=== PATIENT | female | born 1985 | race Caucasian/White ===

== ENCOUNTER 2020-05-15 12:24 | Emergency (ER) | payer OTHER ==
[2020-05-15 12:31] VITALS: TEMP 98.2
[2020-05-15] MEDS ORDERED: SODIUM CHLORIDE 0.9% 1,000 ML IV STA (12:50)
[2020-05-15 13:18] LABS: Basophils % (A) 0 %; Eosinophils # (A) 0.1 k/uL (0-0.7); Eosinophils % (A) 1 %; HCT 37.3 % (34.0-46.0); HGB 12.9 gm/dL (11.4-16.0); Lymphocytes # (A) 2.2 k/uL (1.0-4.8); Lymphocytes % (A) 25 %; MCH 31.1 pg (25.0-35.0); MCHC 34.7 g/dL (31.0-37.0); MCV 89.7 fL (80.0-100.0); Mean Platelet Volume 7.6; Monocytes # (A) 0.5 k/uL (0-1.0); Monocytes % (A) 6 %; Neutrophils # (A) 5.7 k/uL (1.3-7.7); Neutrophils % (A) 66 %; Platelet Count 285 k/uL (150-450); RBC 4.16 m/uL (3.80-5.40); RDW 12.9 % (11.5-15.5); WBC 8.8 k/uL (3.8-10.6)
[2020-05-15 13:23] LABS: Appearance,Urine Clear (Clear); Bilirubin,Urine Negative (Negative); Blood,Urine Negative (Negative); Color,Urine Yellow; Glucose,Urine (UA) Negative (Negative); Ketones,Urine Negative (Negative); Leukocyte Esterase,Urine Negative (Negative); Nitrite,Urine Negative (Negative); PH, Urine 6.5 (5.0-8.0); Protein,Urine Negative (Negative); Specific Gravity,Urine 1.017 (1.001-1.035); Urobilinogen,Urine <2.0 mg/dL (<2.0)
[2020-05-15] MEDS ORDERED: ALBUTEROL NEBULIZED 2.5 MG/3 ML INHALATION STA (13:23)
[2020-05-15 13:25] LABS: ALT 13 U/L (4-34); AST 18 U/L (14-36); African American GFR (CKD) >90 (>60 ml/min/1.73 sqM); Albumin 4.3 g/dL (3.5-5.0); Alkaline Phosphatase 43 U/L (38-126); Anion Gap 10 mmol/L; Blood Urea Nitrogen 12 mg/dL (7-17); Calcium 9.8 mg/dL (8.4-10.2); Carbon Dioxide 24 mmol/L (22-30); Chloride 103 mmol/L (98-107); Glucose 92 mg/dL (74-99); Non-African American GFR(CKD) >90 (>60 ml/min/1.73 sqM); Potassium 4.1 mmol/L (3.5-5.1); Sodium 137 mmol/L (137-145); Total Bilirubin 0.3 mg/dL (0.2-1.3); Total Protein 7.3 g/dL (6.3-8.2)
--- NOTE | 2020-05-15 13:32 | ED ---
SOB HPI - General Chief Complaint: Shortness of Breath Stated Complaint: COVID syptoms Time Seen by Provider: 05/15/20 12:35 Source: patient Mode of arrival: ambulatory Limitations: no limitations - History of Present Illness Initial Comments: Patient is a 34-year-old female currently 9 weeks , presenting to emergency Department with complaints of a cough, diarrhea, shortness of breath for the last 3 days. Patient states she had a mild cough for the first few days and then over the past 2 days, her symptoms seem to be increasing. She does have history of mild asthma. She states she does have some burning in the chest when she coughs. She has had some nausea, one episode of vomiting. She has had no appetite over the past few days. She denies any fevers but did wake up in the middle night drenched in sweat and has been having chills. She denies any abdominal pain, no dysuria, no vaginal bleeding. She has no further complaints at this time. She is afebrile upon arrival to the ER, 100% on room air.. - Related Data Home Medications Medication Instructions Recorded Confirmed Cetirizine HCl 10 mg PO DAILY 05/15/20 05/15/20 FLUoxetine HCL 20 mg PO DAILY 05/15/20 05/15/20 Fluticasone Nasal [place] [Flonase 2 spr EA NOSTRIL DAILY PRN 05/15/20 05/15/20 Nasal [place]] Omeprazole 40 mg PO DAILY 05/15/20 05/15/20 Ugb-Xowm-Nvzss Acid 1 cap PO DAILY 05/15/20 05/15/20 [-U Capsule (formulary)] carBAMazepine 200 mg PO DAILY 05/15/20 05/15/20 Previous Rx's Medication Instructions Recorded Albuterol Inhaler [Ventolin Hfa 1 puff INHALATION RT-QID PRN #1 05/15/20 Inhaler] puff Allergies Allergy/AdvReac Type Severity Reaction Status Date / Time morphine Allergy Swelling Verified 05/15/20 14:02 phenytoin [From Dilantin] AdvReac Rash/Hives Verified 05/15/20 14:02 Sulfa (Sulfonamide AdvReac Rash/Hives Verified 05/15/20 14:02 Antibiotics) Review of Systems ROS Statement: Those systems with pertinent positive or pertinent negative responses have been documented in the HPI. ROS Other: All systems not noted in ROS Statement are negative. Past Medical History Past Medical History: Cancer, GERD/Reflux, Seizure Disorder Additional Past Medical History / Comment(s): cervical cancer. History of Any Multi-Drug Resistant Organisms: None Reported Past Surgical History: Orthopedic Surgery, Uterine Ablation Additional Past Surgical History / Comment(s): colonoscopy, EGD. cyst removal on uterus and neck surgery. Past Psychological History: Anxiety, Depression Smoking Status: Never smoker Past Alcohol Use History: None Reported Past Drug Use History: None Reported General Exam - General Exam Comments Initial Comments: GENERAL: Patient is well-developed and well-nourished. Patient is nontoxic and in no acute distress. HEAD: Atraumatic, normocephalic. EYES: Pupils equal round and reactive to light, extraocular movements intact, sclera anicteric, conjunctiva are normal. Eyelids were unremarkable. ENT: TMs normal, nares patent, oropharynx clear without exudates. Moist mucous membranes. NECK: Normal range of motion, supple without lymphadenopathy or JVD. LUNGS: Unlabored respirations. Breath sounds clear to auscultation bilaterally and equal. No wheezes rales or rhonchi. HEART: Regular rate and rhythm without murmurs, rubs or gallops. ABDOMEN: Soft, nontender, normoactive bowel sounds. No guarding, no rebound. No masses appreciated. : Deferred MUSCULOSKELETAL: Normal extremities with adequate strength and normal range of motion, no pitting or edema. No clubbing or cyanosis. NEUROLOGICAL: Patient is alert and oriented x 3. Motor and sensory are also intact. Cranial nerves II through XII grossly intact. Symmetrical smile. Normal speech, normal gait. PSYCH: Normal mood, normal affect. SKIN: Warm, Dry, normal turgor, no rashes or lesions noted. Limitations: no limitations Course Vital Signs 05/15/20 05/15/20 05/15/20 12:27 13:46 13:53 Temperature 98.2 F Pulse Rate 85 84 70 Respiratory 20 16 18 Rate Blood Pressure 153/108 122/77 O2 Sat by Pulse 100 100 Oximetry Medical Decision Making - Medical Decision Making Patient is a 34-year-old female presenting to the emergency Department with concerns of a cough, cold-like symptoms for the past 3 days. She did have bodyaches, chills as well, burning when she coughs. She is currently 9 weeks as well. Her EKG showed no acute process, chest x-ray is normal. Labs are unremarkable, normal urine. Rapid influenza and Covid are both negative. I did give patient some fluids and an albuterol breathing treatment, she reports improvement in her symptoms. I discussed with patient that her symptoms most likely viral nature, I will send her home with an albuterol inhaler. Recommended continuing to increase her fluid intake, Tylenol as needed. She can follow up with her [employer]. Patient is stable for discharge. Patient is in agreement with this plan of care. Return parameters were discussed with the patient and they verbalized understanding. Case discussed with Dr. Gonzalez. - Lab Data Result diagrams: 05/15/20 12:52 05/15/20 12:52 Lab Results 05/15/20 05/15/20 05/15/20 Range/Units 12:52 12:52 12:52 WBC 8.8 (3.8-10.6) k/uL RBC 4.16 (3.80-5.40) m/uL Hgb 12.9 (11.4-16.0) gm/dL Hct 37.3 (34.0-46.0) % MCV 89.7 (80.0-100.0) fL MCH 31.1 (25.0-35.0) pg MCHC 34.7 (31.0-37.0) g/dL RDW 12.9 (11.5-15.5) % Plt Count 285 (150-450) k/uL MPV 7.6 Neutrophils % 66 % Lymphocytes % 25 % Monocytes % 6 % Eosinophils % 1 % Basophils % 0 % Neutrophils # 5.7 (1.3-7.7) k/uL Lymphocytes # 2.2 (1.0-4.8) k/uL Monocytes # 0.5 (0-1.0) k/uL Eosinophils # 0.1 (0-0.7) k/uL Basophils # 0.0 (0-0.2) k/uL Sodium 137 (137-145) mmol/L Potassium 4.1 (3.5-5.1) mmol/L Chloride 103 (98-107) mmol/L Carbon Dioxide 24 (22-30) mmol/L Anion Gap 10 mmol/L BUN 12 (7-17) mg/dL Creatinine 0.57 (0.52-1.04) mg/dL Est GFR (CKD-EPI)AfAm >90 (>60 ml/min/1.73 sqM) Est GFR (CKD-EPI)NonAf >90 (>60 ml/min/1.73 sqM) Glucose 92 (74-99) mg/dL Calcium 9.8 (8.4-10.2) mg/dL Total Bilirubin 0.3 (0.2-1.3) mg/dL AST 18 (14-36) U/L ALT 13 (4-34) U/L Alkaline Phosphatase 43 (38-126) U/L Total Protein 7.3 (6.3-8.2) g/dL Albumin 4.3 (3.5-5.0) g/dL Urine Color Urine Appearance (Clear) Urine pH (5.0-8.0) Ur Specific [place] (1.001-1.035) Urine Protein (Negative) Urine Glucose (UA) (Negative) Urine Ketones (Negative) Urine Blood (Negative) Urine Nitrite (Negative) Urine Bilirubin (Negative) Urine Urobilinogen (<2.0) mg/dL Ur Leukocyte Esterase (Negative) Coronavirus (PCR) Not Detected (Not Detectd) Influenza Type A RNA Not Detected (Not Detectd) Influenza Type B (PCR) Not Detected (Not Detectd) 05/15/20 Range/Units 13:09 WBC (3.8-10.6) k/uL RBC (3.80-5.40) m/uL Hgb (11.4-16.0) gm/dL Hct (34.0-46.0) % MCV (80.0-100.0) fL MCH (25.0-35.0) pg MCHC (31.0-37.0) g/dL RDW (11.5-15.5) % Plt Count (150-450) k/uL MPV Neutrophils % % Lymphocytes % % Monocytes % % Eosinophils % % Basophils % % Neutrophils # (1.3-7.7) k/uL Lymphocytes # (1.0-4.8) k/uL Monocytes # (0-1.0) k/uL Eosinophils # (0-0.7) k/uL Basophils # (0-0.2) k/uL Sodium (137-145) mmol/L Potassium (3.5-5.1) mmol/L Chloride (98-107) mmol/L Carbon Dioxide (22-30) mmol/L Anion Gap mmol/L BUN (7-17) mg/dL Creatinine (0.52-1.04) mg/dL Est GFR (CKD-EPI)AfAm (>60 ml/min/1.73 sqM) Est GFR (CKD-EPI)NonAf (>60 ml/min/1.73 sqM) Glucose (74-99) mg/dL Calcium (8.4-10.2) mg/dL Total Bilirubin (0.2-1.3) mg/dL AST (14-36) U/L ALT (4-34) U/L Alkaline Phosphatase (38-126) U/L Total Protein (6.3-8.2) g/dL Albumin (3.5-5.0) g/dL Urine Color Yellow Urine Appearance Clear (Clear) Urine pH 6.5 (5.0-8.0) Ur Specific [place] 1.017 (1.001-1.035) Urine Protein Negative (Negative) Urine Glucose (UA) Negative (Negative) Urine Ketones Negative (Negative) Urine Blood Negative (Negative) Urine Nitrite Negative (Negative) Urine Bilirubin Negative (Negative) Urine Urobilinogen <2.0 (<2.0) mg/dL Ur Leukocyte Esterase Negative (Negative) Coronavirus (PCR) (Not Detectd) Influenza Type A RNA (Not Detectd) Influenza Type B (PCR) (Not Detectd) - EKG Data EKG Comments: Sinus rhythm with short ME, otherwise normal ECG, no signs of acute process. Ventricular rate 73, ME interval 102, QT 370. Disposition Clinical Impression: Viral upper respiratory illness Disposition: HOME SELF-CARE Condition: Stable Instructions (If sedation given, give patient instructions): Upper Respiratory Infection (ED) Additional Instructions: Please return to the Emergency Department if symptoms worsen or any other concerns. Flu and Covid were negative today. Chest x-ray was normal. Use inhaler for shortness of breath, cough. May take Tylenol. Follow-up with your [employer]. Prescriptions: Albuterol Inhaler [Ventolin Hfa Inhaler] 1 puff INHALATION RT-QID PRN #1 puff PRN Reason: Shortness Of Breath Is patient prescribed a controlled substance at d/c from ED?: No Referrals: Fritz Thomas [Primary Care Provider] - 1-2 days
--- NOTE | 2020-05-15 13:39 | XR ---
EXAMINATION TYPE: XR chest 2V DATE OF EXAM: 05/15/2020 COMPARISON: None HISTORY: 34-year-old female, cough, dyspnea, 9 weeks . TECHNIQUE: PA and lateral views FINDINGS: The cardiomediastinal silhouette, aorta, and pulmonary vasculature are within normal limits. Lungs an d pleural spaces are clear. IMPRESSION: No acute cardiopulmonary process.
[2020-05-15 13:53] VITALS: BP 122/77; PULSE 70; RESP 18
[2020-05-15 14:31] LABS: SARS-CoV-2 RNA Rapid Abbott Not Detected (Not Detectd)
== END 2020-05-15 15:04 | disposition home or self-care (01) ==
LOC: EC 12:24
DX: O98.511 Other viral diseases complicating pregnancy, first trimester (principal); B34.9 Viral infection, unspecified; O99.341 Other mental disorders complicating pregnancy, first trimester; F41.9 Anxiety disorder, unspecified; F32.9 Major depressive disorder, single episode, unspecified; O99.611 Diseases of the digestive system complicating pregnancy, first trimester; K21.9 Gastro-esophageal reflux disease without esophagitis; O99.351 Diseases of the nervous system complicating pregnancy, first trimester; G40.909 Epilepsy, unspecified, not intractable, without status epilepticus; Z79.899 Other long term (current) drug therapy; Z88.5 Allergy status to narcotic agent; Z88.2 Allergy status to sulfonamides; Z88.8 Allergy status to other drugs, medicaments and biological substances; Z3A.09 9 weeks gestation of pregnancy; Z85.41 Personal history of malignant neoplasm of cervix uteri; Z20.822 Contact with and (suspected) exposure to COVID-19
CPT/HCPCS: 36415; 71046; 80053; 81003; 85025; 87502; 87635; 93005; 94640; 96360; 99285

== ENCOUNTER → 2020-05-30 | Outpatient (CLI) | payer OTHER | END | disposition home or self-care (01) | LOC: LABWHC1 12:46 | PROVIDERS: ATTEND Nurse Practitioner Adult Health | DX: U07.1 COVID-19 (principal) | CPT/HCPCS: U0003; C9803; U0005 ==

== ENCOUNTER 2020-09-23 21:06 | Outpatient (CLI) | payer OTHER ==
[2020-09-23] MEDS ORDERED: ONDANSETRON 4 MG/2 ML VIAL IVP STA (21:42)
[2020-09-23] MEDS ORDERED: LACTATED RINGERS 1,000 ML IV SCH (21:45)
[2020-09-24 01:57] VITALS: BP 136/74; PULSE 98; RESP 16; TEMP 97.7
--- NOTE | 2020-10-27 08:21 | P.MSEPDOC ---
Presenting Problems - Arrival Data Date of Arrival on Unit: 09/23/20 Time of Arrival on Unit: 21:06 Mode of Transport: Ambulatory - Complaint OB-Reason for Admission/Chief Complaint: Acute Nausea/Vomiting Medical History - Information : 4 Para: 2 Term: 0 : 2 Abortions: Spontaneous or Elective: 1 Number of Living Children: 2 - Gestational Age Gestational Age by JERILYN (wks/days): 24 Weeks and 4 Days - History Complications: Prior Comment: Pt reports history of 3 deliveries. One at 8 months, one at 7.5 months and one at 6 months Review of Systems - Review of Systems Constitutional: No problems Breast: No problems ENT: No problems Cardiovascular: No problems Respiratory: No problems Gastrointestinal: No problems Genitourinary: No problems Musculoskeletal: No problems Neurological: No problems Skin: No problems Vital Signs - Temperature Temperature: 97.7 F Temperature Source: Temporal Artery Scan - Pulse Pulse Oximetery Pulse Rate: 98 Pulse Assessment Method: Automatic Cuff - Respirations Respiratory Rate: 16 Oxygen Delivery Method: Room Air O2 Sat by Pulse Oximetry: 97 - Blood Pressure Right Arm Blood Pressure: 136/74 Blood Pressure Mean: 94 Blood Pressure Source: Automatic Cuff Medical Screen Scoring - Assessment - Baby A Baseline FHR: 140 Heart Rate - NICHD Category: Category I (Normal) NST: Reactive Physician Notification - Physician Notified Physician Notified Date: 09/23/20 Physician Notified Time: 21:30 Physician: Sherita Villasenor New Order Received: Yes - Notification Comment Comment: Dr. Villasenor in dept and updated re: pt c/o nausea/vomiting and diarrhea that. started today around 1200, pt report of not being able to keep down any food or fluids, mom and brother sick with nausea/vomiting and diarrhea as well, gestational age, hx of 3 deliveries, steroid shots weekly with Dr. Schaffer, seeing specialist in [place] r/t history of deliveries and vital signs WNL. Strip reviewed by Dr. Villasenor. Orders received to start IV, give one bag of LR and [address] Villasenor states FHTs look great and. pt can be taken off the monitor after 20 min of monitoring. Orders received to keep toco in place. Additionally orders received at 2248 to d/c pt home once LR is infused if pt is feeling better and tolerating oral fluids Maternal Triage Index - Maternal Triage Index Presenting for scheduled procedure w/no complaint: No - Stat/Priority 1 Stat Priority 1: No - Urgent/Priority 2 Urgent Priority 2: No - Prompt/Priority 3 Prompt Priority 3: No - Non-Urgent/Priority 4 Non-Urgent Priority 4: Yes Criteria Met for Priority 4: Nausea/vomiting/diarrhea Disposition - Disposition OB Disposition: Discharge to home Discharge Date: 09/24/20 Discharge Time: 23:50 I agree with the RN Medical Screening Exam: Yes Case reviewed; plan agreed upon as documented in EMR&OBIX.: Yes Diagnosis: VOMITING OF , UNSPECIFIED
== END 2020-09-23 23:50 | disposition home or self-care (01) ==
LOC: FBPOP 21:06
PROVIDERS: ATTEND Obstetrics & Gynecology
DX: O21.2 Late vomiting of pregnancy (principal); Z3A.25 25 weeks gestation of pregnancy
CPT/HCPCS: 96360; 96361; 99214

== ENCOUNTER 2020-11-13 20:37 | Outpatient (CLI) | payer OTHER ==
[2020-11-13] MEDS ORDERED: BETAMET ACET-BETAMETH SOD PHOS 6 MG/ML MDV IM SCH (22:30)
[2020-11-14 01:59] VITALS: BP 127/79; PULSE 70; RESP 16; TEMP 97
--- NOTE | 2020-11-18 07:46 | P.MSEPDOC ---
Presenting Problems - Arrival Data Date of Arrival on Unit: 11/13/20 Time of Arrival on Unit: 20:37 Mode of Transport: Wheelchair - Complaint OB-Reason for Admission/Chief Complaint: Possible Onset of Labor, Vaginal Bleeding Comment: presents with vaginal spotting that started around 5pm. also has pressure. pt states she has had all babies. 30 weeks, 32 weeks and 28 week ( 28. week baby shortly after delivery). states her cervix just doesnt keep babies in Medical History - Information : 4 Para: 3 Term: 0 : 3 Abortions: Spontaneous or Elective: 0 Number of Living Children: 2 - Gestational Age Gestational Age by JERILYN (wks/days): 31 Weeks and 6 Days - History Complications: Prior Review of Systems - Review of Systems Constitutional: No problems Breast: No problems ENT: No problems Cardiovascular: No problems Respiratory: No problems Gastrointestinal: No problems Genitourinary: No problems Musculoskeletal: No problems Neurological: No problems Skin: No problems Vital Signs - Temperature Temperature: 97.0 F Temperature Source: Temporal Artery Scan - Pulse Right Pulse Rate: 70 Pulse Assessment Method: Automatic Cuff - Respirations Respiratory Rate: 16 Oxygen Delivery Method: Room Air O2 Sat by Pulse Oximetry: 97 - Blood Pressure Right Arm Blood Pressure: 127/79 Blood Pressure Mean: 95 Blood Pressure Source: Automatic Cuff Medical Screen Scoring - Cervical Exam Dilation (cm): 0 Effacement (%): 50 Membranes: Intact - Assessment - Baby A Baseline FHR: 120 Heart Rate - NICHD Category: Category I (Normal) Physician Notification - Physician Notified Physician Notified Date: 11/14/20 Physician Notified Time: 20:50 Physician: Iggy Haynes New Order Received: Yes - Notification Comment Comment: obtain FFn spec then Dr will come in to do cervical exam. 2224 Dr Haynes notified positive FFn. Orders received for betamethasone and pt to follow up at her own Dr's office tomorrow for second dose and eval by [facility] Maternal Triage Index - Maternal Triage Index Presenting for scheduled procedure w/no complaint: No - Stat/Priority 1 Stat Priority 1: No - Urgent/Priority 2 Urgent Priority 2: Yes Provider Notified: Dr Haynes Provider Notified Time: 21:00 Criteria Met for Priority 2: 31 week pressure and spotting with history [address] Hsieh in department and aware of her complaints 5 mins after admit. Disposition - Disposition OB Disposition: Discharge to home Discharge Date: 11/14/20 Discharge Time: 22:55 I agree with the RN Medical Screening Exam: Yes Case reviewed; plan agreed upon as documented in EMR&OBIX.: Yes Diagnosis: FALSE LABOR BEFORE 37 COMPLETED WEEKS OF GEST, THIRD TRI
== END 2020-11-13 22:55 | disposition home or self-care (01) ==
LOC: FBPOP 20:37
PROVIDERS: ATTEND Obstetrics & Gynecology
DX: O47.03 False labor before 37 completed weeks of gestation, third trimester (principal); Z3A.31 31 weeks gestation of pregnancy; Z88.5 Allergy status to narcotic agent; Z88.2 Allergy status to sulfonamides; Z88.9 Allergy status to unspecified drugs, medicaments and biological substances; Z88.8 Allergy status to other drugs, medicaments and biological substances
CPT/HCPCS: 82731; G0463; J0702; 99214

== ENCOUNTER 2020-11-14 17:21 | Outpatient (CLI) | payer OTHER ==
[2020-11-14] MEDS ORDERED: BETAMET ACET-BETAMETH SOD PHOS 6 MG/ML MDV IM SCH (17:45)
[2020-11-14 17:58] VITALS: BP 136/86; PULSE 86; RESP 16
--- NOTE | 2020-11-15 07:03 | P.MSEPDOC ---
Presenting Problems - Arrival Data Date of Arrival on Unit: 11/14/20 Time of Arrival on Unit: 17:21 Mode of Transport: Ambulatory - Complaint OB-Reason for Admission/Chief Complaint: Celestone Injection Medical History - Information : 4 Para: 3 Term: 0 : 3 Abortions: Spontaneous or Elective: 0 Number of Living Children: 2 - Gestational Age Gestational Age by JERILYN (wks/days): 31 Weeks and 6 Days - History Complications: Prior Review of Systems - Review of Systems Constitutional: No problems Breast: No problems ENT: No problems Cardiovascular: No problems Respiratory: No problems Gastrointestinal: No problems Genitourinary: No problems Musculoskeletal: No problems Neurological: No problems Skin: No problems Vital Signs - Pulse Pulse Oximetery Pulse Rate: 86 Pulse Assessment Method: Pulse Oximetry - Respirations Respiratory Rate: 16 Oxygen Delivery Method: Room Air O2 Sat by Pulse Oximetry: 100 - Blood Pressure Right Arm Blood Pressure: 136/86 Blood Pressure Mean: 102 Blood Pressure Source: Automatic Cuff Medical Screen Scoring - Assessment - Baby A Baseline FHR: 130 Heart Rate - NICHD Category: Category I (Normal) NST: Reactive Physician Notification - Physician Notified Physician Notified Date: 11/14/20 Physician Notified Time: 17:34 Physician: Gorge Fagan New Order Received: Yes - Notification Comment Comment: Dr. Fagan on unit, report given, Pt here for a 2nd celestone shot. Fetus very. active and hard to keep on the monitor. Pt has no other complaints. Per Dr. Fagan, NSt. is not needed, just a few minute FHR tracing. Pt can also have her 2nd dose of celestone. and be discharged following with instructions to follow up with her own doctor or at [facility] [place] Maternal Triage Index - Maternal Triage Index Presenting for scheduled procedure w/no complaint: No - Stat/Priority 1 Stat Priority 1: No - Urgent/Priority 2 Urgent Priority 2: No - Prompt/Priority 3 Prompt Priority 3: No - Non-Urgent/Priority 4 Non-Urgent Priority 4: No - Scheduled/Requesting Priority 5 Scheduled/Requesting Priority 5: Yes Criteria Met for Priority 5: 2nd celestone injection Disposition - Disposition OB Disposition: Discharge to home Discharge Date: 11/14/20 Discharge Time: 17:50 I agree with the RN Medical Screening Exam: Yes Case reviewed; plan agreed upon as documented in EMR&OBIX.: Yes Diagnosis: RELATED CONDITIONS, UNSPECIFIED, THIRD TRIMESTER (Please see previous triage visit yesterday per Dr. Haynes. Patient was evaluated by Dr. Jeffries and instructed to return today for Celestone due to history of delivery and positive fibronectin. Patient had reassuring monitoring is given Celestone instructed follow-up as directed by Dr. Jeffries.)
== END 2020-11-14 17:50 | disposition home or self-care (01) ==
LOC: FBPOP 17:21
PROVIDERS: ATTEND Obstetrics & Gynecology
DX: O36.5930 Maternal care for other known or suspected poor fetal growth, third trimester, not applicable or unspecified (principal); Z3A.31 31 weeks gestation of pregnancy
CPT/HCPCS: 96372; G0463; J0702; 99213

== ENCOUNTER → 2021-10-09 | Outpatient (CLI) | payer OTHER ==
--- NOTE | 2021-10-09 14:52 | CT ---
EXAMINATION TYPE: CT abdomen pelvis wo con DATE OF EXAM: 10/09/2021 COMPARISON: None HISTORY: 26 year-old female M54.50, low back pain, R10.9, Abdominal pain CT DLP: 244.5 mGycm. Automated exposure control for dose reduction was used. TECHNIQUE: Contiguous axial scanning of the abdomen and pelvis without IV contrast. Coronal and sagit romeo reconstructions performed. FINDINGS: Heart normal size without pericardial effusion. Lung bases clear without pleural effusion. Noncontrast appearance of the liver, gallbladder, adrenal glands, kidneys, spleen with hilar splenule , and pancreas show no gross abnormality. Scattered nonenlarged and borderline sized mesenteric lymph nodes measuring up to 9 mm, likely reacti ve/post inflammatory. No dilated small bowel, free fluid, free air. Normal appendix. Mild overall stool burden. No pericolonic inflammatory change. Mild circumferential bladder wall thickening. Uterus anteverted. Left-sided pelvic phleboliths. Both ovaries are visualized. No abnormal fluid collection in the pelvis or pelvic lymphadenopathy. Bones: There is a broad-based posterior disc protrusion at L4-L5 mildly narrowing the spinal canal. M ild facet arthropathy lower lumbar spine. IMPRESSION: 1. No acute inflammatory process identified in the abdomen or pelvis to explain the patient's symptom s. 2. Broad-based disc herniation at L4-L5 contributing to mild spinal canal narrowing.
== END | disposition home or self-care (01) ==
LOC: RADCTMAIN 14:13
PROVIDERS: ATTEND Family Medicine
DX: M51.26 Other intervertebral disc displacement, lumbar region (principal); M47.816 Spondylosis without myelopathy or radiculopathy, lumbar region
CPT/HCPCS: 74176

== ENCOUNTER → 2022-01-07 | Outpatient (CLI) | payer OTHER ==
--- NOTE | 2022-01-07 11:41 | MR ---
EXAMINATION TYPE: MR cervical spine wo con DATE OF EXAM: 01/07/2022 COMPARISON: None HISTORY: Pain and Numbness in LT and RT arms and fingers x1 year TECHNIQUE: Multiplanar, multisequence images of the cervical spine were acquired without contrast. C2-C3: No evidence for degenerative disc disease. No disc bulge/herniation or protrusion. No Canal stenosis. Foramina are patent bilaterally. C3-C4: Posterior central disc protrusion causes mild anterior mass effect on the thecal sac, there is some uncovertebral joint hypertrophy encroaching minimally on the foramina. No significant spinal st enosis. C4-C5: Posterior broad-based disc bulge, extension endplate disc complex causes anterior mass effect on the thecal sac, possible contact with the anterior cord, only mild spinal stenosis, there is uncov ertebral joint hypertrophy causing foraminal encroachment right greater than left. C5-C6: There is a left posterior paracentral disc protrusion, extension of endplate disc complex caus ing some anterolateral mass effect on the thecal sac, contributing to cause some left sided foraminal encroachment. No significant spinal stenosis. Correlate for left C6 radiculopathy. C6-C7: Posterior broad-based disc bulge causes mild anterior mass effect on the thecal sac. Only mild spinal stenosis. Bilateral uncovertebral joint hypertrophy results in foraminal encroachment. C7-T1: No evidence for degenerative disc disease. No disc bulge/herniation or protrusion. No Canal stenosis. Foramina are patent bilaterally. Cervical segments are intact. There is retrolisthesis grade 1 C4-5, C5-6, there is spondylosis at C4 -5, C5-6 and C6-7 with associated loss of disc height signal, endplate discogenic marrow signal harvey e consistent with disc desiccation and degenerative disc disease.. Cervical spinal cord is of normal signal. Craniovertebral junction relationships are within normal limits. IMPRESSION: Multilevel degenerative disc disease and foraminal encroachment.
== END | disposition home or self-care (01) ==
LOC: RADMRIMAIN 09:15
PROVIDERS: ATTEND Family Medicine
DX: M54.12 Radiculopathy, cervical region (principal)
CPT/HCPCS: 72141

== ENCOUNTER 2022-12-14 13:51 | Observation (INO) | payer OTHER ==
[2022-12-14 14:44] LABS: INR 0.9 (<1.2); Partial Thromboplastin Time 23.1 sec (22.0-30.0); Prothrombin Time 9.9 sec (9.0-12.0)
[2022-12-14 14:48] LABS: Basophils % (A) 0 %; Eosinophils # (A) 0.2 k/uL (0-0.7); Eosinophils % (A) 3 %; HCT 38.4 % (34.0-46.0); Lymphocytes # (A) 2.2 k/uL (1.0-4.8); Lymphocytes % (A) 31 %; MCH 32.2 pg (25.0-35.0); MCHC 33.8 g/dL (31.0-37.0); MCV 95.4 fL (80.0-100.0); Mean Platelet Volume 8.4; Monocytes # (A) 0.3 k/uL (0-1.0); Monocytes % (A) 4 %; Neutrophils # (A) 4.2 k/uL (1.3-7.7); Neutrophils % (A) 59 %; Platelet Count 290 k/uL (150-450); RBC 4.02 m/uL (3.80-5.40); RDW 13.3 % (11.5-15.5); WBC 7.1 k/uL (3.8-10.6)
[2022-12-14 14:51] LABS: ALT 30 U/L (4-34); AST 32 U/L (14-36); African American GFR (CKD) >90 (>60 ml/min/1.73 sqM); Albumin 3.8 g/dL (3.5-5.0); Alkaline Phosphatase 49 U/L (38-126); Anion Gap 11 mmol/L; Blood Urea Nitrogen 8 mg/dL (7-17); Calcium 8.9 mg/dL (8.4-10.2); Carbon Dioxide 21 mmol/L (22-30); Chloride 105 mmol/L (98-107); Creatine Kinase 82 U/L (30-135); Glucose 103 mg/dL (74-99); Non-African American GFR(CKD) >90 (>60 ml/min/1.73 sqM); Potassium 4.6 mmol/L (3.5-5.1); Sodium 137 mmol/L (137-145); Total Bilirubin 0.4 mg/dL (0.2-1.3); Total Protein 6.6 g/dL (6.3-8.2)
--- NOTE | 2022-12-14 15:41 | CT ---
EXAMINATION TYPE: CT brain wo con DATE OF EXAM: 12/14/2022 COMPARISON: None HISTORY: left sided numbness CT DLP: 978.2 mGycm. Automated Exposure Control for Dose Reduction was Utilized. TECHNIQUE: CT scan of the head is performed without contrast. FINDINGS: There is no acute intracranial hemorrhage, mass effect, or midline shift identified. The ventricles and sulci are within normal limits in size. The globes are intact and the visualized sin uses are clear. Calcification of the basal ganglia IMPRESSION: No acute intracranial hemorrhage, mass effect, or midline shift is seen. If high clinica l concern for acute ischemia consider MRI.
--- NOTE | 2022-12-14 15:42 | XR ---
EXAMINATION TYPE: XR chest 2V DATE OF EXAM: 12/14/2022 COMPARISON: NONE HISTORY: Chest pain TECHNIQUE: Frontal and lateral views of the chest are obtained. FINDINGS: There is no focal air space opacity. No evidence for pneumothorax. No pleural effusion. The cardiac silhouette size is within normal limits. The osseous structures are grossly intact. IMPRESSION: 1. No acute cardiopulmonary process.
--- NOTE | 2022-12-14 16:01 | CT ---
EXAMINATION TYPE: CT angio head neck DATE OF EXAM: 12/14/2022 COMPARISON: None HISTORY: left sided numbness CT DLP: 215.1 mGycm CONTRAST: Performed with IV Contrast, patient injected with 65cc mL of Isovue 370. Combination Contrast CTA cervical carotids and [place] CTA cervical carotids with 3-D recons truction Contrast CTA of the cervical carotids was performed 3-D reconstruction imaging obtained at a separate workstation. Right carotid system: Mild plaque is seen of the right common carotid artery. There is mild plaque a lso noted at the carotid bulb and proximal ICA. No significant diameter reduction. ECA is patent. Right vertebral artery appears unremarkable. Left carotid system: Mild plaque is seen of the left common carotid artery. There is mild plaque als o noted at the carotid bulb and proximal ICA. No significant diameter reduction. ECA is patent. Lef t vertebral artery appears unremarkable. IMPRESSION: 1. No significant diameter reduction to account for the patient's symptoms. CTA [place] with 3-D reconstruction Contrast CTA of the [place] was performed 3-D reconstruction imaging obtained at a separate workstation. Vertebrobasilar system as well as intracranial portions of the internal carotid arteries and their ma lopez tributaries are patent. I do not see evidence for sizable aneurysm or vascular malformation. Pl ease note MRI provides greater sensitivity and specificity. Visualized brain appears grossly unremar kable. IMPRESSION: 1. No significant abnormality. NASCET criteria was used in interpretation of this exam?
--- NOTE | 2022-12-14 16:43 | ED ---
General Adult HPI - General Chief complaint: Neuro Symptoms/Deficit Stated complaint: poss mini stroke Time Seen by Provider: 12/14/22 14:00 Source: patient Mode of arrival: ambulatory Limitations: no limitations - History of Present Illness Initial comments: 37-year-old female with past medical history of GERD, dysrhythmia who presents to the emergency Department reporting right-sided facial tingling and left hand weakness. States that she went to bed last night around midnight. She awoke this morning at 6 AM and has had persistent symptoms of left arm weakness and right facial tingling. She is right hand dominant. Denies any facial droop. N o slurred speech. Does admit to a headache without visual changes. No nausea or vomiting. No recent head injuries. No history of stroke or MS. No concern for . No other alleviating, precipitating or modifying factors - Related Data Home Medications Medication Instructions Recorded Confirmed Cholecalciferol [Vitamin D3 (25 50 mcg PO DAILY 12/14/22 12/14/22 Mcg = 1000 Iu)] Desvenlafaxine Succinate [Pristiq 50 mg PO DAILY 12/14/22 12/14/22 ER] EPINEPHrine (Auto Inject) [Epipen] 0.3 mg IM ONCE PRN 12/14/22 12/14/22 Famotidine [Pepcid] 20 mg PO HS 12/14/22 12/14/22 clonazePAM [KlonoPIN] 0.25 mg PO DAILY PRN 12/14/22 12/14/22 lamoTRIgine [LaMICtal] 25 mg PO HS 12/14/22 12/14/22 Allergies Allergy/AdvReac Type Severity Reaction Status Date / Time phenytoin [From Dilantin] Allergy Rash/Hives Verified 12/14/22 17:49 Sulfa (Sulfonamide Allergy Rash/Hives Verified 12/14/22 17:49 Antibiotics) iron AdvReac Nausea & Verified 12/14/22 17:49 Vomiting & Diarrhea morphine AdvReac Swelling Verified 12/14/22 17:49 Review of Systems ROS Statement: Those systems with pertinent positive or pertinent negative responses have been documented in the HPI. ROS Other: All systems not noted in ROS Statement are negative. Past Medical History Past Medical History: Cancer, GERD/Reflux, Seizure Disorder Additional Past Medical History / Comment(s): cervical cancer. History of Any Multi-Drug Resistant Organisms: None Reported Past Surgical History: Orthopedic Surgery, Uterine Ablation Additional Past Surgical History / Comment(s): colonoscopy, EGD. cyst removal on uterus and neck surgery. Past Psychological History: Anxiety, Depression Smoking Status: Vaper Past Alcohol Use History: Occasional Past Drug Use History: Marijuana General Exam Limitations: no limitations General appearance: alert, in no apparent distress Head exam: Present: atraumatic, normocephalic, normal inspection Eye exam: Present: normal appearance, PERRL, EOMI. Absent: scleral icterus, conjunctival injection, periorbital swelling ENT exam: Present: normal exam, mucous membranes moist Neck exam: Present: normal inspection. Absent: tenderness, meningismus, lymphadenopathy Respiratory exam: Present: normal lung sounds bilaterally. Absent: respiratory distress, wheezes, rales, rhonchi, stridor Cardiovascular Exam: Present: regular rate, normal rhythm, normal heart sounds. Absent: systolic murmur, diastolic murmur, rubs, gallop, clicks GI/Abdominal exam: Present: soft, normal bowel sounds. 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 Absent: tenderness, pedal edema, joint swelling, calf tenderness Back exam: Present: normal inspection Neurological exam: Present: alert, oriented X3, CN II-XII intact Psychiatric exam: Present: normal affect, normal mood Skin exam: Present: warm, dry, intact, normal color. Absent: rash Course Vital Signs 12/14/22 12/14/22 12/14/22 13:53 14:30 15:00 Temperature 98.1 F Pulse Rate 63 94 65 Respiratory 18 Rate Blood Pressure 160/81 130/96 127/88 O2 Sat by Pulse 100 98 99 Oximetry 12/14/22 12/14/22 15:30 16:30 Temperature Pulse Rate 57 L Respiratory 18 18 Rate Blood Pressure 131/85 130/89 O2 Sat by Pulse 99 99 Oximetry Medical Decision Making - Medical Decision Making Was pt. sent in by a medical professional or institution (, PA, COMIC BOOK ARTIST, urgent care, hospital, or shelter...) When possible be specific @ -No Did you speak to anyone other than the patient for history (EMS, parent, family, police, friend...)? What history was obtained from this source @ -No Did you review nursing and triage notes (agree or disagree)? Why? @ -I reviewed and agree with nursing and triage notes Were old charts reviewed (outside hosp., previous admission, EMS record, old EKG, old radiological studies, urgent care reports/EKG's, shelter records)? Report findings @ -No old charts were reviewed Differential Diagnosis (chest pain, altered mental status, abdominal pain women, abdominal pain men, vaginal bleeding, weakness, fever, dyspnea, syncope, headache, dizziness, GI bleed, back pain, seizure, CVA, palpatations, mental health, musculoskeletal)? @ -Differential CVA Ischemic stroke, hemorrhagic stroke, brain tumor, atypical migraine, Wernicke's encephalopathy, seizure, multiple sclerosis, meningitis, encephalitis, hypoglycemia, Guillain-Blanchard, electrolytes disturbance, myasthenia gravis.... This is not meant to be an all-inclusive list EKG interpreted by me (3pts min.). @ -Yes and demonstrates sinus rhythm with a rate of 68. IN interval 107. QRS 86. QTC of 403. Frequent PVCs. X-rays interpreted by me (1pt min.). @ -Yes and demonstrates no acute intracardiac process CT interpreted by me (1pt min.). @ -S and demonstrates no acute intracranial process U/S interpreted by me (1pt. min.). @ -None done What testing was considered but not performed or refused? (CT, X-rays, U/S, labs)? Why? @ -None What meds were considered but not given or refused? Why? @ -None Did you discuss the management of the patient with other professionals (professionals i.e. , PA, COMIC BOOK ARTIST, lab, RT, psych nurse, outreach and education social worker, retail client solutions consultant, teacher, casino surveillance officer, medical case worker)? Give summary @ -Spoke with [place] who agreed to admit the patient Was smoking cessation discussed for >3mins.? @ -No Was critical care preformed (if so, how long)? @ -No Were there social determinants of health that impacted care today? How? (H omelessness, low income, unemployed, alcoholism, drug addiction, transportation, low edu. Level, literacy, decrease access to med. care, correction, rehab)? @ -No Was there de-escalation of care discussed even if they declined (Discuss DNR or withdrawal of care, Hospice)? DNR status @ -No What co-morbidities impacted this encounter? (DM, HTN, Smoking, COPD, CAD, Cancer, CVA, ARF, Chemo, Hep., AIDS, mental health diagnosis, sleep apnea, morbid obesity)? @ -None Was patient admitted / discharged? Hospital course, mention meds given and route, prescriptions, significant lab abnormalities, going to OR and other pertinent info. @ -Upon arrival patient was placed in room 17. Thorough history and physical exam was performed. 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 IV is established. Laboratory studies are conducted. CT negative for any acute process. As she reports to continued symptoms I did recommend admission for neurology consultation which she was agreeable to. Spoke with [place] who agreed to admit the patient. She was given an aspirin and a statin and taken to the floor in stable condition Undiagnosed new problem with uncertain prognosis? @ -Yes Drug Therapy requiring intensive monitoring for toxicity (Heparin, Nitro, Insulin, Cardizem)? @ -No Were any procedures done? @ -No Diagnosis/symptom? @ -default Acute, or Chronic, or Acute on Chronic? @ -Acute left upper extremity weakness, acute right facial tingling, possible TIA Uncomplicated (without systemic symptoms) or Complicated (systemic symptoms)? @ -Complicated Side effects of treatment? @ -No Exacerbation, Progression, or Severe Exacerbation? @ -No Poses a threat to life or bodily function? How? (Chest pain, USA, PR, pneumonia, PE, COPD, DKA, ARF, appy, cholecystitis, CVA, Diverticulitis, Homicidal, Suicidal, threat to staff... and all critical care pts) @ -Yes patient presents with strokelike symptoms - Lab Data Result diagrams: 12/14/22 14:25 12/14/22 14:25 Lab Results 12/14/22 12/14/22 12/14/22 Range/Units 08:20 14:25 14:25 WBC 7.1 (3.8-10.6) k/uL RBC 4.02 (3.80-5.40) m/uL Hgb 13.0 (11.4-16.0) gm/dL Hct 38.4 (34.0-46.0) % MCV 95.4 (80.0-100.0) fL MCH 32.2 (25.0-35.0) pg MCHC 33.8 (31.0-37.0) g/dL RDW 13.3 (11.5-15.5) % Plt Count 290 (150-450) k/uL MPV 8.4 Neutrophils % 59 % Lymphocytes % 31 % Monocytes % 4 % Eosinophils % 3 % Basophils % 0 % Neutrophils # 4.2 (1.3-7.7) k/uL Lymphocytes # 2.2 (1.0-4.8) k/uL Monocytes # 0.3 (0-1.0) k/uL Eosinophils # 0.2 (0-0.7) k/uL Basophils # 0.0 (0-0.2) k/uL PT 9.9 (9.0-12.0) sec INR 0.9 (<1.2) APTT 23.1 (22.0-30.0) sec D-Dimer (<0.60) mg/L FEU Sodium (137-145) mmol/L Potassium (3.5-5.1) mmol/L Chloride (98-107) mmol/L Carbon Dioxide (22-30) mmol/L Anion Gap mmol/L BUN (7-17) mg/dL Creatinine (0.52-1.04) mg/dL Est GFR (CKD-EPI)AfAm (>60 ml/min/1.73 sqM) Est GFR (CKD-EPI)NonAf (>60 ml/min/1.73 sqM) Glucose (74-99) mg/dL Calcium (8.4-10.2) mg/dL Magnesium (1.6-2.3) mg/dL Total Bilirubin (0.2-1.3) mg/dL AST (14-36) U/L ALT (4-34) U/L Alkaline Phosphatase (38-126) U/L Creatine Kinase (30-135) U/L Troponin I (0.000-0.034) ng/mL Total Protein (6.3-8.2) g/dL Albumin (3.5-5.0) g/dL TSH 0.447 L (0.465-4.680) mIU/L Free T4 0.72 L (0.78-2.19) ng/dL 12/14/22 12/14/22 12/14/22 Range/Units 14:25 14:25 14:25 WBC (3.8-10.6) k/uL RBC (3.80-5.40) m/uL Hgb (11.4-16.0) gm/dL Hct (34.0-46.0) % MCV (80.0-100.0) fL MCH (25.0-35.0) pg MCHC (31.0-37.0) g/dL RDW (11.5-15.5) % Plt Count (150-450) k/uL MPV Neutrophils % % Lymphocytes % % Monocytes % % Eosinophils % % Basophils % % Neutrophils # (1.3-7.7) k/uL Lymphocytes # (1.0-4.8) k/uL Monocytes # (0-1.0) k/uL Eosinophils # (0-0.7) k/uL Basophils # (0-0.2) k/uL PT (9.0-12.0) sec INR (<1.2) APTT (22.0-30.0) sec D-Dimer (<0.60) mg/L FEU Sodium 137 (137-145) mmol/L Potassium 4.6 (3.5-5.1) mmol/L Chloride 105 (98-107) mmol/L Carbon Dioxide 21 L (22-30) mmol/L Anion Gap 11 mmol/L BUN 8 (7-17) mg/dL Creatinine 0.64 (0.52-1.04) mg/dL Est GFR (CKD-EPI)AfAm >90 (>60 ml/min/1.73 sqM) Est GFR (CKD-EPI)NonAf >90 (>60 ml/min/1.73 sqM) Glucose 103 H (74-99) mg/dL Calcium 8.9 (8.4-10.2) mg/dL Magnesium 1.7 (1.6-2.3) mg/dL Total Bilirubin 0.4 (0.2-1.3) mg/dL AST 32 (14-36) U/L ALT 30 (4-34) U/L Alkaline Phosphatase 49 (38-126) U/L Creatine Kinase 82 (30-135) U/L Troponin I <0.012 (0.000-0.034) ng/mL Total Protein 6.6 (6.3-8.2) g/dL Albumin 3.8 (3.5-5.0) g/dL TSH (0.465-4.680) mIU/L Free T4 (0.78-2.19) ng/dL 12/14/22 Range/Units 14:25 WBC (3.8-10.6) k/uL RBC (3.80-5.40) m/uL Hgb (11.4-16.0) gm/dL Hct (34.0-46.0) % MCV (80.0-100.0) fL MCH (25.0-35.0) pg MCHC (31.0-37.0) g/dL RDW (11.5-15.5) % Plt Count (150-450) k/uL MPV Neutrophils % % Lymphocytes % % Monocytes % % Eosinophils % % Basophils % % Neutrophils # (1.3-7.7) k/uL Lymphocytes # (1.0-4.8) k/uL Monocytes # (0-1.0) k/uL Eosinophils # (0-0.7) k/uL Basophils # (0-0.2) k/uL PT (9.0-12.0) sec INR (<1.2) APTT (22.0-30.0) sec D-Dimer 0.33 (<0.60) mg/L FEU Sodium (137-145) mmol/L Potassium (3.5-5.1) mmol/L Chloride (98-107) mmol/L Carbon Dioxide (22-30) mmol/L Anion Gap mmol/L BUN (7-17) mg/dL Creatinine (0.52-1.04) mg/dL Est GFR (CKD-EPI)AfAm (>60 ml/min/1.73 sqM) Est GFR (CKD-EPI)NonAf (>60 ml/min/1.73 sqM) Glucose (74-99) mg/dL Calcium (8.4-10.2) mg/dL Magnesium (1.6-2.3) mg/dL Total Bilirubin (0.2-1.3) mg/dL AST (14-36) U/L ALT (4-34) U/L Alkaline Phosphatase (38-126) U/L Creatine Kinase (30-135) U/L Troponin I (0.000-0.034) ng/mL Total Protein (6.3-8.2) g/dL Albumin (3.5-5.0) g/dL TSH (0.465-4.680) mIU/L Free T4 (0.78-2.19) ng/dL Disposition Clinical Impression: Left hand weakness, Numbness and tingling of right face Disposition: ADMITTED IP TO THIS [facility] Condition: Stable Is patient prescribed a controlled substance at d/c from ED?: No Time of Disposition: 16:43 Decision to Admit Reason: Admit from EC Decision Date: 12/14/22 Decision Time: 16:43
--- NOTE | 2022-12-14 17:07 | P.HPIM ---
History of Present Illness Patient is a pleasant 37-year-old the female with family history of for premature coronary artery disease and strokes, personal history of his arrhythmia, not atrial fibrillation came to emergency department complaints of right-sided tingling numbness in the V2 V3 territory along with weakness in the left arm and difficulty ambulating. Patient had a CT angiography of the head didn't along with pain CT which is within normal limits. Patient is scheduled for an outpatient stress test tomorrow. Patient is also pending a pleuritic chest pain on the right side chest x-ray did not show any pneumonia facet of troponin is negative EKG is not available at this time but will be obtained. 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 Patient denied headache or any visual problems, retro-orbital pain REVIEW OF SYSTEMS: CONSTITUTIONAL: No fever, no malaise, no fatigue. HEENT: No recent visual problems or hearing problems. Denied any sore throat. CARDIOVASCULAR: No chest pain, orthopnea, PND, no palpitations, no syncope. PULMONARY: No shortness of breath, no cough, no hemoptysis. GASTROINTESTINAL: No diarrhea, no nausea, no vomiting, no abdominal pain. NEUROLOGICAL: No headaches. HEMATOLOGICAL: Denies any bleeding or petechiae. GENITOURINARY: Denies any burning micturition, frequency, or urgency. MUSCULOSKELETAL/RHEUMATOLOGICAL: Denies any joint pain, swelling, or any muscle pain. ENDOCRINE: Denies any polyuria or polydipsia. The rest of the 14-point review of systems is negative. PHYSICAL EXAMINATION: GENERAL: The patient is alert and oriented x3, not in any acute distress. Well developed, well nourished. HEENT: Pupils are round and equally reacting to light. EOMI. No scleral icterus. No conjunctival pallor. Normocephalic, atraumatic. No pharyngeal erythema. No thyromegaly. CARDIOVASCULAR: S1 and S2 present. No murmurs, rubs, or gallops. PULMONARY: Chest is clear to auscultation, no wheezing or crackles. ABDOMEN: Soft, nontender, nondistended, normoactive bowel sounds. No palpable organomegaly. MUSCULOSKELETAL: No joint swelling or deformity. EXTREMITIES: No cyanosis, clubbing, or pedal edema. NEUROLOGICAL: 2/5 strength in the left upper extremity along with tingling numbness and 4+/5 strength in the left lower extremity. SKIN: No rashes. Assessment and plan -Left arm weakness along with right-sided facial numbness, left hand numbness and mild weakness in the left leg: Patient need to be worked up for stroke probably will need an MRI, neurology will be consulted lipase panel echocardiogram will be obtained patient was started on aspirin and statin. The other differential being multiple sclerosis. -Pleuritic chest pain we'll obtain a d-dimer if that's positive patient will need CT angios the chest rule out any pulmonary embolism patient denied any leg pain. -Chronic back pain -Nicotine use but doesn't smoke cigarettes DVT prophylaxis: Early ambulation Past Medical History Past Medical History: Cancer, GERD/Reflux, Seizure Disorder Additional Past Medical History / Comment(s): cervical cancer. History of Any Multi-Drug Resistant Organisms: None Reported Past Surgical History: Orthopedic Surgery, Uterine Ablation Additional Past Surgical History / Comment(s): colonoscopy, EGD. cyst removal on uterus and neck surgery. Past Psychological History: Anxiety, Depression Smoking Status: Vaper Past Alcohol Use History: Occasional Past Drug Use History: Marijuana Medications and Allergies Home Medications Medication Instructions Recorded Confirmed Type Cetirizine HCl [Zyrtec] 10 mg PO DAILY 09/23/20 11/14/20 History Famotidine [Pepcid] 10 mg PO DAILY 11/14/20 11/14/20 History Folic Acid 1 mg PO DAILY 11/14/20 11/14/20 History Allergies Allergy/AdvReac Type Severity Reaction Status Date / Time iron Allergy Nausea & Verified 12/14/22 13:58 Vomiting & Diarrhea morphine Allergy Swelling Verified 12/14/22 13:58 phenytoin [From Dilantin] AdvReac Rash/Hives Verified 12/14/22 13:58 Sulfa (Sulfonamide AdvReac Rash/Hives Verified 12/14/22 13:58 Antibiotics) Physical Exam Vitals: Vital Signs Temp Pulse Resp BP Pulse Ox 12/14/22 16:30 57 L 18 130/89 99 12/14/22 15:30 18 131/85 99 12/14/22 15:00 65 127/88 99 12/14/22 14:30 94 130/96 98 12/14/22 13:53 98.1 F 63 18 160/81 100 Intake and Output 12/14/22 12/14/22 12/14/22 06:59 14:59 22:59 Other: Weight 54.431 kg Results CBC & Chem 7: 12/14/22 14:25 12/14/22 14:25 Labs: Abnormal Lab Results - Last 24 Hours (Table) 12/14/22 Range/Units 14:25 Carbon Dioxide 21 L (22-30) mmol/L Glucose 103 H (74-99) mg/dL
[2022-12-14] MEDS ORDERED: DEXAMETHASONE SOD PHOSPHATE 4 MG/ML 1 ML VIAL IVP STA (17:11)
[2022-12-14] MEDS: FAMOTIDINE 20 MG TAB PO SCH (17:35)
[2022-12-14] MEDS: ATORVASTATIN 40 MG TAB PO SCH (19:44)
[2022-12-14] MEDS: NICOTINE 21MG/24HR PATCH TRANSDERM SCH (19:44)
[2022-12-14 20:02] LABS: Glucose,Whole Blood 122 mg/dL (70-110)
[2022-12-14 20:04] LABS: T4, Free (Free Thyroxine) 0.72 ng/dL (0.78-2.19)
[2022-12-14] MEDS: KETOROLAC 15 MG/ML 1 ML VIAL IVP PRN (21:13)
[2022-12-14] MEDS: lamoTRIgine 25 MG TAB PO SCH (21:15)
[2022-12-14] MEDS ORDERED: ASPIRIN 81 MG PO ONE (22:46)
[2022-12-14] MEDS: HYDROcodone/APAP 5-325MG 1 EACH TAB PO PRN (22:54)
[2022-12-15] MEDS: HYDROcodone/APAP 5-325MG 1 EACH TAB PO PRN ×4 (05:30→22:27)
[2022-12-15] MEDS ORDERED: INFLUENZA VACC (6 MOS-64 YRS) 60 MCG/0.5 ML SYRINGE IM ONE (05:39)
[2022-12-15] MEDS: ASPIRIN 325 MG TAB PO SCH (07:39)
[2022-12-15] MEDS: FAMOTIDINE 20 MG TAB PO SCH ×2 (07:39→20:22)
[2022-12-15] MEDS: NICOTINE 21MG/24HR PATCH TRANSDERM SCH (07:39)
[2022-12-15] MEDS ORDERED: LORazepam 0.5 MG TAB PO STA (07:42)
[2022-12-15] MEDS: CHOLECALCIFEROL 25 MCG (1000 IU) TABLET PO SCH (07:45)
[2022-12-15] MEDS: DESVENLAFAXINE SUCCINATE 50 MG TAB.ER.24H PO SCH (08:22)
[2022-12-15] MEDS ORDERED: ATORVASTATIN 40 MG TAB PO SCH (09:00)
[2022-12-15 11:28] LABS: Glucose,Whole Blood 116 mg/dL (70-110)
--- NOTE | 2022-12-15 11:31 | MR ---
EXAMINATION TYPE: MR brain wo/w con DATE OF EXAM: 12/15/2022 10:56 AM CLINICAL INDICATION:Female, 37 years old with history of Left sided weakness; COMPARISON: 12/14/2022 TECHNIQUE: Multi planar, multi sequence imaging was performed through the brain including: T1, T2, In version recovery, susceptibility weighted imaging and gradient echo imaging and Diffusion weighted im aging. The patient was then given intravenous contrast and multi planar, T1 fat-saturation images wer e obtained. IV Contrast: 5.5 cc Gadavist FINDINGS: The crespo-white junctions, ventricular system, basal cisterns appear unremarkable. Diffusion-weighted imaging shows no evidence of restricted diffusion to suggest acute/subacute infarct. Intracranial art erial flow voids are maintained. Midline structures show no abnormality. The susceptibility weighted images do not reveal any evidence for micro-hemorrhage. After administration of gadolinium, no abnorm al enhancement is seen. The bone marrow signal is within normal limits. Paranasal sinuses and mastoid air cells: No significant paranasal sinus disease. Visualized orbits: Orbital contents are intact. IMPRESSION: No evidence of intracranial mass, acute/subacute infarct, or abnormal enhancement.
--- NOTE | 2022-12-15 12:08 | CA ---
Transthoracic Echo Report Name: Carol Tony Age: 37 Gender: F : 1985 Exam Date: 12/15/2022 07:35 Exam Location: [place] [facility] Ht (in): 64 Wt (lb): 120 Ordering Physician: Johann Reyes MD Attending/Referring Phys: Facilities Custodian Silver Harris Procedure CPT: Indications: stroke Cardiac Hx: Technical Quality: Fair Contrast 1: Agitated Saline Total Dose (mL): 10 Contrast 2: Total Dose (mL): MEASUREMENTS (Male / Female) Normal Values 2D ECHO LV Diastolic Diameter PLAX 3.3 cm 4.2 - 5.9 / 3.9 - 5.3 cm LV Systolic Diameter PLAX 2.4 cm IVS Diastolic Thickness 1.0 cm 0.6 - 1.0 / 0.6 - 0.9 cm LVPW Diastolic Thickness 0.9 cm 0.6 - 1.0 / 0.6 - 0.9 cm LV Relative Wall Thickness 0.6 RV Internal Dim ED PLAX 2.5 cm LVOT Diameter 1.8 cm Aortic Root Diameter 2.5 cm LA Systolic Diameter LX 2.5 cm 3.0 - 4.0 / 2.7 - 3.8 cm LV Diastolic Volume MOD BP 46.8 cm??? 67 - 155 / 56 - 104 cm??? LV Systolic Volume MOD BP 15.8 cm??? 22 - 58 / 19 - 49 cm??? LV Ejection Fraction MOD BP 66.3 % >= 55 % LV Cardiac Index MOD BP 1287.7 cm???/min???m??? LV Diastolic Volume MOD 4C 46.0 cm??? LV Systolic Volume MOD 4C 13.9 cm??? LV Ejection Fraction MOD 4C 69.9 % LV Cardiac Index MOD 4C 1334.0 cm???/min???m??? LV Diastolic Length 4C 7.3 cm LV Systolic Length 4C 5.8 cm LV Diastolic Volume MOD 2C 45.3 cm??? LV Systolic Volume MOD 2C 17.1 cm??? LV Ejection Fraction MOD 2C 62.3 % LV Cardiac Index MOD 2C 1170.9 cm???/min???m??? LV Diastolic Length 2C 6.9 cm LV Systolic Length 2C 5.5 cm LA Volume 29.2 cm??? 18 - 58 / 22 - 52 cm??? LA Volume Index 18.6 cm???/m??? 16 - 28 cm???/m??? Ascending Aorta Diameter 2.4 cm DOPPLER AV Peak Velocity 110.5 cm/s AV Peak Gradient 4.9 mmHg MV Peak Velocity 97.8 cm/s MV Peak Gradient 3.8 mmHg MV Mean Velocity 47.4 cm/s MV Mean Gradient 1.2 mmHg MV Velocity Time Integral 30.7 cm Mitral E Point Velocity 67.5 cm/s Mitral A Point Velocity 43.8 cm/s Mitral E to A Ratio 1.5 MV Deceleration Time 203.8 ms MV E' Velocity 11.5 cm/s Mitral E to MV E' Ratio 5.9 FINDINGS Left Ventricle Normal LV size and wall thickness. Right Ventricle Normal right ventricular size. Right Atrium Normal right atrial size. Left Atrium Normal left atrial size. Mitral Valve Structurally normal mitral valve. No mitral stenosis, regurgitation or prolapse. Aortic Valve Trileaflet aortic valve. No aortic valve stenosis or regurgitation. Tricuspid Valve Structurally normal tricuspid valve. Trace TR. Pulmonic Valve Pulmonic valve not well visualized.no pulmonic regurgitation. Pericardium Normal pericardium. Aorta Normal size aortic root and proximal ascending aorta. CONCLUSIONS Negative agitated saline study. Normal LV function Consider transesophageal echo to definitively rule out cardiac source for thromboembolic CVA Previewed by: Dr. Aj Almazan MD (Electronically Signed) Final Date: 15 December 2022 12:07
--- NOTE | 2022-12-15 12:41 | P.PN ---
Subjective Progress Note Date: 12/15/22 Patient is a pleasant 37-year-old the female with family history of for premature coronary artery disease and strokes, personal history of arrhythmia, not atrial fibrillation came to emergency department complaints of right-sided tingling numbness in the V2 V3 territory along with weakness in the left arm and difficulty ambulating. Patient had a CT angiography of the head didn't along with pain CT which is within normal limits. Patient is scheduled for an outpatient stress test tomorrow. Patient is also pending a pleuritic chest pain on the right side chest x-ray did not show any pneumonia facet of troponin is negative EKG is not available at this time but will be obtained. 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 Patient denied headache or any visual problems, retro-orbital pain 12/15/2022 Patient is evaluated today and today in the room she continues with gait dysfunction. Patient's left upper extremity is flaccid she does have a slight numbing feeling in her left hand which did not feel yesterday. She continues with bilateral lower extremity weakness worse in the left leg also. Did note some slurred speech yesterday also. Has a strong family history of stroke. Patient reports being evaluated by cardiology outpatient had an episode a few weeks ago where she feel to her knees with crushing chest pain but did not come in for evaluation. TSH 0.447 and T4 0.72 will recommend to repeat these outpatient. Troponin normal. A1C normal 5.9. Blood pressure is slightly elevated today 143/96. Neurology following closely. Brain MRI and Echocardiogram are pending. Review of Systems Constitutional: Denied any fatigue denied any fever. Cardio vascular: denied any chest pain, palpitations Gastrointestinal: denied any nausea, vomiting, diarrhea Pulmonary: Denied any shortness of breath cough Neurologic: Reports left upper extrem. weakness and bilateral LE weakness worse on the left and left hand numb/tingling. All inpatient medications were reviewed and appropriate changes in these medications as dictated in the interval history and assessment and plan. PHYSICAL EXAMINATION: GENERAL: The patient is alert and oriented x3, not in any acute distress. Well developed, well nourished. HEENT: Pupils are round and equally reacting to light. EOMI. No scleral icterus. No conjunctival pallor. Normocephalic, atraumatic. No pharyngeal erythema. No thyromegaly. CARDIOVASCULAR: S1 and S2 present. No murmurs, rubs, or gallops. PULMONARY: Chest is clear to auscultation, no wheezing or crackles. ABDOMEN: Soft, nontender, nondistended, normoactive bowel sounds. No palpable organomegaly. MUSCULOSKELETAL: No joint swelling or deformity. EXTREMITIES: No cyanosis, clubbing, or pedal edema. NEUROLOGICAL: 0/5 strength in the left upper extremity along with tingling numbness and 3+/5 strength in the left lower extremity. 4+/5 in the right lower ext. 5+/5 right upper extremity. SKIN: No rashes. Assessment and plan -Left arm flaccid, left hand numbness and bilateral lower extremity weakness. Right facial numbness. Rule out acute stroke. The other differential being multiple sclerosis. Pending brain MRI today, echocardiogram pending. Neurology consulted. -Other differential for left arm weakness is cervical radiculopathy. Patient had an MRI of the cervical spine late last year which showed cervical vertebral degenerative disc disease with foraminal encroachment. Patient sees anesthesia services outpatient -Pleuritic chest pain has resolved and D-Dimer is found to be negative. -Chronic back pain -Nicotine use but doesn't smoke cigarettes DVT prophylaxis: Early ambulation GI prophylaxis Pepcid Full Code Plan Pending MRI and echocardiogram Neurology is following this patient closely Continue with aspirin and statin therapy Repeat TSH/T4 outpatient once discharge. PT/OT and speech therapy consultations in place. The impression and plan of care has been dictated by Liz Sauceda Nurse Practitioner as directed. Dr. Eric MD I have performed a history and physical examination and medical decision making of this patient, discussed the same with the dictator, and agree with the dictators assessment and plan as written, documented as a scribe. Based on total visit time, I have performed more than 50% of this visit. Objective - Vital Signs Vital signs: Vital Signs Temp 97.7 F 12/15/22 03:16 Pulse 60 12/15/22 03:16 Resp 18 12/15/22 03:16 BP 136/83 12/15/22 03:16 Pulse Ox 99 12/15/22 03:16 FiO2 Intake & Output 12/14/22 12/15/22 12/15/22 18:59 06:59 18:59 Weight 54.431 kg 54.431 kg Other: Voiding Method Toilet # Voids 2 - Labs CBC & Chem 7: 12/14/22 14:25 12/14/22 14:25 Labs: Abnormal Lab Results - Last 24 Hours (Table) 12/14/22 12/14/22 12/14/22 Range/Units 08:20 14:25 19:57 Carbon Dioxide 21 L (22-30) mmol/L Glucose 103 H (74-99) mg/dL POC Glucose (mg/dL) 122 H (70-110) mg/dL TSH 0.447 L (0.465-4.680) mIU/L Free T4 0.72 L (0.78-2.19) ng/dL Assessment and Plan Time with Patient: Less than 30
--- NOTE | 2022-12-15 13:11 | P.CNNES ---
History of Present Illness Consult date: 12/15/22 Requesting physician: Johann Reyes Reason for Consult: Possible stroke History of Present Illness: Patient is a 37-year-old right-handed female, otherwise healthy came to the hospital yesterday at 1:51 PM for strokelike symptoms. Patient states that she went to sleep the night prior perfectly fine. Yesterday morning she woke up at 6 AM, not feeling well, with a headache, chest was hurting and the right side of the face was tingling. She went to sleep again, and when she woke up at 9 AM, her left arm was weak, left leg was weaker, trouble walking. Her face was droopy, blurred vision, so speech difficulty, not talking right, and the face was limp. She waited for a while, but then decided to come to the hospital. Vital signs arrival blood pressure 160/81, pulse rate 63 temperature 98.1. Blood test shows normal CBC PT/PTT, normal CMP, troponin, CK. EKG shows sinus rhythm with short [place] interval. Chest x-ray showed no acute cardiopulmonary disease. Patient had an MRI of cervical spine 01/07/2022 performed for pain and numbness in the left and right arms and fingers for one year, which revealed multilevel degenerative disc disease and foraminal encroachment. I personally reviewed MRI, I agree with the findings. No evidence of MANAGEMENT CONSULTING demyelination noted. Patient had a previously normal CT of abdomen and pelvis. There is broad-based disc herniation at L4-L5 contributing to mild spinal canal narrowing. Patient was not a candidate for TPA, as she has been having symptoms for greater than 4.5 hours prior to arrival. There was no large vessel occlusion noted on the CTA. Patient says that her speech cleared up by 11 PM. She continues to have left hemiparesis, mainly involving the arm and leg. Patient states both legs are affected, but the left much more. She still getting some chest pain. She cannot hold her left arm up, and she using her right arm to lift it up. 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 She can lift her leg, but both legs are weak, and she walks very wobbly. Patient says that she is getting some headache on the right side and gets blurred vision. Patient states that about a month ago, she started having some chest pain, and she fell to the knees and couldn't breathe also had blurred vision. She stayed on the floor for 15 minutes. She started crying. Her told her to go to the ER, but she declined to go to the hospital. Patient states that she is under a lot of stress because of her 2 daughters were 18 years of age. Patient states that she was incarcerated in [place] from 2006 and she was released on 10/21/2019. Her daughters were taken off custody while she was incarcerated. Now that the doctors are 18 years old, patient has been able to see her daughters although still a lot of stress. She also has a 2-year-old son. She admits to being under a lot of stress. She admits to having previous history of bipolar disorder, anxiety and depression. Patient denies hypertension or diabetes. She vapes off and on for last 2 years. One vape lasts about 2-3 weeks. Patient states that she smoked half pack per day for 10 years, before she went to retirement. Drinks alcohol very occasionally. She does smoke marijuana. Patient states she has history of seizures and migraines when she was a child. She has not had any seizure in the last 14 y ears, and is currently on no medication for seizures. She still gets migraines, that comes and goes. Her mother has bad migraines. Home medications include Desvenlafaxine 50 mg daily, Lamictal 25 mg at bedtime, vitamin D3 50 g or 1000 international units, clonazepam 0.25 mg daily, Pepcid 20 mg at bedtime. Review of Systems Constitutional: Reports sweats, Reports weight loss, Denies chills, Denies fever Eyes: bilateral blurred vision (Transient today, spots), denies diplopia, denies pain Ears: deny: decreased hearing, ear discharge Ears, nose, mouth and throat: Reports headache, Denies epistaxis, Denies sore throat Cardiovascular: Reports chest pain, Reports shortness of breath Respiratory: Reports cough, Denies excessive sputum Gastrointestinal: Denies abdominal pain, Denies diarrhea, Denies nausea, Denies vomiting Genitourinary: Denies dysuria, Denies hematuria, Denies urge incontinence Musculoskeletal: Reports low back pain, Denies myalgias, Denies neck pain Integumentary: Denies pruritus, Denies rash Neurological: Reports as per HPI Psychiatric: Reports anxiety, Reports depression Endocrine: Reports fatigue, Reports weight change Hematologic/Lymphatic: Reports easy bleeding, Reports easy bruising Past Medical History Past Medical History: Cancer, GERD/Reflux, Seizure Disorder Additional Past Medical History / Comment(s): cervical cancer. History of Any Multi-Drug Resistant Organisms: None Reported Past Surgical History: Orthopedic Surgery, Uterine Ablation Additional Past Surgical History / Comment(s): colonoscopy, EGD. cyst removal on uterus and neck surgery, LEEP Past Psychological History: Anxiety, Depression Smoking Status: Vaper Past Alcohol Use History: Occasional Past Drug Use History: Marijuana Medications and Allergies Home Medications Medication Instructions Recorded Confirmed Type Cholecalciferol [Vitamin D3 (25 50 mcg PO DAILY 12/14/22 12/14/22 History Mcg = 1000 Iu)] Desvenlafaxine Succinate [Pristiq 50 mg PO DAILY 12/14/22 12/14/22 History ER] EPINEPHrine (Auto Inject) [Epipen] 0.3 mg IM ONCE PRN 12/14/22 12/14/22 History Famotidine [Pepcid] 20 mg PO HS 12/14/22 12/14/22 History clonazePAM [KlonoPIN] 0.25 mg PO DAILY PRN 12/14/22 12/14/22 History lamoTRIgine [LaMICtal] 25 mg PO HS 12/14/22 12/14/22 History Allergies Allergy/AdvReac Type Severity Reaction Status Date / Time phenytoin [From Dilantin] Allergy Rash/Hives Verified 12/14/22 17:49 Sulfa (Sulfonamide Allergy Rash/Hives Verified 12/14/22 17:49 Antibiotics) iron AdvReac Nausea & Verified 12/14/22 17:49 Vomiting & Diarrhea morphine AdvReac Swelling Verified 12/14/22 17:49 Physical Examination - Vital Signs Vital Signs: Vital Signs Temp Pulse Pulse Resp BP BP Pulse Ox 12/15/22 08:00 98.1 F 64 16 136/91 99 12/15/22 03:16 97.7 F 60 18 136/83 99 12/14/22 23:18 97.7 F 59 L 16 134/83 98 12/14/22 19:33 98.6 F 67 16 147/85 99 12/14/22 16:30 57 L 18 130/89 99 12/14/22 15:30 18 131/85 99 12/14/22 15:00 65 127/88 99 12/14/22 14:30 94 130/96 98 12/14/22 13:53 98.1 F 63 18 160/81 100 Intake and Output 12/14/22 12/15/22 12/15/22 22:59 06:59 14:59 Intake Total 590 Balance 590 Intake: Oral 590 Other: Voiding Method Toilet Toilet Toilet # Voids 1 2 1 Weight 54.431 kg Patient is a young female, very pleasant, in no acute distress. Patient is alert awake oriented to time place and person. Speech and language functions are normal. Patient can name and repeat very well. No aphasia or dysarthria. Attention, concentration and fund of knowledge is adequate. Patient appears to be very pleasant, appears to have "[place] indifference" to her left-sided weakness. She states that she feels paralyzed in her left arm. She wants to make sure that she stays in the hospital for 2 days. On cranial nerve examination, pupils are equal, round and reacting to light, visual monzon are full on confrontation, with no neglect on double simultaneous stimulation. Extraocular muscles are intact with no nystagmus. Face is symmetric, tongue protrudes to the midline. Palatal elevation and sensation normal, hearing and shoulder shrug normal, facial sensation produces tingling sensation in the left jaw region. On muscle strength testing, patient is completely paralyzed in the left arm distally and proximally. The right upper limb is normal. Patient is holding her left arm in a "paralyzed position". Her left hand is in the laser beam trim operator. Cannot squeeze the hand, or extend the fingers. In the lower limbs, patient had about 4+5-strength in the right lower extremity, whereas 2-3 in the left lower extremity. She would obviously give way while being tested. Deep tendon reflexes are symmetric 1 at the biceps, trace brachioradialis, 2 at the knees, 1 ankles and plantars are flat bilaterally. Sensory to touch revealed tingling sensation in the left lower facial region as compared to the right. In the upper extremities left arm is numb and tingling. In the lower limbs, the left leg feels "different". Cerebellar function showed no ataxia for [id number] testing on the right, cannot perform on the left. No dysdiadochokinesia on the right. No ataxia for clch-dd-onik testing on the right side, cannot perform with the left. Tone appears patient holding the left arm stiff and bulk of muscles normal. Gait deferred.. On general examination, there is no carotid bruit or murmur, S1-S2 audible. Chest is clear on consultation. Abdomen is soft nontender. No organomegaly, bowel sounds present. Peripheral pulses are present. No edema. Results - Laboratory Findings CBC and BMP: 12/14/22 14:25 12/14/22 14:25 Abnormal Lab Findings: Abnormal Labs 12/14/22 12/14/22 12/14/22 08:20 14:25 19:57 Carbon Dioxide 21 L Glucose 103 H POC Glucose (mg/dL) 122 H TSH 0.447 L Free T4 0.72 L Assessment and Plan Assessment: * Acute onset of left hemiparesis, left-sided numbness, speech difficulty and blurred vision. The speech difficulty and blurred vision has resolved. She continues to have left hemiparesis involving the left arm and left leg. MRI of the brain negative for any acute stroke, or demyelinating disease. I suspect conversion disorder. Patient does have secondary gains. * Multiple stresses. * History of bipolar disorder, anxiety depression Plan: * MRI of the brain with and without contrast was done, which was normal. No abnormal enhancement, no demyelination, no acute or subacute or chronic stroke. * CTA of head and neck is normal, with no significant stenosis or aneurysm. * Hemoglobin A1c 5.7 * Lipid panel with cholesterol 179, LDL 102, HDL 62 and triglycerides 70 on 05/14/2021. * B12 283, we will start B12 replacement * TSH is low 0.447, and free also low T4 0.72. IM to address abnormal thyroid functions. * 2-D echo revealed normal left ventricular wall and thickness. Left atrial size is normal. Negative bubble study. No embolic source. * Continue aspirin 81 mg daily. * Urine drug screen. * PT OT * Telemetry monitoring so far showing sinus rhythm, PVCs with some bigeminy and trigeminy. No other arrhythmia. * Suggest psychiatric consultation for possible multiple stressors, possible conversion disorder. * Neurologically patient will be clear. Thank you for the consult.
--- NOTE | 2022-12-15 13:21 | XR ---
EXAMINATION TYPE: XR cervical spine comp DATE OF EXAM: 12/15/2022 1:07 PM INDICATION: Patient age:Female; 37 years old; Reason for study: left upper ext. weakness; PHH. COMPARISON: MR cervical spine 01/07/2022 TECHNIQUE: The cervical spine was imaged in 4 projections. Frontal, lateral, odontoid and bilateral o blique. FINDINGS: The osseous structures show normal alignment without evidence of an acute fracture. There are osteoph ytes noted throughout the cervical spine on the anterior and lateral aspects of the vertebral bodies. Multilevel disc space narrowing with endplate sclerosis at C4-C7. Pedicles are intact. Soft tissues are within normal limits. The odontoid appears intact. IMPRESSION: 1. No fracture or dislocation. 2. Mild to moderate degenerative disc disease changes of the cervical spine from C4 to C7.
[2022-12-15 13:49] LABS: Chol/HDL Ratio 2.53 Ratio; VLDL Calculation 14.18 mg/dL (5.00-40.00)
[2022-12-15 14:07] LABS: Cocaine Screen,Urine Detected (NotDetected); Phencyclidine Screen,Urine Not Detected (NotDetected); Urn Cannabinoid Scrn Detected (NotDetected)
[2022-12-15 14:08] LABS: Amphetamine Screen,Urine Not Detected (NotDetected); Barbiturate Screen,Urine Not Detected (NotDetected); Benzodiazepines Screen,Urine Detected (NotDetected); Methadone Screen, Urine Not Detected (NotDetected); Opiate Screen,Urine Detected (NotDetected); Oxycodone Screen, Urine Not Detected (NotDetected); Tricyclic Antidepressant,Urine Not Detected (NotDetected)
[2022-12-15 16:16] LABS: Glucose,Whole Blood 86 mg/dL (70-110)
[2022-12-15 16:38] LABS: Glucose,Whole Blood 122 mg/dL (70-110)
[2022-12-15] MEDS: KETOROLAC 15 MG/ML 1 ML VIAL IVP PRN (18:36)
[2022-12-15 19:51] LABS: Glucose,Whole Blood 86 mg/dL (70-110)
[2022-12-15] MEDS: lamoTRIgine 25 MG TAB PO SCH (20:22)
[2022-12-15] MEDS: ATORVASTATIN 40 MG TAB PO SCH (20:22)
[2022-12-15] MEDS: clonazePAM 0.5 MG TAB PO PRN (20:23)
[2022-12-15] MEDS ORDERED: lamoTRIgine 25 MG TAB PO SCH (21:00)
[2022-12-16] MEDS: KETOROLAC 15 MG/ML 1 ML VIAL IVP PRN ×3 (00:52→22:09)
[2022-12-16] MEDS: HYDROcodone/APAP 5-325MG 1 EACH TAB PO PRN ×3 (05:01→20:37)
[2022-12-16] MEDS: ASPIRIN 325 MG TAB PO SCH (09:39)
[2022-12-16] MEDS: DESVENLAFAXINE SUCCINATE 50 MG TAB.ER.24H PO SCH (09:39)
[2022-12-16] MEDS: NICOTINE 21MG/24HR PATCH TRANSDERM SCH (09:39)
[2022-12-16] MEDS: FAMOTIDINE 20 MG TAB PO SCH ×2 (09:41→20:36)
[2022-12-16] MEDS: CHOLECALCIFEROL 25 MCG (1000 IU) TABLET PO SCH (09:45)
[2022-12-16] MEDS ORDERED: LORazepam 2 MG/ML INJ IV ONE (10:51)
--- NOTE | 2022-12-16 14:51 | P.PN ---
Subjective Progress Note Date: 12/16/22 Patient is a pleasant 37-year-old the female with family history of for premature coronary artery disease and strokes, personal history of arrhythmia, not atrial fibrillation came to emergency department complaints of right-sided tingling numbness in the V2 V3 territory along with weakness in the left arm and difficulty ambulating. Patient had a CT angiography of the head didn't along with pain CT which is within normal limits. Patient is scheduled for an outpatient stress test tomorrow. Patient is also pending a pleuritic chest pain on the right side chest x-ray did not show any pneumonia facet of troponin is negative EKG is not available at this time but will be obtained. 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 Patient denied headache or any visual problems, retro-orbital pain 12/15/2022 Patient is evaluated today and today in the room she continues with gait dysfunction. Patient's left upper extremity is flaccid she does have a slight numbing feeling in her left hand which did not feel yesterday. She continues with bilateral lower extremity weakness worse in the left leg also. Did note some slurred speech yesterday also. Has a strong family history of stroke. Patient reports being evaluated by cardiology outpatient had an episode a few weeks ago where she feel to her knees with crushing chest pain but did not come in for evaluation. TSH 0.447 and T4 0.72 will recommend to repeat these outpatient. Troponin normal. A1C normal 5.9. Blood pressure is slightly elevated today 143/96. Neurology following closely. Brain MRI and Echocardiogram are pending. 12/16/2022 Patient is evaluated today sitting up in bed. Continues with left upper extremity weakness and also bilateral lower extremity weakness. Patient underwent MRI which reveals no evidence of intracranial mass or acute/subacute infarct or abnormal enhancement. Echocardiogram reveals negative bubble study, normal LV function, and to consider JAYLEN to definitively rule out cardiac source for thromboembolic CVA. Cervical spine xray shows no fracture or dislocation, mi ld to moderate degenerative disc disease changes of the cervical spine from C4 to C7. EKG showing sinus rhythm with short [place] interval. 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 Patient was given IV ativan. Would recommend to see psychiatry while inpatient. She does see [facility] outpatient. Urine drug toxicology showing opiates, benzodiazepines, cocaine and marijuana. Patient denies cocaine use. Review of Systems Constitutional: Denied any fatigue denied any fever. Cardio vascular: denied any chest pain, palpitations Gastrointestinal: denied any nausea, vomiting, diarrhea Pulmonary: Denied any shortness of breath cough Neurologic: Reports left upper extrem. weakness and bilateral LE weakness worse on the left and left hand numb/tingling. All inpatient medications were reviewed and appropriate changes in these medications as dictated in the interval history and assessment and plan. PHYSICAL EXAMINATION: GENERAL: The patient is alert and oriented x3, not in any acute distress. Well developed, well nourished. HEENT: Pupils are round and equally reacting to light. EOMI. No scleral icterus. No conjunctival pallor. Normocephalic, atraumatic. No pharyngeal erythema. No thyromegaly. CARDIOVASCULAR: S1 and S2 present. No murmurs, rubs, or gallops. PULMONARY: Chest is clear to auscultation, no wheezing or crackles. ABDOMEN: Soft, nontender, nondistended, normoactive bowel sounds. No palpable organomegaly. MUSCULOSKELETAL: No joint swelling or deformity. EXTREMITIES: No cyanosis, clubbing, or pedal edema. NEUROLOGICAL: 0/5 strength in the left upper extremity along with tingling numbness and 3+/5 strength in the left lower extremity. 4+/5 in the right lower ext. 5+/5 right upper extremity. SKIN: No rashes. Assessment and plan -Left arm flaccid, left hand numbness and bilateral lower extremity weakness. Right facial numbness. MRI done negative for stroke, No demyelination noted. Symptoms are possibly psychlogical in nature, with increased life stressors. -Other differential for left arm weakness is cervical radiculopathy. Patient had an MRI of the cervical spine late last year which showed cervical vertebral degenerative disc disease with foraminal encroachment. Patient sees anesthesia services outpatient. Xray shows mild to moderate degenerative changes. -Pleuritic chest pain has resolved and D-Dimer is found to be negative. -Chronic back pain -Nicotine use but doesn't smoke cigarettes -Polysubstance use drug tox positive for marijuana and cocaine, pt denies cocaine use. DVT prophylaxis: Early ambulation GI prophylaxis Pepcid Full Code Plan Neurology is following this patient closely Continue with aspirin and statin therapy Psychiatry has been consulted Repeat TSH/T4 outpatient once discharge. PT/OT and speech therapy consultations in place Continue to monitor patient overnight. The impression and plan of care has been dictated by Liz aSuceda Nurse Practitioner as directed. Dr. Eric MD I have performed a history and physical examination and medical decision making of this patient, discussed the same with the dictator, and agree with the dictators assessment and plan as written, documented as a scribe. Based on total visit time, I have performed more than 50% of this visit. Objective - Vital Signs Vital signs: Vital Signs Temp 98.1 F 12/16/22 08:00 Pulse 67 12/16/22 08:00 Resp 16 12/16/22 08:00 BP 109/72 12/16/22 08:00 Pulse Ox 99 12/16/22 08:00 FiO2 Intake & Output 12/15/22 12/16/22 12/16/22 18:59 06:59 18:59 Intake Total 1165 Balance 1165 Intake: Oral 1165 Other: Voiding Method Toilet Toilet Toilet # Voids 1 1 - Labs CBC & Chem 7: 12/14/22 14:25 12/14/22 14:25 Labs: Abnormal Lab Results - Last 24 Hours (Table) 12/15/22 12/15/22 12/15/22 Range/Units 06:01 07:10 13:43 POC Glucose (mg/dL) 122 H (70-110) mg/dL HDL Cholesterol 77.80 H (40.00-60.00) mg/dL Urine Opiates Screen Detected H (NotDetected) U Benzodiazepines Scrn Detected H (NotDetected) Urine Cocaine Screen Detected H (NotDetected) U Marijuana (THC) Screen Detected H (NotDetected) Assessment and Plan Time with Patient: Less than 30
[2022-12-16] MEDS ORDERED: LORazepam 0.5 MG TAB PO STA (20:24)
[2022-12-16] MEDS: ATORVASTATIN 40 MG TAB PO SCH (20:36)
[2022-12-16] MEDS: lamoTRIgine 25 MG TAB PO SCH (20:36)
[2022-12-16] MEDS: clonazePAM 0.5 MG TAB PO PRN (20:38)
[2022-12-17] MEDS: HYDROcodone/APAP 5-325MG 1 EACH TAB PO PRN ×3 (04:30→19:41)
[2022-12-17] MEDS: DESVENLAFAXINE SUCCINATE 50 MG TAB.ER.24H PO SCH (08:52)
[2022-12-17] MEDS: FAMOTIDINE 20 MG TAB PO SCH ×2 (08:52→18:34)
[2022-12-17] MEDS: NICOTINE 21MG/24HR PATCH TRANSDERM SCH (08:52)
[2022-12-17] MEDS: ASPIRIN 325 MG TAB PO SCH (08:52)
[2022-12-17] MEDS: CHOLECALCIFEROL 25 MCG (1000 IU) TABLET PO SCH (08:52)
[2022-12-17] MEDS: KETOROLAC 15 MG/ML 1 ML VIAL IVP PRN ×2 (09:00→18:28)
--- NOTE | 2022-12-17 10:26 | P.PN ---
Subjective Progress Note Date: 12/16/22 Patient was seen for a follow-up. Patient is laying comfortably in the bed. Patient's mother was also present today. Patient states that her legs feels weak, not able to move, she is using her right hand to move or lift her left upper limb. 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 Patient's mother was present. She states that patient is under huge amount of stress. Objective - Vital Signs Vital signs: Vital Signs Temp 97.7 F 12/16/22 12:00 Pulse 80 12/16/22 12:00 Resp 16 12/16/22 12:00 BP 169/116 12/16/22 12:00 Pulse Ox 99 12/16/22 12:00 FiO2 Intake & Output 12/15/22 12/16/22 12/16/22 18:59 06:59 18:59 Intake Total 1165 Balance 1165 Intake: Oral 1165 Other: Voiding Method Toilet Toilet Toilet # Voids 1 1 - Exam On examination patient is alert and awake in no distress. Speech and language functions are normal. Cranial nerves are normal. On muscle strength testing, patient not able to squeeze her left hand. She states that she can elevate her left elbow a little. Later on I saw her, moving her left arm involuntary somewhat normally. In the lower limbs, her hip flexion is 1-4-[id number]. She has giveaway weakness of ankle dorsiflexion to about [id number]. Later during the examination, I noticed that patient patient's left leg was over the covers. She lifted her left leg normally and put her legs under the cover without any difficulty. Patient has significant inconsistent response. Reflexes are symmetric 1 at the biceps, 1 brachioradialis, 2+ at the knees, 1+ at the ankles and plantars downgoing. Sensory touch is equal. No ataxia for [id number] testing. - Labs CBC & Chem 7: 12/14/22 14:25 12/14/22 14:25 Labs: Abnormal Lab Results - Last 24 Hours (Table) 12/15/22 Range/Units 06:01 POC Glucose (mg/dL) 122 H (70-110) mg/dL Assessment and Plan Assessment: * Conversion disorder. Patient has presented with acute left hemiparesis and bilateral lower extremity weakness. Although patient not able to move her left arm, but was noticed to move the left arm normally during routine conversation. Patient does have secondary gains. * Multiple stresses. * History of bipolar disorder, anxiety depression * Substance abuse Plan: * MRI of the brain with and without contrast was done, which was normal. No abnormal enhancement, no demyelination, no acute or subacute or chronic stroke. * CTA of head and neck is normal, with no significant stenosis or aneurysm. * Hemoglobin A1c 5.7 * Lipid panel with cholesterol 179, LDL 102, HDL 62 and triglycerides 70 on 05/14/2021. * B12 283, we will start B12 replacement * TSH is low 0.447, and free also low T4 0.72. IM to address abnormal thyroid functions. * 2-D echo revealed normal left ventricular wall and thickness. Left atrial size is normal. Negative bubble study. No embolic source. * Continue aspirin 81 mg daily. * Urine drug screen positive for opiate, benzodiazepine, cocaine and marijuana. Patient states that she was at her boyfriend's friend's house and there are 5 people passing around joints among them. She tried 5 different joints that day. Probably one of them was laced with cocaine. She states that she did not feel anything different while smoking the different joints. Patient strongly recommended to abstain from polysubstance abuse. * PT OT * Telemetry monitoring so far showing sinus rhythm, PVCs with some bigeminy and trigeminy. No other arrhythmia. * Recommend psychiatric consultation for possible multiple stressors, possible conversion disorder and panic attacks. * Neurologically clear for discharge.
--- NOTE | 2022-12-17 12:46 | P.PN ---
Subjective Progress Note Date: 12/17/22 37-year-old the female with family history of for premature coronary artery disease and strokes, personal history of arrhythmia, not atrial fibrillation came to emergency department complaints of right-sided tingling numbness in the V2 V3 territory along with weakness in the left arm and difficulty ambulating. Patient had a CT angiography of the head didn't along with pain CT which is within normal limits. Patient is scheduled for an outpatient stress test tomorrow. Patient is also pending a pleuritic chest pain on the right side chest x-ray did not show any pneumonia facet of troponin is negative EKG is not available at this time but will be obtained. 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 Patient denied headache or any visual problems, retro-orbital pain 12/15/2022 Patient is evaluated today and today in the room she continues with gait dysfunction. Patient's left upper extremity is flaccid she does have a slight numbing feeling in her left hand which did not feel yesterday. She continues with bilateral lower extremity weakness worse in the left leg also. Did note some slurred speech yesterday also. Has a strong family history of stroke. Patient reports being evaluated by cardiology outpatient had an episode a few weeks ago where she feel to her knees with crushing chest pain but did not come in for evaluation. TSH 0.447 and T4 0.72 will recommend to repeat these outpatient. Troponin normal. A1C normal 5.9. Blood pressure is slightly elevated today 143/96. Neurology following closely. Brain MRI and Echocardiogram are pending. 12/16/2022 Patient is evaluated today sitting up in bed. Continues with left upper extremity weakness and also bilateral lower extremity weakness. Patient underwent MRI which reveals no evidence of intracranial mass or acute/subacute infarct or abnormal enhancement. Echocardiogram reveals negative bubble study, normal LV function, and to consider JAYLEN to definitively rule out cardiac source for thromboembolic CVA. Cervical spine xray shows no fracture or dislocation, mild to moderate degenerative disc disease changes of the cervical spine from C4 to C7. EKG showing sinus rhythm with short MS interval. 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 Patient was given IV ativan. Would recommend to see psychiatry while inpatient. She does see [facility] outpatient. Urine drug toxicology showing opiates, benzodiazepines, cocaine and marijuana. Patient denies cocaine use. 12/17/22: Patient seen and evaluated bedside. Patient remains anxious. Patient was seen to be moving left upper extremity. Hence do not suspect CVA or myelopathy likely malingering. Seen by neurology as well and had cleared for discharge from neurological standpoint. Significant anxiety waiting for psychiatry evaluation Objective - Vital Signs Vital signs: Vital Signs Temp 97.8 F 12/17/22 08:41 Pulse 71 12/17/22 12:04 Resp 18 12/17/22 12:04 BP 130/86 12/17/22 12:04 Pulse Ox 95 12/17/22 12:04 FiO2 Intake & Output 12/16/22 12/17/22 12/17/22 18:59 06:59 18:59 Intake Total 118 100 490 Balance 118 100 490 Intake: IV 10 Invasive Line 1 10 Oral 118 100 480 Other: Voiding Method Toilet Toilet Toilet - Exam PHYSICAL EXAMINATION: GENERAL: The patient is alert and oriented x3 anxious, crying HEENT: Pupils are round and equally reacting to light. EOMI. CARDIOVASCULAR: S1 and S2 present. No murmurs, rubs, or gallops. PULMONARY: Chest is clear to auscultation, no wheezing or crackles. ABDOMEN: Soft, nontender, nondistended, normoactive bowel sounds. No palpable organomegaly. MUSCULOSKELETAL: No joint swelling or deformity. EXTREMITIES: No cyanosis, clubbing, or pedal edema. NEUROLOGICAL: Motor strength is 5 over 5 right upper and lower extremity, upon observation it was noted patient was able to keep left arm against gravity and strength at least 3 x 5, able to move left leg as well at least 10 to see by 5 - Labs CBC & Chem 7: 12/14/22 14:25 12/14/22 14:25 Assessment and Plan Assessment: Assessment and plan -Acute left-sided hemiparesis likely nonpathological >> Left arm flaccid, left hand numbness and bilateral lower extremity weakness. Right facial numbness. MRI done negative for stroke, No demyelination noted. Symptoms are possibly psychlogical in nature, with increased life stressors. -Severe anxiety and depression -Pleuritic chest pain has resolved and D-Dimer is found to be negative. -Chronic back pain -Nicotine use but doesn't smoke cigarettes -Polysubstance use drug tox positive for marijuana and cocaine, pt denies cocaine use. Plan * Consult obtained from neurology who has signed off, imaging review negative for any major etiology that could explain her left arm weakness. Patient was noted to be moving her left arm during bedside encounter * Significant anxiety, and depression. Psychiatry consulted * Continue with aspirin and statin therapy * PT/OT and speech therapy consultations in place
[2022-12-17] MEDS: LORazepam 0.5 MG TAB PO PRN ×2 (13:30→20:56)
[2022-12-17] MEDS ORDERED: DESVENLAFAXINE SUCCINATE 50 MG TAB.ER.24H PO ONE ×2 (14:35→16:00)
--- NOTE | 2022-12-17 14:48 | P.CN ---
Psychiatric Consult - . Consult date: 12/17/22 Consult:: 12/17/22 13:40 IDENTIFYING DATA: This patient is a []37-year-old female, she currently lives with her boyfriend in a trailer, she is unemployed. REASON FOR REFERRAL: Psychiatry was consulted for []"increased stress" HISTORY OF PRESENT ILLNESS: The patient presented to the hospital initially on 12/14 exhibiting right facial tingling and left hand/arm weakness. patient apparently was endorsing increased stress in her life. neurology has been following. apparently MRI and CTA was negative for any reason for the symptoms. Patients uds was positive for cocaine, thc, bzd and opiates. patient was seen today by policy writer and was agrreable to speak to policy writer. patient claims that she has been dealing with more stress lately in her life with her relationship with her boyfriend. 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 she states that at that time she lost custody of her two daughters and one . she states that her kids want "nothing to do with me and sending me very negative texts". she claims thath her anxiety is elevated., endorsing depression. she states that she beleives she may have bipolar disorder as she has mood swings and episodes of irritability. she states that she gets racing thoughts, poor sleep about 3-4 hrs of rest/night. denies any paranoia. appetite is fair. At this time patient denies any suicidal or homical ideations, intent or plan. Patient denies any auditory, visual hallucinations and denies any paranoia or delusions. Patients admits to using thc frequently to help her with sleep. smokes vape products, den eis any other rec drugs. PAST PSYCHIATRIC HISTORY: Patient has a a history of bipolar disorder. patient is currently on lamictal and pristiq. [Patient claims that she was admitted in the past to [facility] in [place] when she was younger.] [Patient denies any psychiatric outpatient follow-up and has been trying to get into [facility] in [facility] claims that she attempted suicide when she was a teenager by cutting and ODing on pills. Past Medical History: Cancer, GERD/Reflux, Seizure Disorder Additional Past Medical History / Comment(s): cervical cancer. History of Any Multi-Drug Resistant Organisms: None Reported Past Surgical History: Orthopedic Surgery, Uterine Ablation Additional Past Surgical History / Comment(s): colonoscopy, EGD. cyst removal on uterus and neck surgery. Past Psychological History: Anxiety, Depression Smoking Status: Vaper Past Alcohol Use History: Occasional Past Drug Use History: Marijuana ALLERGIES: as per EMR. CHEMICAL DEPENDENCY HISTORY: as per HPI. FAMILY PSYCHIATRIC/SUBSTANCE USE HISTORY: states that her grandma and mother have dep and anxiety SOCIAL HISTORY: Patient was born and raised in [place] then to [place] and then to [place]. she recently moved back to [place]. 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 claims she has 3 kids, lives with her son and her BF in a trailer. MENTAL STATUS EXAM: General Appearance: Patient appears to be thin, stated age is alert, pleasant, and cooperative. Patient appears to have [fair] hygiene and grooming wearing hospital gown with [fair] eye contact. Behavior: [Patient is calmly lying in bed without any agitated behavior.] Speech: Patient's speech is fluent and nonpressured. rambling at times, Mood/Affect: Patient reports their mood is "[depressed and anxious]", affect is congruent Suicidality/Homicidality: Patient denies having any suicidal or homicidal ideation intent or plan. Perceptions: Patient denies any visual hallucinations [and denies any auditory hallucinations] Though content/process: There is no evidence of any delusional thought content and thought process is linear and goal-directed. rambling, focused on medicat ions and stressors Memory and concentration: AOX3, grossly intact for the purposes of this session. Can spell "WORLD" backwards Judgment and insight: fair IMPRESSIONS: Bipolar disorder possible conversion disorder anxiety disorder NOS cannabis use disorder cocaine abuse nicotine dependence PLAN: -At this time patient DOES [NOT] meet criteria for inpatient psychiatric admission. -Would recommend the following medication changes/additions: can continue with ativan prn for anxiety, increased pristiq 75 mg daily for mood/anxiety, trazodone 50 mg qhs for insomnia/mood, lithobid 450 mg daily for mood stabilization. [-radio survey worker to provide patient with outpatient mental health/psychiatry resources for appropriate follow up upon discharge]. Patient wants to get connected to [facility], should have an appt in 1-2 weeks post discharge [-Coffin Maker spoke with patient about substance abuse and the harmful effects on medical and mental health, patient verbally understood and agreed.] [-radio survey worker to provide patient substance use treatment resources including AA/NA meetings in the community.] [-radio survey worker to provide patient with access line number to call for inpatient substance rehab] [-Communicated plan to patient's nurse and SW] [-Will continue to follow along] tomorrow and then likely sign off then. -Please contact with any questions. 12/17/22 14:36
[2022-12-17] MEDS: LITHIUM CARBONATE ER 450 MG TABLET.ER PO SCH (16:11)
[2022-12-17] MEDS: ATORVASTATIN 40 MG TAB PO SCH (18:33)
[2022-12-17] MEDS: traZODone HCL 50 MG TAB PO SCH (18:34)
--- NOTE | 2022-12-17 20:09 | P.PN ---
Subjective Progress Note Date: 12/17/22 Patient was seen for a follow-up. Patient is laying comfortably in the bed. Patient continues to have paralysis of the left upper limb and also some weakness of the lower limbs. Objective - Vital Signs Vital signs: Vital Signs Temp 97.8 F 12/17/22 08:41 Pulse 71 12/17/22 14:00 Resp 18 12/17/22 14:00 BP 130/86 12/17/22 12:04 Pulse Ox 95 12/17/22 12:04 FiO2 Intake & Output 12/16/22 12/17/22 12/17/22 18:59 06:59 18:59 Intake Total 118 100 790 Balance 118 100 790 Intake: IV 10 Invasive Line 1 10 Oral 118 100 780 Other: Voiding Method Toilet Toilet Toilet # Voids 1 - Exam On examination patient is alert and awake in no distress. Speech and language functions are normal. Cranial nerves are normal. On muscle strength testing, patient not able to squeeze her left hand. She states that she can elevate her left elbow in the left upper limb a little. Patient also weak in the lower limbs with giveaway weakness. Reflexes are symmetric 1 at the biceps, 1 brachioradialis, 2+ at the knees, 1+ at the ankles and plantars downgoing. Sensory touch is equal. No ataxia for [id number] testing with the right upper limb, patient not able to do with the left upper limb. Patient walked with my assist. She was putting a lot of weight on her right hand for support. She was walking with astasia abasia, with shaking and jerking of the legs, which was completely functional. - Labs CBC & Chem 7: 12/14/22 14:25 12/14/22 14:25 Assessment and Plan Assessment: * Conversion disorder. Patient has presented with acute left hemiparesis and bilateral lower extremity weakness. * Multiple stresses. * History of bipolar disorder, anxiety depression * Substance abuse Plan: * MRI of the brain with and without contrast was done, which was normal. No abnormal enhancement, no demyelination, no acute or subacute or chronic stroke. * CTA of head and neck is normal, with no significant stenosis or aneurysm. * Hemoglobin A1c 5.7 * Lipid panel with cholesterol 179, LDL 102, HDL 62 and triglycerides 70 on 05/14/2021. * B12 283, we will start B12 replacement * TSH is low 0.447, and free also low T4 0.72. IM to address abnormal thyroid functions. * 2-D echo revealed normal left ventricular wall and thickness. Left atrial size is normal. Negative bubble study. No embolic source. * Continue aspirin 81 mg daily. * Urine drug screen positive for opiate, benzodiazepine, cocaine and marijuana. Patient states that she was at her boyfriend's friend's house and there are 5 people passing around joints among them. She tried 5 different joints that day. Probably one of them was laced with cocaine. She states that she did not feel anything different while smoking the different joints. Patient strongly recommended to abstain from polysubstance abuse. * PT OT * Telemetry monitoring so far showing sinus rhythm, PVCs with some bigeminy and trigeminy. No other arrhythmia. * Psychiatry input appreciated. * Neurologically clear for discharge.
--- NOTE | 2022-12-18 00:45 | P.PN ---
Subjective Progress Note Date: 12/18/22 37-year-old the female with family history of for premature coronary artery disease and strokes, personal history of arrhythmia, not atrial fibrillation came to emergency department complaints of right-sided tingling numbness in the V2 V3 territory along with weakness in the left arm and difficulty ambulating. Patient had a CT angiography of the head didn't along with pain CT which is within normal limits. Patient is scheduled for an outpatient stress test tomorrow. Patient is also pending a pleuritic chest pain on the right side chest x-ray did not show any pneumonia facet of troponin is negative EKG is not available at this time but will be obtained. 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 Patient denied headache or any visual problems, retro-orbital pain 12/15/2022 Patient is evaluated today and today in the room she continues with gait dysfunction. Patient's left upper extremity is flaccid she does have a slight numbing feeling in her left hand which did not feel yesterday. She continues with bilateral lower extremity weakness worse in the left leg also. Did note some slurred speech yesterday also. Has a strong family history of stroke. Patient reports being evaluated by cardiology outpatient had an episode a few weeks ago where she feel to her knees with crushing chest pain but did not come in for evaluation. TSH 0.447 and T4 0.72 will recommend to repeat these outpatient. Troponin normal. A1C normal 5.9. Blood pressure is slightly elevated today 143/96. Neurology following closely. Brain MRI and Echocardiogram are pending. 12/16/2022 Patient is evaluated today sitting up in bed. Continues with left upper extremity weakness and also bilateral lower extremity weakness. Patient underwent MRI which reveals no evidence of intracranial mass or acute/subacute infarct or abnormal enhancement. Echocardiogram reveals negative bubble study, normal LV function, and to consider JAYLEN to definitively rule out cardiac source for thromboembolic CVA. Cervical spine xray shows no fracture or dislocation, mild to moderate degenerative disc disease changes of the cervical spine from C4 to C7. EKG showing sinus rhythm with short LA interval. Patient did have a panic attack today talking about life stressors including her , worried about who is going to care for her 3 year old son and also patient states she was in [facility] for 15 years has 2 older children around age 18 and states that they recently have been in her life and the dynamics there are stressful they have been texting her and she broke down started crying. Patient was given IV ativan. Would recommend to see psychiatry while inpatient. She does see [facility] outpatient. Urine drug toxicology showing opiates, benzodiazepines, cocaine and marijuana. Patient denies cocaine use. 12/17/22: Patient seen and evaluated bedside. Patient remains anxious. Patient was seen to be moving left upper extremity. Hence do not suspect CVA or myelopathy likely malingering. Seen by neurology as well and had cleared for discharge from neurological standpoint. Significant anxiety waiting for psychiatry evaluation 12/18/22: Objective - Vital Signs Vital signs: Vital Signs Temp 97.7 F 12/17/22 22:12 Pulse 69 12/17/22 22:12 Resp 16 12/17/22 22:12 BP 105/66 12/17/22 22:12 Pulse Ox 99 12/17/22 22:12 FiO2 Intake & Output 12/17/22 12/17/22 12/18/22 06:59 18:59 06:59 Intake Total 100 790 Output Total 100 Balance 100 690 Intake: IV 10 Invasive Line 1 10 Oral 100 780 Output: Urine 100 Other: Voiding Method Toilet Toilet Toilet # Voids 1 - Exam PHYSICAL EXAMINATION: GENERAL: The patient is alert and oriented x3 anxious, crying HEENT: Pupils are round and equally reacting to light. EOMI. CARDIOVASCULAR: S1 and S2 present. No murmurs, rubs, or gallops. PULMONARY: Chest is clear to auscultation, no wheezing or crackles. ABDOMEN: Soft, nontender, nondistended, normoactive bowel sounds. No palpable organomegaly. MUSCULOSKELETAL: No joint swelling or deformity. EXTREMITIES: No cyanosis, clubbing, or pedal edema. NEUROLOGICAL: Motor strength is 5 over 5 right upper and lower extremity, upon observation it was noted patient was able to keep left arm against gravity and strength at least 3 x 5, able to move left leg as well at least 3/5 - Labs CBC & Chem 7: 12/18/22 06:00 12/18/22 06:00 Assessment and Plan Assessment: Assessment and plan -Acute left-sided hemiparesis likely nonpathological >> Left arm flaccid, left hand numbness and bilateral lower extremity weakness. Right facial numbness. MRI done negative for stroke, No demyelination noted. Symptoms are possibly psychlogical in nature, with increased life stressors. -Severe anxiety and depression -Pleuritic chest pain has resolved and D-Dimer is found to be negative. -Chronic back pain -Nicotine use but doesn't smoke cigarettes -Polysubstance use drug tox positive for marijuana and cocaine, pt denies cocaine use. Plan * Consult obtained from neurology who has signed off, imaging review negative for any major etiology that could explain her left arm weakness. Patient was noted to be moving her left arm during bedside encounter * Significant anxiety, and depression. Psychiatry consulted * Continue with aspirin and statin therapy * PT/OT and speech therapy consultations in place
[2022-12-18] MEDS: HYDROcodone/APAP 5-325MG 1 EACH TAB PO PRN ×3 (05:36→19:57)
[2022-12-18 06:21] LABS: HCT 41.5 % (34.0-46.0); HGB 13.6 gm/dL (11.4-16.0); MCH 31.5 pg (25.0-35.0); MCHC 32.6 g/dL (31.0-37.0); MCV 96.5 fL (80.0-100.0); Mean Platelet Volume 7.9; Platelet Count 281 k/uL (150-450); WBC 9.9 k/uL (3.8-10.6)
[2022-12-18 06:31] LABS: African American GFR (CKD) >90 (>60 ml/min/1.73 sqM); Anion Gap 8 mmol/L; Blood Urea Nitrogen 16 mg/dL (7-17); C Reactive Protein <0.5 mg/dL (<1.0); Calcium 9.2 mg/dL (8.4-10.2); Carbon Dioxide 21 mmol/L (22-30); Chloride 105 mmol/L (98-107); Glucose 92 mg/dL (74-99); Non-African American GFR(CKD) >90 (>60 ml/min/1.73 sqM); Potassium 4.5 mmol/L (3.5-5.1); Sodium 134 mmol/L (137-145)
[2022-12-18] MEDS: CHOLECALCIFEROL 25 MCG (1000 IU) TABLET PO SCH (08:33)
[2022-12-18] MEDS: FAMOTIDINE 20 MG TAB PO SCH ×2 (08:33→19:57)
[2022-12-18] MEDS: LITHIUM CARBONATE ER 450 MG TABLET.ER PO SCH (08:33)
[2022-12-18] MEDS: DESVENLAFAXINE SUCCINATE 50 MG TAB.ER.24H PO SCH (08:33)
[2022-12-18] MEDS: ASPIRIN 325 MG TAB PO SCH (08:33)
[2022-12-18] MEDS: NICOTINE 21MG/24HR PATCH TRANSDERM SCH (08:33)
[2022-12-18] MEDS ORDERED: DESVENLAFAXINE SUCCINATE 50 MG TAB.ER.24H PO SCH (09:00)
[2022-12-18] MEDS: KETOROLAC 15 MG/ML 1 ML VIAL IVP PRN ×3 (09:07→22:54)
[2022-12-18] MEDS: LORazepam 0.5 MG TAB PO PRN ×3 (09:07→22:54)
[2022-12-18] MEDS ORDERED: SENNOSIDES 8.6 MG TAB PO PRN (11:25)
--- NOTE | 2022-12-18 13:20 | P.PN ---
Subjective Progress Note Date: 12/18/22 37-year-old the female with family history of for premature coronary artery disease and strokes, personal history of arrhythmia, not atrial fibrillation came to emergency department complaints of right-sided tingling numbness in the V2 V3 territory along with weakness in the left arm and difficulty ambulating. Patient had a CT angiography of the head didn't along with pain CT which is within normal limits. Patient is scheduled for an outpatient stress test tomorrow. Patient is also pending a pleuritic chest pain on the right side chest x-ray did not show any pneumonia facet of troponin is negative EKG is not available at this time but will be obtained. 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 Patient denied headache or any visual problems, retro-orbital pain 12/15/2022 Patient is evaluated today and today in the room she continues with gait dysfunction. Patient's left upper extremity is flaccid she does have a slight numbing feeling in her left hand which did not feel yesterday. She continues with bilateral lower extremity weakness worse in the left leg also. Did note some slurred speech yesterday also. Has a strong family history of stroke. Patient reports being evaluated by cardiology outpatient had an episode a few weeks ago where she feel to her knees with crushing chest pain but did not come in for evaluation. TSH 0.447 and T4 0.72 will recommend to repeat these outpatient. Troponin normal. A1C normal 5.9. Blood pressure is slightly elevated today 143/96. Neurology following closely. Brain MRI and Echocardiogram are pending. 12/16/2022 Patient is evaluated today sitting up in bed. Continues with left upper extremity weakness and also bilateral lower extremity weakness. Patient underwent MRI which reveals no evidence of intracranial mass or acute/subacute infarct or abnormal enhancement. Echocardiogram reveals negative bubble study, normal LV function, and to consider JAYLEN to definitively rule out cardiac source for thromboembolic CVA. Cervical spine xray shows no fracture or dislocation, mild to moderate degenerative disc disease changes of the cervical spine from C4 to C7. EKG showing sinus rhythm with short [place] interval. 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 Patient was given IV ativan. Would recommend to see psychiatry while inpatient. She does see [facility] outpatient. Urine drug toxicology showing opiates, benzodiazepines, cocaine and marijuana. Patient denies cocaine use. 12/17/22: Patient seen and evaluated bedside. Patient remains anxious. Patient was seen to be moving left upper extremity. Hence do not suspect CVA or myelopathy likely malingering. Seen by neurology as well and had cleared for discharge from neurological standpoint. Significant anxiety waiting for psychiatry evaluation 12/18/22: Patient seen and evaluated bedside, patient has significant improvement in mood, patient is laughing and talking to her on the phone. Patient says she had significant improvement and moved her left upper extremity and left lower extremity. Patient was assisted to hold a glass from the table which she usually did. Patient states she is making significant recovery and hopefully should be able to go home within the next 24 hours will wait for physical therapy evaluation patient would rather to home therapy instead of going [facility] appreciate input from psychiatry Objective - Vital Signs Vital signs: Vital Signs Temp 98.0 F 12/18/22 07:06 Pulse 62 12/18/22 07:06 Resp 17 12/18/22 07:06 BP 111/76 12/18/22 07:06 Pulse Ox 99 12/18/22 07:06 FiO2 Intake & Output 12/17/22 12/18/22 12/18/22 18:59 06:59 18:59 Intake Total 790 Output Total 100 Balance 690 Intake: IV 10 Invasive Line 1 10 Oral 780 Output: Urine 100 Other: Voiding Method Toilet Toilet # Voids 1 - Exam PHYSICAL EXAMINATION: GENERAL: The patient is alert and oriented x3 anxious, crying HEENT: Pupils are round and equally reacting to light. EOMI. CARDIOVASCULAR: S1 and S2 present. No murmurs, rubs, or gallops. PULMONARY: Chest is clear to auscultation, no wheezing or crackles. ABDOMEN: Soft, nontender, nondistended, normoactive bowel sounds. No palpable organomegaly. MUSCULOSKELETAL: No joint swelling or deformity. EXTREMITIES: No cyanosis, clubbing, or pedal edema. NEUROLOGICAL: Motor strength is 5 over 5 right upper and lower extremity, patient voluntarily able to move left upper and lower extremity strength is at least 4 x 5 now - Labs CBC & Chem 7: 12/18/22 06:00 12/18/22 06:00 Labs: Abnormal Lab Results - Last 24 Hours (Table) 12/18/22 Range/Units 06:00 Sodium 134 L (137-145) mmol/L Carbon Dioxide 21 L (22-30) mmol/L Assessment and Plan Assessment: Assessment and plan -Acute left-sided hemiparesis likely nonpathological >> Left arm flaccid, left hand numbness and bilateral lower extremity weakness. Right facial numbness. MRI done negative for stroke, No demyelination noted. Symptoms are possibly psychlogical in nature, with increased life stressors. -Severe anxiety and depression -Pleuritic chest pain has resolved and D-Dimer is found to be negative. -Chronic back pain -Nicotine use but doesn't smoke cigarettes -Polysubstance use drug tox positive for marijuana and cocaine, pt denies cocaine use. Plan * Consult obtained from neurology who has signed off, imaging review negative for any major etiology that could explain her left arm weakness. Etiology likely nonpathological * Significant anxiety, and depression. Psychiatry consulted, appreciate input continue current regimen including lithium, trazodone, Desyrel venlafaxine * Continue with aspirin and statin therapy * PT/OT consulted
[2022-12-18] MEDS: ATORVASTATIN 40 MG TAB PO SCH (19:57)
[2022-12-18] MEDS: traZODone HCL 50 MG TAB PO SCH (19:57)
[2022-12-19] MEDS: ASPIRIN 325 MG TAB PO SCH (07:51)
[2022-12-19] MEDS: LORazepam 0.5 MG TAB PO PRN ×3 (07:51→20:28)
[2022-12-19] MEDS: CHOLECALCIFEROL 25 MCG (1000 IU) TABLET PO SCH (07:51)
[2022-12-19] MEDS: FAMOTIDINE 20 MG TAB PO SCH ×2 (07:51→20:28)
[2022-12-19] MEDS: LITHIUM CARBONATE ER 450 MG TABLET.ER PO SCH (07:52)
[2022-12-19] MEDS: NICOTINE 21MG/24HR PATCH TRANSDERM SCH (07:52)
[2022-12-19] MEDS: DESVENLAFAXINE SUCCINATE 50 MG TAB.ER.24H PO SCH (07:52)
[2022-12-19] MEDS: KETOROLAC 15 MG/ML 1 ML VIAL IVP PRN ×2 (07:52→13:25)
[2022-12-19] MEDS: HYDROcodone/APAP 5-325MG 1 EACH TAB PO PRN ×2 (10:04→18:23)
--- NOTE | 2022-12-19 13:05 | P.PN ---
Subjective Progress Note Date: 12/19/22 37-year-old the female with family history of for premature coronary artery disease and strokes, personal history of arrhythmia, not atrial fibrillation came to emergency department complaints of right-sided tingling numbness in the V2 V3 territory along with weakness in the left arm and difficulty ambulating. Patient had a CT angiography of the head didn't along with pain CT which is within normal limits. Patient is scheduled for an outpatient stress test tomorrow. Patient is also pending a pleuritic chest pain on the right side chest x-ray did not show any pneumonia facet of troponin is negative EKG is not available at this time but will be obtained. 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 Patient denied headache or any visual problems, retro-orbital pain 12/15/2022 Patient is evaluated today and today in the room she continues with gait dysfunction. Patient's left upper extremity is flaccid she does have a slight numbing feeling in her left hand which did not feel yesterday. She continues with bilateral lower extremity weakness worse in the left leg also. Did note some slurred speech yesterday also. Has a strong family history of stroke. Patient reports being evaluated by cardiology outpatient had an episode a few weeks ago where she feel to her knees with crushing chest pain but did not come in for evaluation. TSH 0.447 and T4 0.72 will recommend to repeat these outpatient. Troponin normal. A1C normal 5.9. Blood pressure is slightly elevated today 143/96. Neurology following closely. Brain MRI and Echocardiogram are pend ing. 12/16/2022 Patient is evaluated today sitting up in bed. Continues with left upper extremity weakness and also bilateral lower extremity weakness. Patient underwent MRI which reveals no evidence of intracranial mass or acute/subacute infarct or abnormal enhancement. Echocardiogram reveals negative bubble study, normal LV function, and to consider JAYLEN to definitively rule out cardiac source for thromboembolic CVA. Cervical spine xray shows no fracture or dislocation, mild to moderate degenerative disc disease changes of the cervical spine from C4 to C7. EKG showing sinus rhythm with short [place] interval. 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 Patient was given IV ativan. Would recommend to see psychiatry while inpatient. She does see [facility] outpatient. Urine drug toxicology showing opiates, benzodiazepines, cocaine and marijuana. Patient denies cocaine use. 12/17/22: Patient seen and evaluated bedside. Patient remains anxious. Patient was seen to be moving left upper extremity. Hence do not suspect CVA or myelopathy likely malingering. Seen by neurology as well and had cleared for discharge from neurological standpoint. Significant anxiety waiting for psychiatry evaluation 12/18/22: Patient seen and evaluated bedside, patient has significant improvement in mood, patient is laughing and talking to her on the phone. Patient says she had significant improvement and moved her left upper extremity and left lower extremity. Patient was assisted to hold a glass from the table which she usually did. Patient states she is making significant recovery and hopefully should be able to go home within the next 24 hours will wait for physical therapy evaluation patient would rather to home therapy instead of going to [facility] appreciate input from psychiatry 12/19/22: Patient seen and evaluated bedside, patient alert and oriented 4, patient moving left upper and lower extremity well. Per nursing staff gait is still unstable. Troponin and d-dimer negative expected discharge within the next 24 hours Objective - Vital Signs Vital signs: Vital Signs Temp 98.1 F 12/19/22 07:22 Pulse 74 12/19/22 07:22 Resp 18 12/19/22 07:22 BP 101/68 12/19/22 07:22 Pulse Ox 100 12/19/22 07:22 FiO2 Intake & Output 12/18/22 12/19/22 12/19/22 18:59 06:59 18:59 Other: Voiding Method Toilet # Voids 2 2 - Exam GENERAL: The patient is alert and oriented x3 anxious, crying HEENT: Pupils are round and equally reacting to light. EOMI. CARDIOVASCULAR: S1 and S2 present. No murmurs, rubs, or gallops. PULMONARY: Chest is clear to auscultation, no wheezing or crackles. ABDOMEN: Soft, nontender, nondistended, normoactive bowel sounds. No palpable organomegaly. MUSCULOSKELETAL: No joint swelling or deformity. EXTREMITIES: No cyanosis, clubbing, or pedal edema. NEUROLOGICAL: Motor strength is 5 over 5 right upper and lower extremity, patient voluntarily able to move left upper and lower extremity strength is at least 4 x 5 now - Labs CBC & Chem 7: 12/18/22 06:00 12/18/22 06:00 Assessment and Plan Assessment: Assessment and plan * Acute left-sided hemiparesis likely nonpathological >> Left arm flaccid, left hand numbness and bilateral lower extremity weakness. Right facial numbness. MRI done negative for stroke, No demyelination noted. Symptoms are possibly psychlogical in nature, with increased life stressors. * Severe anxiety and depression * Pleuritic chest pain has resolved, cardiac workup negative * Chronic back pain * Nicotine use but doesn't smoke cigarettes * Polysubstance use drug tox positive for marijuana and cocaine, pt denies cocaine use. Plan * Consult obtained from neurology who has signed off, imaging review negative for any major etiology that could explain her left arm weakness. Etiology likely nonpathological * Significant anxiety, and depression. Psychiatry consulted, appreciate input continue current regimen including lithium, trazodone, Desyrel venlafaxine * Continue with aspirin and statin therapy * PT/OT consulted, will go home with home care * Patient will need a walker for home * Will need outpatient follow-up with Chele Rivas
[2022-12-19] MEDS: HYDROmorphone 0.5 MG/0.5 ML SYRINGE IVP PRN ×4 (14:04→23:25)
[2022-12-19] MEDS: traZODone HCL 50 MG TAB PO SCH (20:28)
[2022-12-19] MEDS: ATORVASTATIN 40 MG TAB PO SCH (20:28)
[2022-12-20] MEDS: HYDROcodone/APAP 5-325MG 1 EACH TAB PO PRN ×2 (04:00→10:21)
[2022-12-20] MEDS: HYDROmorphone 0.5 MG/0.5 ML SYRINGE IVP PRN ×2 (08:21→11:48)
[2022-12-20] MEDS: NICOTINE 21MG/24HR PATCH TRANSDERM SCH (08:22)
[2022-12-20] MEDS: FAMOTIDINE 20 MG TAB PO SCH (08:22)
[2022-12-20] MEDS: LITHIUM CARBONATE ER 450 MG TABLET.ER PO SCH (08:22)
[2022-12-20] MEDS: CHOLECALCIFEROL 25 MCG (1000 IU) TABLET PO SCH (08:22)
[2022-12-20 08:33] VITALS: BP 106/71; PULSE 68; RESP 18; TEMP 98.4
[2022-12-20] MEDS: DESVENLAFAXINE SUCCINATE 50 MG TAB.ER.24H PO SCH (08:39)
[2022-12-20] MEDS ORDERED: ASPIRIN 81 MG PO SCH (09:00)
[2022-12-20] MEDS: LORazepam 0.5 MG TAB PO PRN (10:22)
--- NOTE | 2022-12-20 11:17 | P.DS ---
Providers Date of admission: 12/14/22 17:03 Expected date of discharge: 12/20/22 Attending physician: Milagro Marks Consults: 12/14/22 17:00 Consult Physician Routine Consulting Provider: Shea Miner Consult Reason/Comments: Possible stroke Do you want consulting provider notified?: Yes 12/16/22 10:52 Consult Physician Routine Consulting Provider: Chele Griffith Consult Reason/Comments: increased stress Do you want consulting provider notified?: Yes Primary care physician: [facility] Course: 37-year-old the female with family history of for premature coronary artery disease and strokes, personal history of arrhythmia, not atrial fibrillation came to emergency department complaints of right-sided tingling numbness in the V2 V3 territory along with weakness in the left arm and difficulty ambulating. Patient had a CT angiography of the head didn't along with pain CT which is within normal limits. Patient is scheduled for an outpatient stress test t omorrow. Patient is also pending a pleuritic chest pain on the right side chest x-ray did not show any pneumonia facet of troponin is negative EKG is not available at this time but will be obtained. 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 Patient denied headache or any visual problems, retro-orbital pain 12/15/2022 Patient is evaluated today and today in the room she continues with gait dysfunction. Patient's left upper extremity is flaccid she does have a slight numbing feeling in her left hand which did not feel yesterday. She continues wi th bilateral lower extremity weakness worse in the left leg also. Did note some slurred speech yesterday also. Has a strong family history of stroke. Patient reports being evaluated by cardiology outpatient had an episode a few weeks ago where she feel to her knees with crushing chest pain but did not come in for evaluation. TSH 0.447 and T4 0.72 will recommend to repeat these outpatient. Troponin normal. A1C normal 5.9. Blood pressure is slightly elevated today 143/96. Neurology following closely. Brain MRI and Echocardiogram are pending. 12/16/2022 Patient is evaluated today sitting up in bed. Continues with left upper extremity weakness and also bilateral lower extremity weakness. Patient underwent MRI which reveals no evidence of intracranial mass or acute/subacute infarct or abnormal enhancement. Echocardiogram reveals negative bubble study, normal LV function, and to consider JAYLEN to definitively rule out cardiac source for thromboembolic CVA. Cervical spine xray shows no fracture or dislocation, mild to moderate degenerative disc disease changes of the cervical spine from C4 to C7. EKG showing sinus rhythm with short [place] interval. Patient did have a panic attack today talking about life stressors including her , worried about who is going to care for her 3 year old son and also patient states she was in jail for 15 years has 2 older children around age 18 and states that they recently have been in her life and the dynamics there are stressful they have been texting her and she broke down started crying. Patient was given IV ativan. Would recommend to see psychiatry while inpatient. She does see [facility] outpatient. Urine drug toxicology showing opiates, benzodiazepines, cocaine and marijuana. Patient denies cocaine use. 12/17/22: Patient seen and evaluated bedside. Patient remains anxious. Patient was seen to be moving left upper extremity. Hence do not suspect CVA or myelopathy likely malingering. Seen by neurology as well and had cleared for discharge from neurological standpoint. Significant anxiety waiting for psychiatry evaluation 12/18/22: Patient seen and evaluated bedside, patient has significant improvement in mood, patient is laughing and talking to her on the phone. Patient says she had significant improvement and moved her left upper extremity and left lower extremity. Patient was assisted to hold a glass from the table which she usually did. Patient states she is making significant recovery and hopefully should be able to go home within the next 24 hours will wait for physical therapy evaluation patient would rather to home therapy instead of going to rehab place appreciate input from psychiatry 12/19/22: Patient seen and evaluated bedside, patient alert and oriented 4, patient moving left upper and lower extremity well. Per nursing staff gait is still unstable. Troponin and d-dimer negative expected discharge within the next 24 hours 12/20/22: Patient seen and evaluated bedside. Patient alert and oriented 4. Patient was anxious well on the phone with her mother. Patient was explained what conversion disorder means. She was explained that she needs to work with therapy. Patient was offered discharge to subacute rehab and she does not feel comfortable going home however patient stated she will go home she has support from her . And has to see 2-year-old gait. Patient was given a walker. She was able to come to the bedside without any assisted. Moving all 4 extremities. Prescription provided and sent information for psychiatry given GENERAL: The patient is alert and oriented x3 anxious, crying HEENT: Pupils are round and equally reacting to light. EOMI. CARDIOVASCULAR: S1 and S2 present. No murmurs, rubs, or gallops. PULMONARY: Chest is clear to auscultation, no wheezing or crackles. ABDOMEN: Soft, nontender, nondistended, normoactive bowel sounds. No palpable organomegaly. MUSCULOSKELETAL: No joint swelling or deformity. EXTREMITIES: No cyanosis, clubbing, or pedal edema. NEUROLOGICAL: Motor strength is 5 over 5 right upper and lower extremity, patient voluntarily able to move left upper and lower extremity strength is at least 4 x 5 now Assessment: Assessment and plan * Acute left-sided hemiparesis likely nonpathological >> Left arm flaccid, left hand numbness and bilateral lower extremity weakness. Right facial numbness. MRI done negative for stroke, No demyelination noted. Symptoms are possibly psychlogical in nature, with increased life stressors. * Severe anxiety and depression * Pleuritic chest pain has resolved, cardiac workup negative * Chronic back pain * Nicotine use but doesn't smoke cigarettes * Polysubstance use drug tox positive for marijuana and cocaine, pt denies c ocaine use. Plan * Consult obtained from neurology who has signed off, imaging review negative for any major etiology that could explain her left arm weakness. Etiology likely nonpathological * Significant anxiety, and depression. Psychiatry consulted, appreciate input continue current regimen including lithium, trazodone, Desyrel venlafaxine * Continue with aspirin and statin therapy * PT/OT consulted, will go home with home care * Patient will need a walker for home * Will need outpatient follow-up with Chele Griffith * During my encounter listened, explained and gave all instructions. Patient doesn't want to go to subacute rehab. We will discharge home fall precautions and safety precautions discussed Patient Condition at Discharge: Stable Plan - Discharge Summary New Discharge Prescriptions: New Aspirin 81 mg PO DAILY 30 Days #30 tab [place] Carbonate ER [Lithobid] 450 mg PO DAILY 30 Days #30 tab Desvenlafaxine Succinate [Pristiq ER] 100 mg PO DAILY 30 Days #60 tab traZODone HCL [Desyrel] 50 mg PO HS 30 Days #30 tab Atorvastatin [Lipitor] 40 mg PO HS 30 Days #30 tab HYDROcodone/APAP 5-325MG [[place] 5-325] 1 each PO Q6HR PRN 3 Days #12 tab PRN Reason: Pain Continue Cholecalciferol [Vitamin D3 (25 Mcg = 1000 Iu)] 50 mcg PO DAILY EPINEPHrine (Auto Inject) [Epipen] 0.3 mg IM ONCE PRN PRN Reason: Anaphylaxis Famotidine [Pepcid] 20 mg PO HS clonazePAM [KlonoPIN] 0.25 mg PO DAILY PRN 3 Days #3 tab PRN Reason: Anxiety Discontinued Desvenlafaxine Succinate [Pristiq ER] 50 mg PO DAILY lamoTRIgine [LaMICtal] 25 mg PO HS Discharge Medication List Cholecalciferol [Vitamin D3 (25 Mcg = 1000 Iu)] 50 mcg PO DAILY 12/14/22 [History] EPINEPHrine (Auto Inject) [Epipen] 0.3 mg IM ONCE PRN 12/14/22 [History] Famotidine [Pepcid] 20 mg PO HS 12/14/22 [History] Aspirin 81 mg PO DAILY 30 Days #30 tab 12/20/22 [Rx] Atorvastatin [Lipitor] 40 mg PO HS 30 Days #30 tab 12/20/22 [Rx] Desvenlafaxine Succinate [Pristiq ER] 100 mg PO DAILY 30 Days #60 tab 12/20/22 [Rx] HYDROcodone/APAP 5-325MG [[place] 5-325] 1 each PO Q6HR PRN 3 Days #12 tab 12/20/22 [Rx] [place] Carbonate ER [Lithobid] 450 mg PO DAILY 30 Days #30 tab 12/20/22 [Rx] clonazePAM [KlonoPIN] 0.25 mg PO DAILY PRN 3 Days #3 tab 12/20/22 [Rx] traZODone HCL [Desyrel] 50 mg PO HS 30 Days #30 tab 12/20/22 [Rx] Follow up Appointment(s)/Referral(s): Chele Griffith MD [Medical Doctor] - 1 Week [facility], [NON-STAFF] - 1-2 Days Juliette Kinney MD [Primary Care Provider] - 1-2 days Patient Instructions/Handouts: Mood Disorders (GEN) Discharge/Stand Alone Forms: AA Meetings [place], Community Resources, Outpatient Counseling Discharge Disposition: HOME WITH HOME HEALTH SERVICES
== END 2022-12-20 14:08 | disposition home health service (06) ==
LOC: EC 13:51 → 3SCARD 17:03 → 4SSUR 12-17 21:56
PROVIDERS: ADMIT Hospitalist; ATTEND Hospitalist
DX: G81.94 Hemiplegia, unspecified affecting left nondominant side (principal); R20.0 Anesthesia of skin; R20.2 Paresthesia of skin; R53.1 Weakness; H53.8 Other visual disturbances; R47.81 Slurred speech; R07.81 Pleurodynia; M54.9 Dorsalgia, unspecified; G89.29 Other chronic pain; F31.9 Bipolar disorder, unspecified; K21.9 Gastro-esophageal reflux disease without esophagitis; F44.9 Dissociative and conversion disorder, unspecified; F14.10 Cocaine abuse, uncomplicated; F12.10 Cannabis abuse, uncomplicated; F41.9 Anxiety disorder, unspecified; F17.290 Nicotine dependence, other tobacco product, uncomplicated; Z56.0 Unemployment, unspecified; Z85.41 Personal history of malignant neoplasm of cervix uteri; Z79.899 Other long term (current) drug therapy; Z88.2 Allergy status to sulfonamides; Z88.5 Allergy status to narcotic agent; Z82.3 Family history of stroke; Z82.49 Family history of ischemic heart disease and other diseases of the circulatory system
CPT/HCPCS: 96376 ×6; 96375 ×3; 96374; 99285; 36415; 94760 ×2; 93005; 93306; 97116 ×3; 97530 ×2; 97162; 97535 ×2; 97166; 92610; 92523; 97129; 85379 ×2; 84439; 80053; 80048; 80061; 84443; 82607; 82550; 83735; 84484 ×2; 85025; 85027; 85610; 85730; 86140; 80306; 83036; 72050; 71046; 70496; 70450; 70498; 70553; G0378 ×7; S4990 ×7; J2060; J1100; J1885 ×6; J1170 ×2; Q9967; A9585

== ENCOUNTER → 2023-04-20 | Outpatient (CLI) | payer OTHER ==
[2023-04-20 15:45] LABS: Basophils # (A) 0.06 X 10*3/uL (0.00-0.10); Basophils % (A) 0.6 %; Eosinophils # (A) 0.29 X 10*3/uL (0.04-0.35); Eosinophils % (A) 3.1 %; HCT 36.4 % (37.2-46.3); HGB 11.4 g/dL (12.0-15.0); Lymphocytes # (A) 2.36 X 10*3/uL (0.90-5.00); Lymphocytes % (A) 24.9 %; MCHC 31.3 g/dL (32.0-37.0); MCV 95.8 FL (80.0-97.0); Monocytes # (A) 0.61 X 10*3/uL (0.20-1.00); Monocytes % (A) 6.4 %; NRBC Per 100 WBC 0 X 10*3/uL (0.00-0.01); Neutrophils % (A) 64.5 %; Platelet Count 334 X 10*3/uL (140-440); RDW 13.8 % (11.5-14.5); WBC 9.47 X 10*3/uL (4.50-10.00)
[2023-04-20 15:57] LABS: BUN/Creat Ratio 14.67 Ratio (12.00-20.00); Blood Urea Nitrogen 8.8 mg/dL (9.0-27.0); Chloride 102 mmol/L (96-109); Glucose 91 mg/dL (70-110); Potassium 4.9 mmol/L (3.5-5.5); Sodium 140 mmol/L (135-145)
[2023-04-20 15:58] LABS: ALT 22 U/L (8-44); AST 16 U/L (13-35); Albumin/Globulin Ratio 1.74 Ratio (1.60-3.17); Alkaline Phosphatase 55 U/L (41-126); Bilirubin, Conjugated <0.20 mg/dL (0.20-0.40); Calcium 9.5 mg/dL (8.7-10.3); Globulin 2.3 g/dL (1.6-3.3); Total Bilirubin <0.2 mg/dL (0.3-1.2); Total Protein 6.3 g/dL (6.2-8.2)
== END | disposition home or self-care (01) ==
LOC: LABWHC1 10:22
PROVIDERS: ATTEND Psychiatry & Neurology Psychiatry
DX: Z51.81 Encounter for therapeutic drug level monitoring (principal); Z79.899 Other long term (current) drug therapy
CPT/HCPCS: 36415; 80048; 80076; 80178; 84439; 84443; 85025

== ENCOUNTER 2023-12-10 20:05 | Emergency (ER) | payer OTHER ==
--- NOTE | 2023-12-10 20:46 | ED ---
Abdominal Pain HPI - General Chief Complaint: Abdominal Pain Stated Complaint: abd pain,urogenital Time Seen by Provider: 12/10/23 20:26 Source: patient, RN notes reviewed Mode of arrival: ambulatory Limitations: no limitations - History of Present Illness Initial Comments: This is a 38-year-old female who presents to the emergency department for abdominal pain. Patient states that she has been dealing with left-sided abdominal pain for years but it started to get worse recently. Over the last couple of days she has gotten much worse pain, particularly in the left lower quadrant. Additionally, she was told that she recently had a positive Cologuard test and is worried about internal bleeding. States that she also had microscopic blood identified on her urine. Denies any wayne blood in her stool or urine. She has mild nausea on occasions but no vomiting. Denies any diarrhea or constipation. Currently treating pain with Percocet. MD Complaint: abdominal pain - Related Data Home Medications Medication Instructions Recorded Confirmed Cholecalciferol [Vitamin D3 (25 50 mcg PO DAILY 12/14/22 12/14/22 Mcg = 1000 Iu)] EPINEPHrine (Auto Inject) [Epipen] 0.3 mg IM ONCE PRN 12/14/22 12/14/22 Famotidine [Pepcid] 20 mg PO HS 12/14/22 12/14/22 Previous Rx's Medication Instructions Recorded Aspirin 81 mg PO DAILY 30 Days #30 tab 12/20/22 Atorvastatin [Lipitor] 40 mg PO HS 30 Days #30 tab 12/20/22 Desvenlafaxine Succinate [Pristiq 100 mg PO DAILY 30 Days #60 tab 12/20/22 ER] HYDROcodone/APAP 5-325MG [[place] 1 each PO Q6HR PRN 3 Days #12 tab 12/20/22 5-325] [place] Carbonate ER [Lithobid] 450 mg PO DAILY 30 Days #30 tab 12/20/22 clonazePAM [KlonoPIN] 0.25 mg PO DAILY PRN 3 Days #3 tab 12/20/22 traZODone HCL [Desyrel] 50 mg PO HS 30 Days #30 tab 12/20/22 Dicyclomine [Bentyl] 20 mg PO QID PRN #30 tablet 12/10/23 Meloxicam [Mobic] 15 mg PO DAILY PRN #30 tab 12/10/23 Allergies Allergy/AdvReac Type Severity Reaction Status Date / Time phenytoin [From Dilantin] Allergy Rash/Hives Verified 12/10/23 20:22 Sulfa (Sulfonamide Allergy Rash/Hives Verified 12/10/23 20:22 Antibiotics) morphine AdvReac Swelling Verified 12/10/23 20:22 Review of Systems ROS Statement: Those systems with pertinent positive or pertinent negative responses have been documented in the HPI. ROS Other: All systems not noted in ROS Statement are negative. Past Medical History Past Medical History: Cancer, GERD/Reflux, Seizure Disorder Additional Past Medical History / Comment(s): cervical cancer. History of Any Multi-Drug Resistant Organisms: None Reported Past Surgical History: Orthopedic Surgery, Uterine Ablation Additional Past Surgical History / Comment(s): colonoscopy, EGD. cyst removal on uterus and neck surgery, LEEP Past Psychological History: Anxiety, Depression Smoking Status: Vaper Past Alcohol Use History: Occasional Past Drug Use History: Marijuana General Exam Limitations: no limitations General appearance: alert, in no apparent distress Head exam: Present: atraumatic, normocephalic, normal inspection Respiratory exam: Present: normal lung sounds bilaterally. Absent: respiratory distress, wheezes, rales, rhonchi, stridor Cardiovascular Exam: Present: regular rate, normal rhythm, normal heart sounds. Absent: systolic murmur, diastolic murmur, rubs, gallop, clicks GI/Abdominal exam: Present: soft, tenderness (LLQ), normal bowel sounds. Absent: distended Neurological exam: Present: alert, oriented X3, CN II-XII intact Psychiatric exam: Present: normal affect, normal mood Skin exam: Present: warm, dry, intact, normal color. Absent: rash Course Vital Signs 12/10/23 20:18 Temperature 98.2 F Pulse Rate 67 Respiratory 15 Rate Blood Pressure 143/94 O2 Sat by Pulse 100 Oximetry Medical Decision Making - Medical Decision Making This is a 38 year old female who presents to the emergency department for abdominal pain. Was pt. sent in by a medical professional or institution? @ -No Did you speak to anyone other than the patient for history? @ -No Did you review nursing and triage notes? @ -Yes, and I agree, it is accurate with regards to the patient's symptoms. Were old charts reviewed? @ -No Differential Diagnosis? @ -Differential Abdominal Pain Women: Appendicitis, Cholecystitis, diverticulosis, ischemic bowel, pancreatitis, hepatitis, UTI, gastroenteritis, AAA, incarcerated hernia, bowel obstruction, constipation, inflammatory bowel, hepatitis, peptic ulcer disease, splenic infarction, perforated viscus, vulvitis, ovarian torsion, PID, kidney stone, placenta abruption, this is not meant to be an all-inclusive list EKG interpreted by me (3pts min.)? @ -Not obtained X-rays interpreted by me (1pt min.)? @ -Not obtained CT interpreted by me (1pt min.)? @ -CT scan of the abdomen and pelvis obtained. My interpretation identifies no evidence of a ureteral calculus. U/S interpreted by me (1pt. min.)? @ -Not obtained What testing was considered but not performed? (CT, X-rays, U/S, labs)? Why? @ -None What meds were considered but not given? Why? @ -None Did you discuss the management of the patient with other professionals? @ -No Did you reconcile home meds? @ -No Was smoking cessation discussed for >3mins.? @ -No Was critical care preformed (if so, how long)? @ -No Were there social determinants of health that impacted care today? How? (Homelessness, low income, unemployed, alcoholism, drug addiction, transportation, low edu. Level, literacy, decrease access to med. care, custodial, rehab)? @ -No Was there de-escalation of care discussed even if they declined? (Discuss DNR or withdrawal of care, Hospice)? @ -No What co-morbidities impacted this encounter? (DM, HTN, Smoking, COPD, CAD, Cancer, CVA, Hep., AIDS, mental health diagnosis, sleep apnea, morbid obesity)? @ -None Was patient admitted / discharged? @ -Discharged. Lab work unremarkable. Urinalysis does demonstrate a large amount of blood but is negative for signs of infection. CT scan of the abdomen and pelvis reveals no acute process. Pain was managed in the emergency department. Advised that the cause of her symptoms is not entirely clear. She will need to follow-up regarding the positive Cologuard test for a colonoscopy. Also advised follow-up with urology for the painless hematuria. Prescription for Mobic and Bentyl provided to see if that offers her any additional relief. Otherwise advised close follow-up with her primary care provider. Patient discharged home in stable condition. Case discussed with ED attending Dr. Zhu. Return precautions reviewed in depth, the patient is instructed to return to the emergency department with any new, worsening, or concerning symptoms. Patient verbalized understanding. Undiagnosed new problem with uncertain prognosis? @ -None Drug Therapy requiring intensive monitoring for toxicity (Heparin, Nitro, Insulin, Cardizem)? @ -None Were any procedures done? @ -None Diagnosis/symptom? @ -Abdominal pain Acute, or Chronic, or Acute on Chronic? @ -Chronic Uncomplicated (without systemic symptoms) or Complicated (systemic symptoms)? @ -Uncomplicated Side effects of treatment? @ -None Exacerbation, Progression, or Severe Exacerbation] @ -Exacerbation/progression Poses a threat to life or bodily function? @ -No - Lab Data Result diagrams: 12/10/23 20:35 12/10/23 20:35 Lab Results 12/10/23 12/10/23 12/10/23 Range/Units 20:35 20:35 20:35 WBC 7.6 (3.8-10.6) k/uL RBC 4.39 (3.80-5.40) m/uL Hgb 13.6 (11.4-16.0) gm/dL Hct 42.1 (34.0-46.0) % MCV 96.0 (80.0-100.0) fL MCH 30.9 (25.0-35.0) pg MCHC 32.2 (31.0-37.0) g/dL RDW 13.7 (11.5-15.5) % Plt Count 308 (150-450) k/uL MPV 7.8 Neutrophils % 47 % Lymphocytes % 39 % Monocytes % 7 % Eosinophils % 4 % Basophils % 1 % Neutrophils # 3.5 (1.3-7.7) k/uL Lymphocytes # 2.9 (1.0-4.8) k/uL Monocytes # 0.5 (0-1.0) k/uL Eosinophils # 0.3 (0-0.7) k/uL Basophils # 0.1 (0-0.2) k/uL Sodium 138 (137-145) mmol/L Potassium 4.3 (3.5-5.1) mmol/L Chloride 106 (98-107) mmol/L Carbon Dioxide 26 (22-30) mmol/L Anion Gap 6 mmol/L BUN 11 (7-17) mg/dL Creatinine 0.67 (0.52-1.04) mg/dL Est GFR (CKD-EPI)AfAm >90 (>60 ml/min/1.73 sqM) Est GFR (CKD-EPI)NonAf >90 (>60 ml/min/1.73 sqM) Glucose 82 (74-99) mg/dL Plasma Lactic Acid Raghu (0.7-2.0) mmol/L Calcium 9.8 (8.4-10.2) mg/dL Magnesium 1.9 (1.6-2.3) mg/dL Total Bilirubin 0.8 (0.2-1.3) mg/dL AST 28 (14-36) U/L ALT 24 (4-34) U/L Alkaline Phosphatase 41 (38-126) U/L Total Protein 7.5 (6.3-8.2) g/dL Albumin 4.8 (3.5-5.0) g/dL Amylase 82 (30-110) U/L Lipase 315 H (23-300) U/L Urine Color Colorless Urine Appearance Clear (Clear) Urine pH 7.5 (5.0-8.0) Ur Specific [place] 1.008 (1.001-1.035) Urine Protein Negative (Negative) Urine Glucose (UA) Negative (Negative) Urine Ketones Negative (Negative) Urine Blood Large H (Negative) Urine Nitrite Negative (Negative) Urine Bilirubin Negative (Negative) Urine Urobilinogen <2.0 (<2.0) mg/dL Ur Leukocyte Esterase Negative (Negative) Urine RBC 35 H (0-5) /hpf Urine WBC 1 (0-5) /hpf Ur Squamous Epith Cells 7 H (0-4) /hpf Urine Bacteria Rare H (None) /hpf 12/10/23 Range/Units 20:35 WBC (3.8-10.6) k/uL RBC (3.80-5.40) m/uL Hgb (11.4-16.0) gm/dL Hct (34.0-46.0) % MCV (80.0-100.0) fL MCH (25.0-35.0) pg MCHC (31.0-37.0) g/dL RDW (11.5-15.5) % Plt Count (150-450) k/uL MPV Neutrophils % % Lymphocytes % % Monocytes % % Eosinophils % % Basophils % % Neutrophils # (1.3-7.7) k/uL Lymphocytes # (1.0-4.8) k/uL Monocytes # (0-1.0) k/uL Eosinophils # (0-0.7) k/uL Basophils # (0-0.2) k/uL Sodium (137-145) mmol/L Potassium (3.5-5.1) mmol/L Chloride (98-107) mmol/L Carbon Dioxide (22-30) mmol/L Anion Gap mmol/L BUN (7-17) mg/dL Creatinine (0.52-1.04) mg/dL Est GFR (CKD-EPI)AfAm (>60 ml/min/1.73 sqM) Est GFR (CKD-EPI)NonAf (>60 ml/min/1.73 sqM) Glucose (74-99) mg/dL Plasma Lactic Acid Raghu 1.8 (0.7-2.0) mmol/L Calcium (8.4-10.2) mg/dL Magnesium (1.6-2.3) mg/dL Total Bilirubin (0.2-1.3) mg/dL AST (14-36) U/L ALT (4-34) U/L Alkaline Phosphatase (38-126) U/L Total Protein (6.3-8.2) g/dL Albumin (3.5-5.0) g/dL Amylase (30-110) U/L Lipase (23-300) U/L Urine Color Urine Appearance (Clear) Urine pH (5.0-8.0) Ur Specific [place] (1.001-1.035) Urine Protein (Negative) Urine Glucose (UA) (Negative) Urine Ketones (Negative) Urine Blood (Negative) Urine Nitrite (Negative) Urine Bilirubin (Negative) Urine Urobilinogen (<2.0) mg/dL Ur Leukocyte Esterase (Negative) Urine RBC (0-5) /hpf Urine WBC (0-5) /hpf Ur Squamous Epith Cells (0-4) /hpf Urine Bacteria (None) /hpf - Radiology Data Radiology results: report reviewed, image reviewed Disposition Clinical Impression: Abdominal pain, Hematuria Disposition: HOME SELF-CARE Instructions (If sedation given, give patient instructions): Abdominal Pain (ED) Additional Instructions: Return to the emergency department with any new, worsening, or concerning symptoms. Begin taking the Mobic once daily to help with pain. You may take this with Tylenol for additional management of your pain. You can take the Bentyl up to 4 times daily to help with abdominal discomfort specifically. Contact the urologist listed below for a follow-up appointment regarding the blood in your urine. Follow up with your primary care provider in 1-2 days. Prescriptions: Dicyclomine [Bentyl] 20 mg PO QID PRN #30 tablet PRN Reason: Gi Upset Meloxicam [Mobic] 15 mg PO DAILY PRN #30 tab PRN Reason: Pain Is patient prescribed a controlled substance at d/c from ED?: No Referrals: Shakeel Levin MD [Primary Care Provider] - 1-2 days Lizandro Greenberg MD [STAFF PHYSICIAN] - 1-2 days Time of Disposition: 22:34
[2023-12-10 20:48] LABS: Basophils # (A) 0.1 k/uL (0-0.2); Basophils % (A) 1 %; Eosinophils # (A) 0.3 k/uL (0-0.7); Eosinophils % (A) 4 %; HCT 42.1 % (34.0-46.0); HGB 13.6 gm/dL (11.4-16.0); Lymphocytes # (A) 2.9 k/uL (1.0-4.8); Lymphocytes % (A) 39 %; MCH 30.9 pg (25.0-35.0); MCHC 32.2 g/dL (31.0-37.0); Mean Platelet Volume 7.8; Monocytes # (A) 0.5 k/uL (0-1.0); Monocytes % (A) 7 %; Neutrophils # (A) 3.5 k/uL (1.3-7.7); Neutrophils % (A) 47 %; Platelet Count 308 k/uL (150-450); RBC 4.39 m/uL (3.80-5.40); RDW 13.7 % (11.5-15.5); WBC 7.6 k/uL (3.8-10.6)
[2023-12-10] MEDS: SODIUM CHLORIDE 0.9% 1,000 ML IV STA (20:49)
[2023-12-10 21:03] LABS: ALT 24 U/L (4-34); AST 28 U/L (14-36); African American GFR (CKD) >90 (>60 ml/min/1.73 sqM); Albumin 4.8 g/dL (3.5-5.0); Alkaline Phosphatase 41 U/L (38-126); Amylase 82 U/L (30-110); Anion Gap 6 mmol/L; Blood Urea Nitrogen 11 mg/dL (7-17); Calcium 9.8 mg/dL (8.4-10.2); Carbon Dioxide 26 mmol/L (22-30); Chloride 106 mmol/L (98-107); Glucose 82 mg/dL (74-99); Lipase 315 U/L (23-300); Magnesium 1.9 mg/dL (1.6-2.3); Non-African American GFR(CKD) >90 (>60 ml/min/1.73 sqM); Potassium 4.3 mmol/L (3.5-5.1); Sodium 138 mmol/L (137-145); Total Bilirubin 0.8 mg/dL (0.2-1.3); Total Protein 7.5 g/dL (6.3-8.2)
[2023-12-10] MEDS: KETOROLAC 15 MG/ML 1 ML VIAL IVP STA (21:19)
[2023-12-10] MEDS: HYDROmorphone 1 MG/ML 1 ML SYRINGE IVP STA (21:20)
[2023-12-10 21:27] LABS: Appearance,Urine Clear (Clear); Bacteria,Urine Rare /hpf; Bilirubin,Urine Negative (Negative); Blood,Urine Large (Negative); Color,Urine Colorless; Glucose,Urine (UA) Negative (Negative); Ketones,Urine Negative (Negative); Leukocyte Esterase,Urine Negative (Negative); Nitrite,Urine Negative (Negative); PH, Urine 7.5 (5.0-8.0); Protein,Urine Negative (Negative); RBC,Urine 35 /hpf (0-5); Specific Gravity,Urine 1.008 (1.001-1.035); Squamous Epithelial Cell,Urine 7 /hpf (0-4); Urobilinogen,Urine <2.0 mg/dL (<2.0); WBC,Urine 1 /hpf (0-5)
--- NOTE | 2023-12-10 22:21 | CT ---
EXAMINATION TYPE: CT abdomen pelvis w con CT DLP: 608.1 mGycm, Automated exposure control for dose reduction was used. DATE OF EXAM: 12/10/2023 9:39 PM COMPARISON: None. CLINICAL INDICATION:Female, 38 years old with history of LLQ pain; Pt arrives in today for abdomin al pain, blood in stool, blood in urine and back pain. Hx of cervical CA, cyst removal on uterus. milli n on and off after hysteron 2 yrs ago. TECHNIQUE: Axial CT of the abdomen and pelvis. Sagittal and coronal reformats were created on a [employer] workstation. Contrast used:100 mL of Isovue 300 with IV Contrast, (none if empty) Oral contrast used: without Oral Contrast (none if empty) FINDINGS: LOWER CHEST: Unremarkable ABDOMEN LIVER: Unremarkable GALLBLADDER AND BILE DUCTS: Unremarkable gallbladder. No biliary ductal dilatation. PANCREAS: Unremarkable. SPLEEN: Unremarkable. ADRENAL GLANDS: Unremarkable. KIDNEYS AND URETERS: Kidneys enhance symmetrically. No evidence of hydronephrosis or visible renal ca lculus. The ureters are unremarkable. PELVIS BLADDER: Unremarkable REPRODUCTIVE: Uterus not seen, likely surgically absent. A 2.7 cm right adnexal hypodensity, likely dominant ovarian follicle. ABDOMEN & PELVIS STOMACH AND BOWEL: Stomach and small bowel are nondistended, no evidence of obstruction. The append ix is not seen with certainty but there is no inflammatory process seen in the pericecal region. Mild /moderate stool throughout the colon without acute abnormality seen. PERITONEUM/RETROPERITONEUM: No free fluid or free air in the abdomen. Small amount of free pelvic f luid, in physiologic range. VASCULATURE: Aorta and major branches are grossly unremarkable. No AAA. Portal veins are enhancing. Splenic and mesenteric veins are unremarkable. LYMPH NODES: No enlarged nodes by CT size criteria. SOFT TISSUE/ABDOMINAL WALL: Unremarkable MUSCULOSKELETAL: No acute osseous abnormalities. IMPRESSION: No acute abnormality in the abdomen or pelvis. [facility], , 12/10/2023 10:19 PM
[2023-12-10] MEDS: DICYCLOMINE 10 MG/ML 2 ML AMP IM STA (22:27)
[2023-12-10 22:46] VITALS: BP 132/81; PULSE 71; RESP 16; TEMP 97.6
== END 2023-12-10 22:46 | disposition home or self-care (01) ==
LOC: EC 20:05
CPT/HCPCS: 36415; 74177; 80053; 81001; 82150; 83605; 83690; 83735; 85025; 96361; 96372; 96374; 96375; 99284

== ENCOUNTER 2023-12-14 07:05 | Emergency (ER) | payer OTHER ==
--- NOTE | 2023-12-14 07:36 | ED ---
General Adult HPI - General Chief complaint: Abdominal Pain Stated complaint: Abd Pain Time Seen by Provider: 12/14/23 07:10 Source: patient, RN notes reviewed, old records reviewed Mode of arrival: ambulatory Limitations: no limitations - History of Present Illness Initial comments: 38-year-old female presents to the emergency department complaining of left- sided abdominal pain as well as left back pain. Patient states she has had the abdominal pain for 4 to 5 days. Patient was in the ER had a CAT scan previously she was told to follow-up with her primary medical care doctor and urology because she had hematuria. Patient states the pain is gotten a little bit worse in the back today so she came to the emergency department. Patient denies any nausea vomiting or diarrhea. Patient denies any fever or chills. Patient states she is yet to make an appointment with urology. States she also has fibromyalgia. - Related Data Home Medications Medication Instructions Recorded Confirmed Cholecalciferol [Vitamin D3 (25 50 mcg PO DAILY 12/14/22 12/14/22 Mcg = 1000 Iu)] EPINEPHrine (Auto Inject) [Epipen] 0.3 mg IM ONCE PRN 12/14/22 12/14/22 Famotidine [Pepcid] 20 mg PO HS 12/14/22 12/14/22 Previous Rx's Medication Instructions Recorded Aspirin 81 mg PO DAILY 30 Days #30 tab 12/20/22 Atorvastatin [Lipitor] 40 mg PO HS 30 Days #30 tab 12/20/22 Desvenlafaxine Succinate [Pristiq 100 mg PO DAILY 30 Days #60 tab 12/20/22 ER] HYDROcodone/APAP 5-325MG [[place] 1 each PO Q6HR PRN 3 Days #12 tab 12/20/22 5-325] [place] Carbonate ER [Lithobid] 450 mg PO DAILY 30 Days #30 tab 12/20/22 clonazePAM [KlonoPIN] 0.25 mg PO DAILY PRN 3 Days #3 tab 12/20/22 traZODone HCL [Desyrel] 50 mg PO HS 30 Days #30 tab 12/20/22 Dicyclomine [Bentyl] 20 mg PO QID PRN #30 tablet 12/10/23 Meloxicam [Mobic] 15 mg PO DAILY PRN #30 tab 12/10/23 Allergies Allergy/AdvReac Type Severity Reaction Status Date / Time phenytoin [From Dilantin] Allergy Rash/Hives Verified 12/14/23 07:09 Sulfa (Sulfonamide Allergy Rash/Hives Verified 12/14/23 07:09 Antibiotics) morphine AdvReac Swelling Verified 12/14/23 07:09 Review of Systems ROS Statement: Those systems with pertinent positive or pertinent negative responses have been documented in the HPI. ROS Other: All systems not noted in ROS Statement are negative. Past Medical History Past Medical History: Cancer, GERD/Reflux, Seizure Disorder Additional Past Medical History / Comment(s): cervical cancer. History of Any Multi-Drug Resistant Organisms: None Reported Past Surgical History: Orthopedic Surgery, Uterine Ablation Additional Past Surgical History / Comment(s): colonoscopy, EGD. cyst removal on uterus and neck surgery, LEEP Past Psychological History: Anxiety, Depression Smoking Status: Vaper Past Alcohol Use History: Occasional Past Drug Use History: Marijuana General Exam - General Exam Comments Initial Comments: GENERAL: Patient is well-developed and well-nourished. Patient is nontoxic and well- hydrated and is in mild distress. ENT: Neck is soft and supple. No significant lymphadenopathy is noted. Oropharynx is clear. Moist mucous membranes. Neck has full range of motion without eliciting any pain. EYES: The sclera were anicteric and conjunctiva were pink and moist. Extraocular movements were intact and pupils were equal round and reactive to light. Eyelids were unremarkable. PULMONARY: Unlabored respirations. Good breath sounds bilaterally. No audible rales rhonchi or wheezing was noted. CARDIOVASCULAR: There is a regular rate and rhythm without any murmurs gallops or rubs. ABDOMEN: Soft and nontender with normal bowel sounds. SKIN: Skin is clear with no lesions or rashes and otherwise unremarkable. NEUROLOGIC: Patient is alert and oriented x3. Cranial nerves II through XII are grossly intact. Motor and sensory are also intact. Normal speech, volume and content. Symmetrical smile. MUSCULOSKELETAL: Normal extremities with adequate strength and full range of motion. Some mild left mid back tenderness on palpation LYMPHATICS: No significant lymphadenopathy is noted PSYCHIATRIC: Normal psychiatric evaluation. Limitations: no limitations Course Vital Signs 12/14/23 07:07 Temperature 97.8 F Pulse Rate 73 Respiratory 18 Rate O2 Sat by Pulse 100 Oximetry Medical Decision Making - Medical Decision Making Was pt. sent in by a medical professional or institution (, PA, PROGRAMMING DIRECTOR, urgent care, hospital, or fci...) When possible be specific @ -No Did you speak to anyone other than the patient for history (EMS, parent, family, police, friend...)? What history was obtained from this source @ -No Did you review nursing and triage notes (agree or disagree)? Why? @ -I reviewed and agree with nursing and triage notes Were old charts reviewed (outside hosp., previous admission, EMS record, old EKG, old radiological studies, urgent care reports/EKG's, fci records)? Report findings @ -I reviewed the patient's prior CAT scan of the abdomen pelvis which was done 4 days ago. Differential Diagnosis? @ -Differential Abdominal Pain Women: Appendicitis, Cholecystitis, diverticulosis, ischemic bowel, pancreatitis, hepatitis, UTI, gastroenteritis, AAA, incarcerated hernia, bowel obstruction, constipation, inflammatory bowel, hepatitis, peptic ulcer disease, splenic in farction, perforated viscus, vulvitis, ovarian torsion, PID, kidney stone, placenta abruption, this is not meant to be an all-inclusive list EKG interpreted by me (3pts min.). @ -As above X-rays interpreted by me (1pt min.). @ -None done CT interpreted by me (1pt min.). @ -None done U/S interpreted by me (1pt. min.). @ -None done What testing was considered but not performed or refused? (CT, X-rays, U/S, labs)? Why? @ -None What meds were considered but not given or refused? Why? @ -None Did you discuss the management of the patient with other professionals (professionals i.e. , PA, PROGRAMMING DIRECTOR, lab, RT, psych nurse, secondary social studies teacher, sports internship, teacher, credit administration officer, classification case manager)? Give summary @ -No Was smoking cessation discussed for >3mins.? @ -No Was critical care preformed (if so, how long)? @ -No Were there social determinants of health that impacted care today? How? (Homelessness, low income, unemployed, alcoholism, drug addiction, transportation, low edu. Level, literacy, decrease access to med. care, custodial, rehab)? @ -No Was there de-escalation of care discussed even if they declined (Discuss DNR or withdrawal of care, Hospice)? DNR status @ -No What co-morbidities impacted this encounter? (DM, HTN, Smoking, COPD, CAD, Cancer, CVA, ARF, Chemo, Hep., AIDS, mental health diagnosis, sleep apnea, morbid obesity)? @ -None Was patient admitted / discharged? Hospital course, mention meds given and route, prescriptions, significant lab abnormalities, going to OR and other pertinent info. @ -Patient was given Toradol Norflex and Dilaudid and was feeling better but the pain did not completely resolved. Patient's lab work was all within normal range. Patient had a CAT scan 4 days ago and that did not show any acute abnormality patient will follow-up with primary medical care doctor Undiagnosed new problem with uncertain prognosis? @ -No Drug Therapy requiring intensive monitoring for toxicity (Heparin, Nitro, Insulin, Cardizem)? @ -No Were any procedures done? @ -No Diagnosis/symptom? @ -Musculoskeletal back pain Acute, or Chronic, or Acute on Chronic? @ -Acute Uncomplicated (without systemic symptoms) or Complicated (systemic symptoms)? @ -Uncomplicated Side effects of treatment? @ -No Exacerbation, Progression, or Severe Exacerbation? @ -No Poses a threat to life or bodily function? How? (Chest pain, [place], [place], pneumonia, PE, COPD, DKA, ARF, appy, cholecystitis, CVA, Diverticulitis, Homicidal, Suicidal, threat to staff... and all critical care pts) @ -No Diagnosis/symptom? @ -Abdominal pain Acute, or Chronic, or Acute on Chronic? @ -Acute Uncomplicated (without systemic symptoms) or Complicated (systemic symptoms)? @ -Complicated Side effects of treatment? @ -None Exacerbation, Progression, or Severe Exacerbation] @ -No Poses a threat to life or bodily function? @ -No - Lab Data Result diagrams: 12/14/23 08:12 12/14/23 08:12 Lab Results 12/14/23 12/14/23 12/14/23 Range/Units 08:12 08:12 08:12 WBC 8.0 (3.8-10.6) k/uL RBC 4.08 (3.80-5.40) m/uL Hgb 12.6 (11.4-16.0) gm/dL Hct 38.7 (34.0-46.0) % MCV 94.9 (80.0-100.0) fL MCH 30.8 (25.0-35.0) pg MCHC 32.4 (31.0-37.0) g/dL RDW 13.6 (11.5-15.5) % Plt Count 326 (150-450) k/uL MPV 7.7 Neutrophils % 76 % Lymphocytes % 16 % Monocytes % 4 % Eosinophils % 2 % Basophils % 0 % Neutrophils # 6.1 (1.3-7.7) k/uL Lymphocytes # 1.3 (1.0-4.8) k/uL Monocytes # 0.4 (0-1.0) k/uL Eosinophils # 0.2 (0-0.7) k/uL Basophils # 0.0 (0-0.2) k/uL Sodium 140 (137-145) mmol/L Potassium 4.3 (3.5-5.1) mmol/L Chloride 109 H (98-107) mmol/L Carbon Dioxide 23 (22-30) mmol/L Anion Gap 8 mmol/L BUN 17 (7-17) mg/dL Creatinine 0.72 (0.52-1.04) mg/dL Est GFR (CKD-EPI)AfAm >90 (>60 ml/min/1.73 sqM) Est GFR (CKD-EPI)NonAf >90 (>60 ml/min/1.73 sqM) Glucose 109 H (74-99) mg/dL Calcium 9.7 (8.4-10.2) mg/dL Total Bilirubin 0.3 (0.2-1.3) mg/dL AST 28 (14-36) U/L ALT 23 (4-34) U/L Alkaline Phosphatase 41 (38-126) U/L Total Protein 6.8 (6.3-8.2) g/dL Albumin 4.1 (3.5-5.0) g/dL Amylase 71 (30-110) U/L Lipase 158 (23-300) U/L Urine Color Colorless Urine Appearance Cloudy H (Clear) Urine pH 7.0 (5.0-8.0) Ur Specific [place] 1.005 (1.001-1.035) Urine Protein Negative (Negative) Urine Glucose (UA) Negative (Negative) Urine Ketones Negative (Negative) Urine Blood Moderate H (Negative) Urine Nitrite Negative (Negative) Urine Bilirubin Negative (Negative) Urine Urobilinogen <2.0 (<2.0) mg/dL Ur Leukocyte Esterase Negative (Negative) Urine RBC 3 (0-5) /hpf Urine WBC 1 (0-5) /hpf Ur Squamous Epith Cells 5 H (0-4) /hpf Disposition Clinical Impression: Abdominal pain, Musculoskeletal back pain Disposition: HOME SELF-CARE Condition: Good Instructions (If sedation given, give patient instructions): Abdominal Pain (ED), Back Pain (ED) Is patient prescribed a controlled substance at d/c from ED?: No Referrals: Shakeel Levin MD [Primary Care Provider] - 1-2 days Lizandro Greenberg MD [STAFF PHYSICIAN] - 1-2 days Time of Disposition: 10:00
[2023-12-14] MEDS: KETOROLAC 15 MG/ML 1 ML VIAL IVP STA (08:16)
[2023-12-14 08:32] LABS: Basophils % (A) 0 %; Eosinophils # (A) 0.2 k/uL (0-0.7); Eosinophils % (A) 2 %; HCT 38.7 % (34.0-46.0); HGB 12.6 gm/dL (11.4-16.0); Lymphocytes # (A) 1.3 k/uL (1.0-4.8); Lymphocytes % (A) 16 %; MCH 30.8 pg (25.0-35.0); MCHC 32.4 g/dL (31.0-37.0); MCV 94.9 fL (80.0-100.0); Mean Platelet Volume 7.7; Monocytes # (A) 0.4 k/uL (0-1.0); Monocytes % (A) 4 %; Neutrophils # (A) 6.1 k/uL (1.3-7.7); Neutrophils % (A) 76 %; Platelet Count 326 k/uL (150-450); RBC 4.08 m/uL (3.80-5.40); RDW 13.6 % (11.5-15.5)
[2023-12-14] MEDS: ORPHENADRINE 30 MG/ML 2 ML VIAL IVP STA (08:33)
[2023-12-14 08:36] LABS: Appearance,Urine Cloudy (Clear); Bilirubin,Urine Negative (Negative); Blood,Urine Moderate (Negative); Color,Urine Colorless; Glucose,Urine (UA) Negative (Negative); Ketones,Urine Negative (Negative); Leukocyte Esterase,Urine Negative (Negative); Nitrite,Urine Negative (Negative); Protein,Urine Negative (Negative); RBC,Urine 3 /hpf (0-5); Specific Gravity,Urine 1.005 (1.001-1.035); Squamous Epithelial Cell,Urine 5 /hpf (0-4); Urobilinogen,Urine <2.0 mg/dL (<2.0); WBC,Urine 1 /hpf (0-5)
[2023-12-14 08:41] LABS: ALT 23 U/L (4-34); AST 28 U/L (14-36); African American GFR (CKD) >90 (>60 ml/min/1.73 sqM); Albumin 4.1 g/dL (3.5-5.0); Alkaline Phosphatase 41 U/L (38-126); Amylase 71 U/L (30-110); Anion Gap 8 mmol/L; Blood Urea Nitrogen 17 mg/dL (7-17); Calcium 9.7 mg/dL (8.4-10.2); Carbon Dioxide 23 mmol/L (22-30); Chloride 109 mmol/L (98-107); Glucose 109 mg/dL (74-99); Lipase 158 U/L (23-300); Non-African American GFR(CKD) >90 (>60 ml/min/1.73 sqM); Potassium 4.3 mmol/L (3.5-5.1); Sodium 140 mmol/L (137-145); Total Bilirubin 0.3 mg/dL (0.2-1.3); Total Protein 6.8 g/dL (6.3-8.2)
[2023-12-14] MEDS: HYDROmorphone 0.5 MG/0.5 ML SYRINGE IVP STA (09:28)
[2023-12-14] MEDS: diazePAM 5 MG TAB PO STA (10:08)
[2023-12-14 10:10] VITALS: BP 149/84; PULSE 52; RESP 16; TEMP 98
== END 2023-12-14 10:08 | disposition home or self-care (01) ==
LOC: EC 07:05
CPT/HCPCS: 36415; 80053; 81001; 82150; 83690; 85025; 96374; 96375; 99284

== ENCOUNTER 2023-12-14 15:17 | Emergency (ER) | payer OTHER ==
[2023-12-14 15:27] VITALS: RESP 18
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
[2023-12-14] MEDS: ACETAMINOPHEN IV (For NPO) 1,000 MG in EMPTY BAG 1 BAG IVPB STA (16:20)
[2023-12-14] MEDS: SODIUM CHLORIDE 0.9% 500 ML 500 ML IV STA (16:22)
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
[2023-12-14 17:03] LABS: Appearance,Urine Clear (Clear); Bacteria,Urine Rare /hpf; Bilirubin,Urine Negative (Negative); Blood,Urine Moderate (Negative); Color,Urine Colorless; Glucose,Urine (UA) Negative (Negative); Ketones,Urine Negative (Negative); Leukocyte Esterase,Urine Negative (Negative); Mucus,Urine Rare /hpf; Nitrite,Urine Negative (Negative); PH, Urine 6.5 (5.0-8.0); Protein,Urine Negative (Negative); RBC,Urine 7 /hpf (0-5); Specific Gravity,Urine 1.006 (1.001-1.035); Squamous Epithelial Cell,Urine 4 /hpf (0-4); Urobilinogen,Urine <2.0 mg/dL (<2.0)
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
[2023-12-14 18:11] VITALS: BP 137/91; PULSE 51; TEMP 97.9
== END 2023-12-14 18:12 | disposition home or self-care (01) ==
LOC: EC 15:17
CPT/HCPCS: 70450; 71045; 72125; 72170; 81001; 96365; 99285

== ENCOUNTER 2023-12-19 10:56 | Emergency (ER) | payer OTHER ==
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
[2023-12-19 11:37] LABS: Basophils # (A) 0.1 k/uL (0-0.2); Basophils % (A) 1 %; Eosinophils # (A) 0.1 k/uL (0-0.7); Eosinophils % (A) 1 %; HCT 43.5 % (34.0-46.0); HGB 13.9 gm/dL (11.4-16.0); Lymphocytes # (A) 1.8 k/uL (1.0-4.8); Lymphocytes % (A) 20 %; MCH 30.4 pg (25.0-35.0); MCHC 31.8 g/dL (31.0-37.0); MCV 95.3 fL (80.0-100.0); Mean Platelet Volume 7.4; Monocytes # (A) 0.3 k/uL (0-1.0); Monocytes % (A) 4 %; Neutrophils # (A) 6.6 k/uL (1.3-7.7); Neutrophils % (A) 74 %; Platelet Count 370 k/uL (150-450); RBC 4.57 m/uL (3.80-5.40); RDW 13.4 % (11.5-15.5)
[2023-12-19] MEDS: KETOROLAC 15 MG/ML 1 ML VIAL IVP STA ×2 (11:48→14:25)
[2023-12-19] MEDS: HYDROmorphone 1 MG/ML 1 ML SYRINGE IVP STA ×2 (11:49→13:10)
[2023-12-19] MEDS: SODIUM CHLORIDE 0.9% 1,000 ML IV STA (11:49)
[2023-12-19 11:51] LABS: Appearance,Urine Cloudy (Clear); Bilirubin,Urine Negative (Negative); Blood,Urine Moderate (Negative); Color,Urine Colorless; Glucose,Urine (UA) Negative (Negative); Ketones,Urine Negative (Negative); Leukocyte Esterase,Urine Negative (Negative); Mucus,Urine Rare /hpf; Nitrite,Urine Negative (Negative); Protein,Urine Trace (Negative); RBC,Urine 22 /hpf (0-5); Specific Gravity,Urine 1.007 (1.001-1.035); Squamous Epithelial Cell,Urine 5 /hpf (0-4); Urobilinogen,Urine <2.0 mg/dL (<2.0); WBC,Urine 1 /hpf (0-5)
[2023-12-19 12:06] LABS: Amphetamine Screen,Urine Not Detected (NotDetected); Barbiturate Screen,Urine Not Detected (NotDetected); Benzodiazepines Screen,Urine Detected (NotDetected); Cocaine Screen,Urine Not Detected (NotDetected); Methadone Screen, Urine Not Detected (NotDetected); Opiate Screen,Urine Not Detected (NotDetected); Oxycodone Screen, Urine Detected (NotDetected); Phencyclidine Screen,Urine Not Detected (NotDetected); Tricyclic Antidepressant,Urine Not Detected (NotDetected); Urn Cannabinoid Scrn Detected (NotDetected)
[2023-12-19 12:30] LABS: ALT 27 U/L (4-34); AST 26 U/L (14-36); African American GFR (CKD) >90 (>60 ml/min/1.73 sqM); Alcohol <10 mg/dL; Alkaline Phosphatase 55 U/L (38-126); Anion Gap 8 mmol/L; Blood Urea Nitrogen 12 mg/dL (7-17); Calcium 10.9 mg/dL (8.4-10.2); Carbon Dioxide 23 mmol/L (22-30); Chloride 108 mmol/L (98-107); Glucose 95 mg/dL (74-99); Lithium 0.3 mmol/L; Non-African American GFR(CKD) >90 (>60 ml/min/1.73 sqM); Potassium 4.5 mmol/L (3.5-5.1); Sodium 139 mmol/L (137-145); Total Bilirubin 0.5 mg/dL (0.2-1.3); Total Protein 7.9 g/dL (6.3-8.2)
[2023-12-19] MEDS: LORazepam 2 MG/ML INJ IV STA (12:54)
[2023-12-19 12:56] LABS: INR 0.9 (<1.2); Partial Thromboplastin Time 23.8 sec (22.0-30.0); Prothrombin Time 10.3 sec (10.0-12.5)
--- NOTE | 2023-12-19 13:50 | CT ---
EXAMINATION TYPE: CT chest angio for PE CT DLP: 222.4 mGycm, Automated exposure control for dose reduction was used. DATE OF EXAM: 12/19/2023 1:40 PM COMPARISON: Chest radiograph from 12/14/23 CLINICAL INDICATION:Female, 38 years old with history of KADE, elevated d-dimer; PE TECHNIQUE/CONTRAST: CTA scan of the thorax is performed without and with IV Contrast, patient injected with 100 ml mL of Isovue 370, pulmonary embolism protocol. MIP images are created and reviewed. FINDINGS: Pulmonary Artery: There is no evidence for a filling defect within the pulmonary vasculature to sugge st acute pulmonary embolism. The pulmonary artery is of normal size. Reflux of contrast into the IVC and hepatic veins. Lungs/Pleura: No evidence of focal consolidation, pleural effusion or pneumothorax. Airway: Large airways are patent. Heart: Heart is within normal limits for size.. No pericardial effusion. Vasculature: No evidence of aortic aneurysm. Mediastinum: No evidence of adenopathy. Musculoskeletal: No acute osseous abnormalities Soft Tissues: Unremarkable. Lower neck: No significant findings. Upper Abdomen: No significant findings. IMPRESSION: No evidence of pulmonary embolism or thoracic process. [facility], , 12/19/2023 1:47 PM
[2023-12-19] MEDS: ACET/COD 300 MG/30 MG STARTER PACK 6 TAB BTL PO STA (14:22)
[2023-12-19] MEDS: IBUPROFEN 600 MG STARTER PACK 4 TAB BTL PO STA (14:22)
[2023-12-19] MEDS: ACETAMINOPHEN TAB 500 MG TAB PO STA (14:23)
[2023-12-19] MEDS: DEXAMETHASONE SOD PHOSPHATE 10 MG/ML 1 ML VIAL IVP STA (14:25)
[2023-12-19 14:38] VITALS: BP 128/78; PULSE 71; RESP 17
[2023-12-19 14:42] VITALS: TEMP 98.2
== END 2023-12-19 14:48 | disposition home or self-care (01) ==
LOC: EC 10:56
CPT/HCPCS: 36415; 71275; 80053; 80178; 80306; 80320; 81001; 81025; 83605; 83735; 84484; 85025; 85379; 85610; 85730; 93005; 96361; 96374; 96375; 96376; 99285

== ENCOUNTER 2023-12-23 17:48 | Emergency (ER) | payer OTHER ==
[2023-12-23 18:18] VITALS: TEMP 98.1
--- NOTE | 2023-12-23 18:26 | ED ---
General Adult HPI - General Chief complaint: Seizure Stated complaint: Seizure Time Seen by Provider: 12/23/23 17:51 Source: patient, EMS, RN notes reviewed Mode of arrival: EMS Limitations: no limitations - History of Present Illness Initial comments: Patient is a 38-year-old female presenting to the emergency department not feeling well. Patient states she has been anxious lately and has a history of anxiety induced seizures. Patient admits to drinking alcohol today. Patient complains of feeling nauseated. Patient states she also has a history of regular seizures however has been years since she had a regular seizure. Patient reportedly had some sort of seizure type activity prior to arrival. Patient denies any injury. Patient does have history of previous imaging. - Related Data Home Medications Medication Instructions Recorded Confirmed Desvenlafaxine [Pristiq ER] 100 mg PO DAILY 12/14/23 12/19/23 Dicyclomine [Bentyl] 20 mg PO DIRECTED 12/14/23 12/19/23 Linaclotide [Linzess] 72 mcg PO DAILY PRN 12/14/23 12/19/23 [place] Carbonate ER [Lithobid] 450 mg PO HS 12/14/23 12/19/23 Lurasidone [Latuda] 20 mg PO DAILY 12/14/23 12/19/23 Meloxicam [Mobic] 15 mg PO DIRECTED PRN 12/14/23 12/19/23 diazePAM [Valium] 2 mg PO DIRECTED PRN 12/14/23 12/19/23 oxyCODONE-APAP 5-325MG [Percocet 1 tab PO DIRECTED PRN 12/14/23 12/19/23 5-325 mg] Previous Rx's Medication Instructions Recorded Atorvastatin [Lipitor] 40 mg PO HS 30 Days #30 tab 12/20/22 methocarbamoL [Robaxin-750] 1,500 mg PO TID PRN #30 tab 12/19/23 Allergies Allergy/AdvReac Type Severity Reaction Status Date / Time phenytoin [From Dilantin] Allergy Rash/Hives Verified 12/23/23 18:41 Sulfa (Sulfonamide Allergy Swelling Verified 12/23/23 18:41 Antibiotics) morphine AdvReac Swelling Verified 12/23/23 18:41 Review of Systems ROS Statement: Those systems with pertinent positive or pertinent negative responses have been documented in the HPI. ROS Other: All systems not noted in ROS Statement are negative. Constitutional: Denies: fever Eyes: Denies: eye pain Respiratory: Denies: dyspnea Cardiovascular: Denies: chest pain Gastrointestinal: Reports: nausea Neurological: Denies: weakness Past Medical History Past Medical History: Cancer, GERD/Reflux, Seizure Disorder Additional Past Medical History / Comment(s): cervical cancer. History of Any Multi-Drug Resistant Organisms: None Reported Past Surgical History: Orthopedic Surgery, Uterine Ablation Additional Past Surgical History / Comment(s): colonoscopy, EGD. cyst removal on uterus and neck surgery, LEEP Past Psychological History: Anxiety, Depression Smoking Status: Vaper Past Alcohol Use History: Occasional Past Drug Use History: Marijuana General Exam Limitations: no limitations General appearance: alert, in no apparent distress Head exam: Present: atraumatic, normocephalic Eye exam: Present: normal appearance, PERRL, EOMI ENT exam: Present: normal oropharynx Neck exam: Present: normal inspection. Absent: tenderness Respiratory exam: Present: normal lung sounds bilaterally Cardiovascular Exam: Present: regular rate, normal rhythm GI/Abdominal exam: Present: soft. Absent: tenderness Extremities exam: Present: normal inspection Neurological exam: Present: alert, CN II-XII intact. Absent: motor sensory deficit Expanded Neurological exam: Present: protecting the airway Motor strength exam: RUE: 5, LUE: 5, RLE: 5, LLE: 5 Eye Response: (4) open spontaneously Motor Response: (6) obeys commands Verbal Response: (5) oriented Psychiatric exam: Present: normal affect, normal mood Skin exam: Present: normal color Course Vital Signs 12/23/23 12/23/23 17:57 19:50 Temperature 98.1 F Pulse Rate 91 78 Respiratory 22 18 Rate Blood Pressure 135/88 118/82 O2 Sat by Pulse 97 99 Oximetry EKG Findings - EKG Results: EKG: interpreted by ERMD (T wave inversion in lead III), sinus rhythm, normal axis, normal QRS Medical Decision Making - Medical Decision Making Was pt. sent in by a medical professional or institution (, PA, CIVIL DRAFTER, urgent care, hospital, or [facility]...) When possible be specific @ -No Did you speak to anyone other than the patient for history (EMS, parent, family, police, friend...)? What history was obtained from this source @ -No Did you review nursing and triage notes (agree or disagree)? Why? @ -I reviewed and agree with nursing and triage notes Were old charts reviewed (outside hosp., previous admission, EMS record, old EKG, old radiological studies, urgent care reports/EKG's, [facility] records)? Report findings @ -Previous imaging reviewed Differential Diagnosis (chest pain, altered mental status, abdominal pain women, abdominal pain men, vaginal bleeding, weakness, fever, dyspnea, syncope, headache, dizziness, GI bleed, back pain, seizure, CVA, palpatations, mental health, musculoskeletal)? @ -Differential Seizure: Recurrent seizure disorder, febrile seizure, alcohol withdrawal, stimulants, meningitis, encephalitis, intercranial hemorrhage, intracranial tumor, stroke, eclampsia, thyrotoxicosis, hypocalcemia, hyponatremia, hypernatremia, hypomagnesemia, psychogenic, this is not meant to be an all-inclusive list. EKG interpreted by me (3pts min.). @ -As above X-rays interpreted by me (1pt min.). @ -None done CT interpreted by me (1pt min.). @ -None done U/S interpreted by me (1pt. min.). @ -None done What testing was considered but not performed or refused? (CT, X-rays, U/S, labs)? Why? @ -Considered imaging of the brain however patient does have history of previou s seizures and previous imaging What meds were considered but not given or refused? Why? @ -None Did you discuss the management of the patient with other professionals (professionals i.e. DrKatarzyna, PA, CIVIL DRAFTER, lab, RT, psych nurse, social media coordinator, animal behaviorist, teacher, public records officer, correctional counselor/case manager)? Give summary @ -No Was smoking cessation discussed for >3mins.? @ -No Was critical care preformed (if so, how long)? @ -No Were there social determinants of health that impacted care today? How? (Homelessness, low income, unemployed, alcoholism, drug addiction, transportation, low edu. Level, literacy, decrease access to med. care, penitentiary, rehab)? @ -No Was there de-escalation of care discussed even if they declined (Discuss DNR or withdrawal of care, Hospice)? DNR status @ -No What co-morbidities impacted this encounter? (DM, HTN, Smoking, COPD, CAD, Cancer, CVA, ARF, Chemo, Hep., AIDS, mental health diagnosis, sleep apnea, morbid obesity)? @ -History of seizures Was patient admitted / discharged? Hospital course, mention meds given and route, prescriptions, significant lab abnormalities, going to OR and other pertinent info. @ -Patient presents with questionable seizure prior to arrival. Patient admits to alcohol and does have an alcohol intoxication as well as polysubstance is on board. Patient will be discharged and recommended to discontinue substances. Undiagnosed new problem with uncertain prognosis? @ -No Drug Therapy requiring intensive monitoring for toxicity (Heparin, Nitro, Insulin, Cardizem)? @ -No Were any procedures done? @ -No Diagnosis/symptom? @ -Alcohol intoxication, polysubstance ingestion, seizure like activity Acute, or Chronic, or Acute on Chronic? @ -Acute, acute, acute Uncomplicated (without systemic symptoms) or Complicated (systemic symptoms)? @ -Default Side effects of treatment? @ -No Exacerbation, Progression, or Severe Exacerbation? @ -No Poses a threat to life or bodily function? How? (Chest pain, [place], [place], pneumonia, PE, COPD, DKA, ARF, appy, cholecystitis, CVA, Diverticulitis, Homicidal, Suicidal, threat to staff... and all critical care pts) @ -No - Lab Data Result diagrams: 12/23/23 18:43 12/23/23 18:43 Lab Results 12/23/23 12/23/23 12/23/23 Range/Units 18:43 18:43 18:43 WBC 10.5 (3.8-10.6) k/uL RBC 4.55 (3.80-5.40) m/uL Hgb 13.7 (11.4-16.0) gm/dL Hct 42.6 (34.0-46.0) % MCV 93.6 (80.0-100.0) fL MCH 30.2 (25.0-35.0) pg MCHC 32.3 (31.0-37.0) g/dL RDW 13.3 (11.5-15.5) % Plt Count 401 (150-450) k/uL MPV 7.5 Neutrophils % 57 % Lymphocytes % 33 % Monocytes % 4 % Eosinophils % 2 % Basophils % 1 % Neutrophils # 5.9 (1.3-7.7) k/uL Lymphocytes # 3.5 (1.0-4.8) k/uL Monocytes # 0.4 (0-1.0) k/uL Eosinophils # 0.2 (0-0.7) k/uL Basophils # 0.1 (0-0.2) k/uL Sodium 143 (137-145) mmol/L Potassium 4.1 (3.5-5.1) mmol/L Chloride 110 H (98-107) mmol/L Carbon Dioxide 22 (22-30) mmol/L Anion Gap 11 mmol/L BUN 12 (7-17) mg/dL Creatinine 0.72 (0.52-1.04) mg/dL Est GFR (CKD-EPI)AfAm >90 (>60 ml/min/1.73 sqM) Est GFR (CKD-EPI)NonAf >90 (>60 ml/min/1.73 sqM) Glucose 91 (74-99) mg/dL Calcium 10.2 (8.4-10.2) mg/dL Magnesium 2.1 (1.6-2.3) mg/dL Total Bilirubin 0.5 (0.2-1.3) mg/dL AST 26 (14-36) U/L ALT 25 (4-34) U/L Alkaline Phosphatase 50 (38-126) U/L Total Protein 7.7 (6.3-8.2) g/dL Albumin 5.0 (3.5-5.0) g/dL Urine Color Colorless Urine Appearance Clear (Clear) Urine pH 6.5 (5.0-8.0) Ur Specific [place] 1.003 (1.001-1.035) Urine Protein Negative (Negative) Urine Glucose (UA) Negative (Negative) Urine Ketones Negative (Negative) Urine Blood Small H (Negative) Urine Nitrite Negative (Negative) Urine Bilirubin Negative (Negative) Urine Urobilinogen <2.0 (<2.0) mg/dL Ur Leukocyte Esterase Negative (Negative) Urine RBC 1 (0-5) /hpf Ur Squamous Epith Cells 1 (0-4) /hpf Urine Opiates Screen Not Detected (NotDetected) Ur Oxycodone Screen Not Detected (NotDetected) Urine Methadone Screen Not Detected (NotDetected) Ur Barbiturates Screen Not Detected (NotDetected) U Tricyclic Antidepress Not Detected (NotDetected) Ur Phencyclidine Scrn Not Detected (NotDetected) Ur Amphetamines Screen Not Detected (NotDetected) U Methamphetamines Scrn Not Detected (NotDetected) U Benzodiazepines Scrn Detected H (NotDetected) Urine Cocaine Screen Detected H (NotDetected) U Marijuana (THC) Screen Detected H (NotDetected) Serum Alcohol 171 mg/dL Disposition Clinical Impression: Seizure-like activity, Alcohol intoxication, Ingestion of substance Disposition: HOME SELF-CARE Condition: Stable Instructions (If sedation given, give patient instructions): Recurrent Seizures in Adults (ED) Additional Instructions: Please discontinue alcohol and nonprescribed substances. Please follow-up with your primary care physician in the next day or 2 for recheck. Return for recurrent seizures, change in mental status, worsening or changing symptoms or other concerns. Is patient prescribed a controlled substance at d/c from ED?: No Referrals: Shakeel Levin MD [STAFF PHYSICIAN] - 1-2 days Forms: Area PCPs Time of Disposition: 20:34
[2023-12-23] MEDS: ONDANSETRON 4 MG/2 ML VIAL IM STA (18:36)
[2023-12-23] MEDS: LORazepam 2 MG/ML INJ IV STA ×2 (18:40→19:55)
[2023-12-23] MEDS: ONDANSETRON 4 MG/2 ML VIAL IVP STA (18:44)
[2023-12-23] MEDS: FAMOTIDINE 20 MG/2 ML VIAL IV STA (18:48)
[2023-12-23 19:12] LABS: Appearance,Urine Clear (Clear); Bilirubin,Urine Negative (Negative); Blood,Urine Small (Negative); Color,Urine Colorless; Glucose,Urine (UA) Negative (Negative); Ketones,Urine Negative (Negative); Leukocyte Esterase,Urine Negative (Negative); Nitrite,Urine Negative (Negative); PH, Urine 6.5 (5.0-8.0); Protein,Urine Negative (Negative); RBC,Urine 1 /hpf (0-5); Specific Gravity,Urine 1.003 (1.001-1.035); Squamous Epithelial Cell,Urine 1 /hpf (0-4); Urobilinogen,Urine <2.0 mg/dL (<2.0)
[2023-12-23 19:14] LABS: Basophils # (A) 0.1 k/uL (0-0.2); Basophils % (A) 1 %; Eosinophils # (A) 0.2 k/uL (0-0.7); Eosinophils % (A) 2 %; HCT 42.6 % (34.0-46.0); HGB 13.7 gm/dL (11.4-16.0); Lymphocytes # (A) 3.5 k/uL (1.0-4.8); Lymphocytes % (A) 33 %; MCH 30.2 pg (25.0-35.0); MCHC 32.3 g/dL (31.0-37.0); MCV 93.6 fL (80.0-100.0); Mean Platelet Volume 7.5; Monocytes # (A) 0.4 k/uL (0-1.0); Monocytes % (A) 4 %; Neutrophils # (A) 5.9 k/uL (1.3-7.7); Neutrophils % (A) 57 %; Platelet Count 401 k/uL (150-450); RBC 4.55 m/uL (3.80-5.40); RDW 13.3 % (11.5-15.5); WBC 10.5 k/uL (3.8-10.6)
[2023-12-23 19:18] LABS: ALT 25 U/L (4-34); AST 26 U/L (14-36); African American GFR (CKD) >90 (>60 ml/min/1.73 sqM); Alkaline Phosphatase 50 U/L (38-126); Anion Gap 11 mmol/L; Blood Urea Nitrogen 12 mg/dL (7-17); Calcium 10.2 mg/dL (8.4-10.2); Carbon Dioxide 22 mmol/L (22-30); Chloride 110 mmol/L (98-107); Glucose 91 mg/dL (74-99); Magnesium 2.1 mg/dL (1.6-2.3); Non-African American GFR(CKD) >90 (>60 ml/min/1.73 sqM); Potassium 4.1 mmol/L (3.5-5.1); Sodium 143 mmol/L (137-145); Total Bilirubin 0.5 mg/dL (0.2-1.3); Total Protein 7.7 g/dL (6.3-8.2)
[2023-12-23 19:22] LABS: Alcohol 171 mg/dL
[2023-12-23 19:24] LABS: Amphetamine Screen,Urine Not Detected (NotDetected); Barbiturate Screen,Urine Not Detected (NotDetected); Benzodiazepines Screen,Urine Detected (NotDetected); Cocaine Screen,Urine Detected (NotDetected); Methadone Screen, Urine Not Detected (NotDetected); Opiate Screen,Urine Not Detected (NotDetected); Oxycodone Screen, Urine Not Detected (NotDetected); Phencyclidine Screen,Urine Not Detected (NotDetected); Tricyclic Antidepressant,Urine Not Detected (NotDetected); Urn Cannabinoid Scrn Detected (NotDetected)
[2023-12-23 19:53] VITALS: RESP 18
[2023-12-23] MEDS: ACETAMINOPHEN TAB 325 MG TAB PO STA (21:06)
[2023-12-23 21:17] VITALS: BP 123/80; PULSE 92
== END 2023-12-23 21:14 | disposition home or self-care (01) ==
LOC: EC 17:48
CPT/HCPCS: 36415; 80053; 80306; 80320; 81001; 83735; 85025; 93005; 99285

== ENCOUNTER 2024-01-01 16:12 | Emergency (ER) | payer OTHER ==
[2024-01-01 16:47] VITALS: BP 114/76; PULSE 79; RESP 22; TEMP 98.4
--- NOTE | 2024-01-01 17:32 | ED ---
General Adult HPI - General Chief complaint: Seizure Stated complaint: leg swelling,chest pain Time Seen by Provider: 01/01/24 17:16 Source: patient, RN/MD Mode of arrival: ambulatory - History of Present Illness Initial comments: 38-year-old female with history of seizure disorder, anxiety, polysubstance abuse presenting with chief complaint of swelling to the hands and feet. States that this has been ongoing for 3 days. She went to urgent care earlier today who advised her to come here. She also reports that she has been having some pain in the thoracic back area mainly on the left side. She denies any injury or trauma. Pain is worse on palpation and with movement. States that earlier she was feeling anxious and having some chest tightness as a result. No diffic ulty breathing. No abdominal pain nausea or vomiting. While in triage the patient did display some seizure-like activity. During my first interaction with her shortly thereafter she is A&O x 3, active, no postictal phase. She initially reports that this is her first seizure in 14 years. I then asked her about her 2 recent visits for seizure activity and she reports that those were actually her first seizures in 14 years. She is on no antiseizure medication. - Related Data Home Medications Medication Instructions Recorded Confirmed Desvenlafaxine [Pristiq ER] 100 mg PO DAILY 12/14/23 01/01/24 [place] Carbonate ER [Lithobid] 450 mg PO HS 12/14/23 01/01/24 Lurasidone [Latuda] 20 mg PO DAILY 12/14/23 01/01/24 diazePAM [Valium] 2 mg PO DAILY PRN 12/14/23 01/01/24 Allergies Allergy/AdvReac Type Severity Reaction Status Date / Time morphine Allergy Swelling Verified 01/01/24 18:11 phenytoin [From Dilantin] Allergy Rash/Hives Verified 01/01/24 18:11 Sulfa (Sulfonamide Allergy Swelling Verified 01/01/24 18:11 Antibiotics) Review of Systems ROS Statement: Those systems with pertinent positive or pertinent negative responses have been documented in the HPI. ROS Other: All systems not noted in ROS Statement are negative. Past Medical History Past Medical History: Cancer, GERD/Reflux, Seizure Disorder Additional Past Medical History / Comment(s): cervical cancer. History of Any Multi-Drug Resistant Organisms: None Reported Past Surgical History: Orthopedic Surgery, Uterine Ablation Additional Past Surgical History / Comment(s): colonoscopy, EGD. cyst removal on uterus and neck surgery, LEEP Past Psychological History: Anxiety, Depression Smoking Status: Vaper Past Alcohol Use History: Occasional Past Drug Use History: Marijuana General Exam Limitations: no limitations General appearance: alert, in no apparent distress Head exam: Present: atraumatic, normocephalic, normal inspection Eye exam: Present: normal appearance, PERRL, EOMI Neck exam: Present: normal inspection. Absent: meningismus Respiratory exam: Present: normal lung sounds bilaterally. Absent: respiratory distress, wheezes, rales, rhonchi, stridor Cardiovascular Exam: Present: regular rate, normal rhythm, normal heart sounds. Absent: systolic murmur, diastolic murmur, rubs, gallop, clicks Extremities exam: Absent: pedal edema Neurological exam: Present: alert, oriented X3 Psychiatric exam: Present: normal affect, normal mood Skin exam: Present: warm, dry Course Vital Signs 01/01/24 01/01/24 16:39 16:43 Temperature 98.4 F Pulse Rate 80 79 Respiratory 22 Rate Blood Pressure 114/76 O2 Sat by Pulse 100 100 Oximetry Medical Decision Making - Medical Decision Making Was pt. sent in by a medical professional or institution (, PA, ST[employer] AND PROS[employer] MIXER, urgent care, hospital, or snf...) When possible be specific @ -No Did you speak to anyone other than the patient for history (EMS, parent, family, police, friend...)? What history was obtained from this source @ -No Did you review nursing and triage notes (agree or disagree)? Why? @ -I reviewed and agree with nursing and triage notes Were old charts reviewed (outside hosp., previous admission, EMS record, old EKG, old radiological studies, urgent care reports/EKG's, snf records)? Report findings @ -Reviewed recent visits, patient was here with the same complaint Differential Diagnosis (chest pain, altered mental status, abdominal pain women, abdominal pain men, vaginal bleeding, weakness, fever, dyspnea, syncope, hea dache, dizziness, GI bleed, back pain, seizure, CVA, palpatations, mental health, musculoskeletal)? @ -MDM Differential Seizure: Recurrent seizure disorder, febrile seizure, alcohol withdrawal, stimulants, meningitis, encephalitis, intercranial hemorrhage, intracranial tumor, stroke, eclampsia, thyrotoxicosis, hypocalcemia, hyponatremia, hypernatremia, hypomagnesemia, psychogenic this is not meant to be an all-inclusive list EKG interpreted by me (3pts min.). @ -EKG shows sinus rhythm with short NE interval. Ventricular rate 77. NE interval 118. QRS 86. QT 365. QTc 397. No ischemic changes. X-rays interpreted by me (1pt min.). @ -Chest x-ray shows no acute process CT interpreted by me (1pt min.). @ -None done U/S interpreted by me (1pt. min.). @ -None done What testing was considered but not performed or refused? (CT, X-rays, U/S, labs)? Why? @ -None What meds were considered but not given or refused? Why? @ -None Did you discuss the management of the patient with other professionals (professionals i.e. , PA, ST[employer] PR[employer] MIXER, lab, RT, psych nurse, social professionals, sizer machine, teacher, landing signal officer, case hardener)? Give summary @ -No Was smoking cessation discussed for >3mins.? @ -No Was critical care preformed (if so, how long)? @ -No Were there social determinants of health that impacted care today? How? (Homelessness, low income, unemployed, alcoholism, drug addiction, transportation, low edu. Level, literacy, decrease access to med. care, senior living, rehab)? @ -No Was there de-escalation of care discussed even if they declined (Discuss DNR or withdrawal of care, Hospice)? DNR status @ -No What co-morbidities impacted this encounter? (DM, HTN, Smoking, COPD, CAD, [place] cer, CVA, ARF, Chemo, Hep., AIDS, mental health diagnosis, sleep apnea, morbid obesity)? @ -None Was patient admitted / discharged? Hospital course, mention meds given and route, prescriptions, significant lab abnormalities, going to OR and other pertinent info. @ -38-year-old female presenting with chief complaint of swelling in her hands and feet. While here she had some seizure-like activity in the triage goel. Patient has been here recently for seizures, does have history of polysubstance use. Immediately requesting pain and anxiety medication. History and physical examination are conducted. Lab work shows no leukocytosis or anemia. AST 39. Alkaline phosphatase 32. Glucose 69, patient is given orange juice. Urine shows signs of contamination, negative hCG. Urine toxicology positive for oxycodone, benzodiazepines, and marijuana. Serum alcohol less than 10. [place] is at therapeutic level of 0.7. Chest x-ray shows no acute process. Patient then began demanding to have her IV taken out so she can leave. Nursing staff had her sign out AGAINST MEDICAL ADVICE communicating to her that leaving prior to completion of workup and evaluation may result in or permanent injury. Patient is alert and oriented x 3 and able to make her own decisions, she signed out AGAINST MEDICAL ADVICE. Nursing staff informed her that she cannot drive for 6 months. My attending is Dr. Best. Undiagnosed new problem with uncertain prognosis? @ -No Drug Therapy requiring intensive monitoring for toxicity (Heparin, Nitro, Insulin, Cardizem)? @ -No Were any procedures done? @ -No Diagnosis/symptom? @ -Seizure Acute, or Chronic, or Acute on Chronic? @ -Acute Uncomplicated (without systemic symptoms) or Complicated (systemic symptoms)? @ -Uncomplicated Side effects of treatment? @ -No Exacerbation, Progression, or Severe Exacerbation? @ -No - Lab Data Result diagrams: 01/01/24 17:35 01/01/24 17:35 Lab Results 01/01/24 01/01/24 01/01/24 Range/Units 17:35 17:35 17:35 WBC 7.2 (3.8-10.6) k/uL RBC 3.82 (3.80-5.40) m/uL Hgb 11.6 (11.4-16.0) gm/dL Hct 36.6 (34.0-46.0) % MCV 96.0 (80.0-100.0) fL MCH 30.4 (25.0-35.0) pg MCHC 31.7 (31.0-37.0) g/dL RDW 13.6 (11.5-15.5) % Plt Count 275 (150-450) k/uL MPV 7.4 Neutrophils % 67 % Lymphocytes % 23 % Monocytes % 5 % Eosinophils % 2 % Basophils % 0 % Neutrophils # 4.9 (1.3-7.7) k/uL Lymphocytes # 1.6 (1.0-4.8) k/uL Monocytes # 0.4 (0-1.0) k/uL Eosinophils # 0.2 (0-0.7) k/uL Basophils # 0.0 (0-0.2) k/uL Sodium 136 L (137-145) mmol/L Potassium 4.3 (3.5-5.1) mmol/L Chloride 109 H (98-107) mmol/L Carbon Dioxide 25 (22-30) mmol/L Anion Gap 2 mmol/L BUN 10 (7-17) mg/dL Creatinine 0.52 (0.52-1.04) mg/dL Est GFR (CKD-EPI)AfAm >90 (>60 ml/min/1.73 sqM) Est GFR (CKD-EPI)NonAf >90 (>60 ml/min/1.73 sqM) Glucose 69 L (74-99) mg/dL Calcium 8.9 (8.4-10.2) mg/dL Magnesium 1.9 (1.6-2.3) mg/dL Total Bilirubin 0.6 (0.2-1.3) mg/dL AST 39 H (14-36) U/L ALT 28 (4-34) U/L Alkaline Phosphatase 32 L (38-126) U/L Total Protein 6.3 (6.3-8.2) g/dL Albumin 3.7 (3.5-5.0) g/dL Urine Color Urine Appearance (Clear) Urine pH (5.0-8.0) Ur Specific [place] (1.001-1.035) Urine Protein (Negative) Urine Glucose (UA) (Negative) Urine Ketones (Negative) Urine Blood (Negative) Urine Nitrite (Negative) Urine Bilirubin (Negative) Urine Urobilinogen (<2.0) mg/dL Ur Leukocyte Esterase (Negative) Urine RBC (0-5) /hpf Urine WBC (0-5) /hpf Ur Squamous Epith Cells (0-4) /hpf Urine Mucus (None) /hpf Urine HCG, Qual (Not Detectd) Urine Opiates Screen Not Detected (NotDetected) Ur Oxycodone Screen Detected H (NotDetected) Urine Methadone Screen Not Detected (NotDetected) Ur Barbiturates Screen Not Detected (NotDetected) U Tricyclic Antidepress Not Detected (NotDetected) Ur Phencyclidine Scrn Not Detected (NotDetected) Ur Amphetamines Screen Not Detected (NotDetected) U Methamphetamines Scrn Not Detected (NotDetected) U Benzodiazepines Scrn Detected H (NotDetected) [place] 0.7 mmol/L Urine Cocaine Screen Not Detected (NotDetected) U Marijuana (THC) Screen Detected H (NotDetected) Serum Alcohol <10 mg/dL 01/01/24 01/01/24 Range/Units 17:35 17:35 WBC (3.8-10.6) k/uL RBC (3.80-5.40) m/uL Hgb (11.4-16.0) gm/dL Hct (34.0-46.0) % MCV (80.0-100.0) fL MCH (25.0-35.0) pg MCHC (31.0-37.0) g/dL RDW (11.5-15.5) % Plt Count (150-450) k/uL MPV Neutrophils % % Lymphocytes % % Monocytes % % Eosinophils % % Basophils % % Neutrophils # (1.3-7.7) k/uL Lymphocytes # (1.0-4.8) k/uL Monocytes # (0-1.0) k/uL Eosinophils # (0-0.7) k/uL Basophils # (0-0.2) k/uL Sodium (137-145) mmol/L Potassium (3.5-5.1) mmol/L Chloride (98-107) mmol/L Carbon Dioxide (22-30) mmol/L Anion Gap mmol/L BUN (7-17) mg/dL Creatinine (0.52-1.04) mg/dL Est GFR (CKD-EPI)AfAm (>60 ml/min/1.73 sqM) Est GFR (CKD-EPI)NonAf (>60 ml/min/1.73 sqM) Glucose (74-99) mg/dL Calcium (8.4-10.2) mg/dL Magnesium (1.6-2.3) mg/dL Total Bilirubin (0.2-1.3) mg/dL AST (14-36) U/L ALT (4-34) U/L Alkaline Phosphatase (38-126) U/L Total Protein (6.3-8.2) g/dL Albumin (3.5-5.0) g/dL Urine Color Colorless Urine Appearance Cloudy H (Clear) Urine pH 8.0 (5.0-8.0) Ur Specific [place] 1.014 (1.001-1.035) Urine Protein Trace H (Negative) Urine Glucose (UA) Negative (Negative) Urine Ketones Negative (Negative) Urine Blood Moderate H (Negative) Urine Nitrite Negative (Negative) Urine Bilirubin Negative (Negative) Urine Urobilinogen <2.0 (<2.0) mg/dL Ur Leukocyte Esterase Negative (Negative) Urine RBC 8 H (0-5) /hpf Urine WBC 1 (0-5) /hpf Ur Squamous Epith Cells 36 H (0-4) /hpf Urine Mucus Rare H (None) /hpf Urine HCG, Qual Not Detected (Not Detectd) Urine Opiates Screen (NotDetected) Ur Oxycodone Screen (NotDetected) Urine Methadone Screen (NotDetected) Ur Barbiturates Screen (NotDetected) U Tricyclic Antidepress (NotDetected) Ur Phencyclidine Scrn (NotDetected) Ur Amphetamines Screen (NotDetected) U Methamphetamines Scrn (NotDetected) U Benzodiazepines Scrn (NotDetected) [place] mmol/L Urine Cocaine Screen (NotDetected) U Marijuana (THC) Screen (NotDetected) Serum Alcohol mg/dL Disposition Clinical Impression: Seizure-like activity, Polysubstance abuse Disposition: LEFT AGAINST MEDICAL ADVICE Condition: Fair Referrals: Shakeel Levin MD [Primary Care Provider] - 1-2 days
[2024-01-01 17:47] LABS: Appearance,Urine Cloudy (Clear); Bilirubin,Urine Negative (Negative); Blood,Urine Moderate (Negative); Color,Urine Colorless; Glucose,Urine (UA) Negative (Negative); Ketones,Urine Negative (Negative); Leukocyte Esterase,Urine Negative (Negative); Mucus,Urine Rare /hpf; Nitrite,Urine Negative (Negative); Protein,Urine Trace (Negative); RBC,Urine 8 /hpf (0-5); Specific Gravity,Urine 1.014 (1.001-1.035); Squamous Epithelial Cell,Urine 36 /hpf (0-4); Urobilinogen,Urine <2.0 mg/dL (<2.0); WBC,Urine 1 /hpf (0-5)
[2024-01-01 17:49] LABS: Basophils % (A) 0 %; Eosinophils # (A) 0.2 k/uL (0-0.7); Eosinophils % (A) 2 %; HCT 36.6 % (34.0-46.0); HGB 11.6 gm/dL (11.4-16.0); Lymphocytes # (A) 1.6 k/uL (1.0-4.8); Lymphocytes % (A) 23 %; MCH 30.4 pg (25.0-35.0); MCHC 31.7 g/dL (31.0-37.0); Mean Platelet Volume 7.4; Monocytes # (A) 0.4 k/uL (0-1.0); Monocytes % (A) 5 %; Neutrophils # (A) 4.9 k/uL (1.3-7.7); Neutrophils % (A) 67 %; Platelet Count 275 k/uL (150-450); RBC 3.82 m/uL (3.80-5.40); RDW 13.6 % (11.5-15.5); WBC 7.2 k/uL (3.8-10.6)
[2024-01-01 17:52] LABS: ALT 28 U/L (4-34); African American GFR (CKD) >90 (>60 ml/min/1.73 sqM); Albumin 3.7 g/dL (3.5-5.0); Alcohol <10 mg/dL; Anion Gap 2 mmol/L; Blood Urea Nitrogen 10 mg/dL (7-17); Calcium 8.9 mg/dL (8.4-10.2); Carbon Dioxide 25 mmol/L (22-30); Chloride 109 mmol/L (98-107); Glucose 69 mg/dL (74-99); Lithium 0.7 mmol/L; Non-African American GFR(CKD) >90 (>60 ml/min/1.73 sqM); Sodium 136 mmol/L (137-145); Total Bilirubin 0.6 mg/dL (0.2-1.3); Total Protein 6.3 g/dL (6.3-8.2)
[2024-01-01 17:56] LABS: Amphetamine Screen,Urine Not Detected (NotDetected); Barbiturate Screen,Urine Not Detected (NotDetected); Benzodiazepines Screen,Urine Detected (NotDetected); Cocaine Screen,Urine Not Detected (NotDetected); Methadone Screen, Urine Not Detected (NotDetected); Opiate Screen,Urine Not Detected (NotDetected); Oxycodone Screen, Urine Detected (NotDetected); Phencyclidine Screen,Urine Not Detected (NotDetected); Tricyclic Antidepressant,Urine Not Detected (NotDetected); Urn Cannabinoid Scrn Detected (NotDetected)
[2024-01-01 17:57] LABS: AST 39 U/L (14-36); Alkaline Phosphatase 32 U/L (38-126); Magnesium 1.9 mg/dL (1.6-2.3); Potassium 4.3 mmol/L (3.5-5.1)
[2024-01-01] MEDS: SODIUM CHLORIDE 0.9% 1,000 ML IV STA (17:58)
--- NOTE | 2024-01-01 18:18 | XR ---
EXAMINATION TYPE: XR chest 2V DATE OF EXAM: 01/01/2024 6:06 PM CLINICAL INDICATION: Female, 38 years old with history of L sided thoracic pain; COMPARISON: Chest radiographs from 12/14/2023 TECHNIQUE: XR chest 2V Frontal view of the chest. FINDINGS: Lungs/Pleura: There is no evidence of pleural effusion, focal consolidation, or pneumothorax. Pulmonary vascularity: Unremarkable. Heart/mediastinum: Cardiomediastinal silhouette is unremarkable. Musculoskeletal: No acute osseous pathology. Other findings: None IMPRESSION: No acute cardiopulmonary disease/process. [facility], , 01/01/2024 6:16 PM
== END 2024-01-01 18:25 | disposition left against medical advice (07) ==
LOC: EC 16:12
DX: G40.909 Epilepsy, unspecified, not intractable, without status epilepticus (principal); F19.10 Other psychoactive substance abuse, uncomplicated; F17.290 Nicotine dependence, other tobacco product, uncomplicated; Z53.29 Procedure and treatment not carried out because of patient's decision for other reasons; Z88.2 Allergy status to sulfonamides; Z88.6 Allergy status to analgesic agent; Z88.8 Allergy status to other drugs, medicaments and biological substances
CPT/HCPCS: 36415; 93005; 80053; 80178; 83735; 85025; 81001; 81025; 80306; 71046; 99284; G0480; 80320

== ENCOUNTER 2024-02-06 13:27 | Emergency (ER) | payer OTHER ==
[2024-02-06 13:40] VITALS: TEMP 97.8
[2024-02-06 14:55] LABS: Basophils % (A) 0 %; Eosinophils # (A) 0.1 k/uL (0-0.7); Eosinophils % (A) 2 %; HGB 12.8 gm/dL (11.4-16.0); Lymphocytes # (A) 2.1 k/uL (1.0-4.8); Lymphocytes % (A) 27 %; MCH 31.5 pg (25.0-35.0); MCV 95.6 fL (80.0-100.0); Mean Platelet Volume 7.7; Monocytes # (A) 0.4 k/uL (0-1.0); Monocytes % (A) 5 %; Neutrophils % (A) 65 %; Platelet Count 337 k/uL (150-450); RBC 4.08 m/uL (3.80-5.40); RDW 12.8 % (11.5-15.5); WBC 7.7 k/uL (3.8-10.6)
--- NOTE | 2024-02-06 14:59 | ED ---
General Adult HPI - General Chief complaint: Recheck/Abnormal Lab/Rx Stated complaint: Abn labs-sent by PCP Time Seen by Provider: 02/06/24 13:58 Source: patient Mode of arrival: ambulatory Limitations: no limitations - History of Present Illness Initial comments: 38-year-old female presents emergency department. Patient sent into the emergen cy department from Dr. Felix's office. She was told that she had abnormal labs. She had seen him reporting to some shortness of breath and lower leg swelling. He completed some laboratory studies. Called her tonight and told her that her labs were abnormal and that she had to go to the hospital for further evaluation. She denies any chest pain or shortness of breath. No history of DVT or PE. No history of any coronary disease. No history of heart failure. She denies any concern for . No nausea or vomiting. No other alleviating, precipitating or modifying factors - Related Data Home Medications Medication Instructions Recorded Confirmed Desvenlafaxine [Pristiq ER] 100 mg PO DAILY 12/14/23 01/01/24 [place] Carbonate ER [Lithobid] 450 mg PO HS 12/14/23 01/01/24 Lurasidone [Latuda] 20 mg PO DAILY 12/14/23 01/01/24 diazePAM [Valium] 2 mg PO DAILY PRN 12/14/23 01/01/24 Previous Rx's Medication Instructions Recorded Albuterol Inhaler [Ventolin Hfa 2 puff INHALATION QID #8 gm 02/06/24 Inhaler] Albuterol Nebulized [Ventolin 2.5 mg INHALATION Q4H PRN #75 ml 02/06/24 Nebulized] methylPREDNISolone Dose Pack 4 mg PO DIRECTED #21 tab 02/06/24 [Medrol Dose Pack] Allergies Allergy/AdvReac Type Severity Reaction Status Date / Time morphine Allergy Swelling Verified 02/06/24 13:40 phenytoin [From Dilantin] Allergy Rash/Hives Verified 02/06/24 13:40 Sulfa (Sulfonamide Allergy Swelling Verified 02/06/24 13:40 Antibiotics) Review of Systems ROS Statement: Those systems with pertinent positive or pertinent negative responses have been documented in the HPI. ROS Other: All systems not noted in ROS Statement are negative. Past Medical History Past Medical History: Cancer, GERD/Reflux, Seizure Disorder Additional Past Medical History / Comment(s): cervical cancer. History of Any Multi-Drug Resistant Organisms: None Reported Past Surgical History: Orthopedic Surgery, Uterine Ablation Additional Past Surgical History / Comment(s): colonoscopy, EGD. cyst removal on uterus and neck surgery, LEEP Past Psychological History: Anxiety, Depression Smoking Status: Vaper Past Alcohol Use History: Occasional Past Drug Use History: Marijuana General Exam Limitations: no limitations General appearance: alert, in no apparent distress Head exam: Present: atraumatic, normocephalic, normal inspection Eye exam: Present: normal appearance, PERRL, EOMI. Absent: scleral icterus, conjunctival injection, periorbital swelling ENT exam: Present: normal exam, mucous membranes moist Neck exam: Present: normal inspection. Absent: tenderness, meningismus, ly mphadenopathy Respiratory exam: Present: normal lung sounds bilaterally. Absent: respiratory distress, wheezes, rales, rhonchi, stridor Cardiovascular Exam: Present: regular rate, normal rhythm, normal heart sounds. Absent: systolic murmur, diastolic murmur, rubs, gallop, clicks GI/Abdominal exam: Present: soft, normal bowel sounds. Absent: distended, tenderness, guarding, rebound, rigid Extremities exam: Present: normal inspection, full ROM, normal capillary refill. Absent: tenderness, pedal edema, joint swelling, calf tenderness Back exam: Present: normal inspection Neurological exam: Present: alert, oriented X3, CN II-XII intact Psychiatric exam: Present: normal affect, normal mood Skin exam: Present: warm, dry, intact, normal color. Absent: rash Course Vital Signs 02/06/24 02/06/24 13:36 17:07 Temperature 97.8 F Pulse Rate 55 L 50 L Respiratory 18 19 Rate Blood Pressure 133/84 138/82 O2 Sat by Pulse 100 100 Oximetry Medical Decision Making - Medical Decision Making Was pt. sent in by a medical professional or institution (, PA, BRANCH OFFICE MANAGER, urgent care, hospital, or shelter...) When possible be specific @ -Patient sent in from Dr. Felix's office Did you speak to anyone other than the patient for history (EMS, parent, family, police, friend...)? What history was obtained from this source @ -No Did you review nursing and triage notes (agree or disagree)? Why? @ -I reviewed and agree with nursing and triage notes Were old charts reviewed (outside hosp., previous admission, EMS record, old EKG, old radiological studies, urgent care reports/EKG's, shelter records)? Report findings @ -I reviewed the outpatient laboratory studies which were completed by Dr. Felix's office and revealed that she had an elevated D-dimer and mildly elev ated BNP Differential Diagnosis (chest pain, altered mental status, abdominal pain women, abdominal pain men, vaginal bleeding, weakness, fever, dyspnea, syncope, headache, dizziness, GI bleed, back pain, seizure, CVA, palpatations, mental health, musculoskeletal)? @ -Differential Chest Pain: Stable Angina, Unstable Angina, STEMI, NSTEMI Aortic Dissection, Pneumothorax, Musculoskeletal, Esophageal Spasm GERD, Cholecystitis, Pancreatitis, Zoster, this is not meant to be an all-inclusive list. EKG interpreted by me (3pts min.). @ -Yes and demonstrates sinus bradycardia with a rate of 49. TN interval 121. QRS 92. QTc of 390. No acute ST segment elevations or depressions X-rays interpreted by me (1pt min.). @ -Not done CT interpreted by me (1pt min.). @ -Does not demonstrate pulmonary edema or PE U/S interpreted by me (1pt. min.). @ -None done What testing was considered but not performed or refused? (CT, X-rays, U/S, labs)? Why? @ -None What meds were considered but not given or refused? Why? @ -None Did you discuss the management of the patient with other professionals (p katerinefessionals i.e. , PA, BRANCH OFFICE MANAGER, lab, RT, psych nurse, social work nurse, regulator inspector, teacher, bank officer, adult protective caseworker)? Give summary @ -No Was smoking cessation discussed for >3mins.? @ -No Was critical care preformed (if so, how long)? @ -No Were there social determinants of health that impacted care today? How? (Homelessness, low income, unemployed, alcoholism, drug addiction, transportation, low edu. Level, literacy, decrease access to med. care, prison, rehab)? @ -No Was there de-escalation of care discussed even if they declined (Discuss DNR or withdrawal of care, Hospice)? DNR status @ -No What co-morbidities impacted this encounter? (DM, HTN, Smoking, COPD, CAD, Cancer, CVA, ARF, Chemo, Hep., AIDS, mental health diagnosis, sleep apnea, morbid obesity)? @ -None Was patient admitted / discharged? Hospital course, mention meds given and route, prescriptions, significant lab abnormalities, going to OR and other pertinent info. @ -Upon arrival patient seen and evaluated in room 22. Thorough history and physical exam was performed. IV access was established. I did proceed with CT as patient did have outpatient elevated D-dimer. CT does not demonstrate a PE. Results are discussed with the patient. She is satisfied with her visit wants to go home. She needs to follow-up with her primary care doctor for further management of her symptoms. They may want to complete lower extremity ultrasounds. Patient is concerned more for infectious symptoms and is requesting refills of her inhaler and nebulizer solution. I did provide this to the patient. She is to return for any new or worsening symptoms. Patient agreeable plan was discharged home in stable condition Undiagnosed new problem with uncertain prognosis? @ -No Drug Therapy requiring intensive monitoring for toxicity (Heparin, Nitro, Insulin, Cardizem)? @ -No Were any procedures done? @ -No Diagnosis/symptom? @ -Bilateral lower extremity edema, elevated D-dimer, evaluation for PE Acute, or Chronic, or Acute on Chronic? @ -Acute Uncomplicated (without systemic symptoms) or Complicated (systemic symptoms)? @ -Complicated Side effects of treatment? @ -No Exacerbation, Progression, or Severe Exacerbation? @ -No Poses a threat to life or bodily function? How? (Chest pain, [place], NH, pneumonia, PE, COPD, DKA, ARF, appy, cholecystitis, CVA, Diverticulitis, Homicidal, Suicidal, threat to staff... and all critical care pts) @ -No - Lab Data Result diagrams: 02/06/24 14:40 02/06/24 14:40 Lab Results 02/06/24 02/06/24 02/06/24 Range/Units 14:40 14:40 14:40 WBC 7.7 (3.8-10.6) k/uL RBC 4.08 (3.80-5.40) m/uL Hgb 12.8 (11.4-16.0) gm/dL Hct 39.0 (34.0-46.0) % MCV 95.6 (80.0-100.0) fL MCH 31.5 (25.0-35.0) pg MCHC 33.0 (31.0-37.0) g/dL RDW 12.8 (11.5-15.5) % Plt Count 337 (150-450) k/uL MPV 7.7 Neutrophils % 65 % Lymphocytes % 27 % Monocytes % 5 % Eosinophils % 2 % Basophils % 0 % Neutrophils # 5.0 (1.3-7.7) k/uL Lymphocytes # 2.1 (1.0-4.8) k/uL Monocytes # 0.4 (0-1.0) k/uL Eosinophils # 0.1 (0-0.7) k/uL Basophils # 0.0 (0-0.2) k/uL PT 10.7 (10.0-12.5) sec INR 1.0 (<1.2) APTT 26.3 (22.0-30.0) sec Sodium 138 (137-145) mmol/L Potassium 4.3 (3.5-5.1) mmol/L Chloride 107 (98-107) mmol/L Carbon Dioxide 24 (22-30) mmol/L Anion Gap 7 mmol/L BUN 8 (7-17) mg/dL Creatinine 0.74 (0.52-1.04) mg/dL Est GFR (CKD-EPI)AfAm >90 (>60 ml/min/1.73 sqM) Est GFR (CKD-EPI)NonAf >90 (>60 ml/min/1.73 sqM) Glucose 78 (74-99) mg/dL Plasma Lactic Acid Raghu (0.7-2.0) mmol/L Calcium 9.3 (8.4-10.2) mg/dL Total Bilirubin 0.4 (0.2-1.3) mg/dL AST 24 (14-36) U/L ALT 15 (4-34) U/L Alkaline Phosphatase 51 (38-126) U/L Troponin I (0.000-0.034) ng/mL NT-Pro-B Natriuret Pep 407 pg/mL Total Protein 7.2 (6.3-8.2) g/dL Albumin 4.6 (3.5-5.0) g/dL Urine Color Urine Appearance (Clear) Urine pH (5.0-8.0) Ur Specific [place] (1.001-1.035) Urine Protein (Negative) Urine Glucose (UA) (Negative) Urine Ketones (Negative) Urine Blood (Negative) Urine Nitrite (Negative) Urine Bilirubin (Negative) Urine Urobilinogen (<2.0) mg/dL Ur Leukocyte Esterase (Negative) Urine RBC (0-5) /hpf Urine WBC (0-5) /hpf Ur Squamous Epith Cells (0-4) /hpf Urine Mucus (None) /hpf Urine HCG, Qual (Not Detectd) Influenza Type A (PCR) (Not Detectd) Influenza Type B (PCR) (Not Detectd) RSV (PCR) (Not Detectd) SARS-CoV-2 (PCR) (Not Detectd) 02/06/24 02/06/24 02/06/24 Range/Units 14:40 14:40 14:40 WBC (3.8-10.6) k/uL RBC (3.80-5.40) m/uL Hgb (11.4-16.0) gm/dL Hct (34.0-46.0) % MCV (80.0-100.0) fL MCH (25.0-35.0) pg MCHC (31.0-37.0) g/dL RDW (11.5-15.5) % Plt Count (150-450) k/uL MPV Neutrophils % % Lymphocytes % % Monocytes % % Eosinophils % % Basophils % % Neutrophils # (1.3-7.7) k/uL Lymphocytes # (1.0-4.8) k/uL Monocytes # (0-1.0) k/uL Eosinophils # (0-0.7) k/uL Basophils # (0-0.2) k/uL PT (10.0-12.5) sec INR (<1.2) APTT (22.0-30.0) sec Sodium (137-145) mmol/L Potassium (3.5-5.1) mmol/L Chloride (98-107) mmol/L Carbon Dioxide (22-30) mmol/L Anion Gap mmol/L BUN (7-17) mg/dL Creatinine (0.52-1.04) mg/dL Est GFR (CKD-EPI)AfAm (>60 ml/min/1.73 sqM) Est GFR (CKD-EPI)NonAf (>60 ml/min/1.73 sqM) Glucose (74-99) mg/dL Plasma Lactic Acid Raghu 0.6 L (0.7-2.0) mmol/L Calcium (8.4-10.2) mg/dL Total Bilirubin (0.2-1.3) mg/dL AST (14-36) U/L ALT (4-34) U/L Alkaline Phosphatase (38-126) U/L Troponin I <0.012 (0.000-0.034) ng/mL NT-Pro-B Natriuret Pep pg/mL Total Protein (6.3-8.2) g/dL Albumin (3.5-5.0) g/dL Urine Color Colorless Urine Appearance Cloudy H (Clear) Urine pH 6.0 (5.0-8.0) Ur Specific [place] 1.009 (1.001-1.035) Urine Protein Negative (Negative) Urine Glucose (UA) Negative (Negative) Urine Ketones Negative (Negative) Urine Blood Moderate H (Negative) Urine Nitrite Negative (Negative) Urine Bilirubin Negative (Negative) Urine Urobilinogen <2.0 (<2.0) mg/dL Ur Leukocyte Esterase Negative (Negative) Urine RBC 4 (0-5) /hpf Urine WBC 1 (0-5) /hpf Ur Squamous Epith Cells 15 H (0-4) /hpf Urine Mucus Rare H (None) /hpf Urine HCG, Qual (Not Detectd) Influenza Type A (PCR) (Not Detectd) Influenza Type B (PCR) (Not Detectd) RSV (PCR) (Not Detectd) SARS-CoV-2 (PCR) (Not Detectd) 02/06/24 02/06/24 Range/Units 14:40 14:40 WBC (3.8-10.6) k/uL RBC (3.80-5.40) m/uL Hgb (11.4-16.0) gm/dL Hct (34.0-46.0) % MCV (80.0-100.0) fL MCH (25.0-35.0) pg MCHC (31.0-37.0) g/dL RDW (11.5-15.5) % Plt Count (150-450) k/uL MPV Neutrophils % % Lymphocytes % % Monocytes % % Eosinophils % % Basophils % % Neutrophils # (1.3-7.7) k/uL Lymphocytes # (1.0-4.8) k/uL Monocytes # (0-1.0) k/uL Eosinophils # (0-0.7) k/uL Basophils # (0-0.2) k/uL PT (10.0-12.5) sec INR (<1.2) APTT (22.0-30.0) sec Sodium (137-145) mmol/L Potassium (3.5-5.1) mmol/L Chloride (98-107) mmol/L Carbon Dioxide (22-30) mmol/L Anion Gap mmol/L BUN (7-17) mg/dL Creatinine (0.52-1.04) mg/dL Est GFR (CKD-EPI)AfAm (>60 ml/min/1.73 sqM) Est GFR (CKD-EPI)NonAf (>60 ml/min/1.73 sqM) Glucose (74-99) mg/dL Plasma Lactic Acid Raghu (0.7-2.0) mmol/L Calcium (8.4-10.2) mg/dL Total Bilirubin (0.2-1.3) mg/dL AST (14-36) U/L ALT (4-34) U/L Alkaline Phosphatase (38-126) U/L Troponin I (0.000-0.034) ng/mL NT-Pro-B Natriuret Pep pg/mL Total Protein (6.3-8.2) g/dL Albumin (3.5-5.0) g/dL Urine Color Urine Appearance (Clear) Urine pH (5.0-8.0) Ur Specific [place] (1.001-1.035) Urine Protein (Negative) Urine Glucose (UA) (Negative) Urine Ketones (Negative) Urine Blood (Negative) Urine Nitrite (Negative) Urine Bilirubin (Negative) Urine Urobilinogen (<2.0) mg/dL Ur Leukocyte Esterase (Negative) Urine RBC (0-5) /hpf Urine WBC (0-5) /hpf Ur Squamous Epith Cells (0-4) /hpf Urine Mucus (None) /hpf Urine HCG, Qual Not Detected (Not Detectd) Influenza Type A (PCR) Not Detected (Not Detectd) Influenza Type B (PCR) Not Detected (Not Detectd) RSV (PCR) Not Detected (Not Detectd) SARS-CoV-2 (PCR) Not Detected (Not Detectd) Disposition Clinical Impression: Cough Disposition: HOME SELF-CARE Condition: Stable Instructions (If sedation given, give patient instructions): Shortness of Breath (ED) Additional Instructions: Please use the medications as prescribed. Follow-up and return for any new or worsening symptoms Prescriptions: methylPREDNISolone Dose Pack [Medrol Dose Pack] 4 mg PO DIRECTED #21 tab Albuterol Inhaler [Ventolin Hfa Inhaler] 2 puff INHALATION QID #8 gm Albuterol Nebulized [Ventolin Nebulized] 2.5 mg INHALATION Q4H PRN #75 ml PRN Reason: difficulty in breathing Is patient prescribed a controlled substance at d/c from ED?: No Referrals: Matheus Whitney DO [Primary Care Provider] - 1-2 days Time of Disposition: 17:02
[2024-02-06 15:09] LABS: Appearance,Urine Cloudy (Clear); Bilirubin,Urine Negative (Negative); Blood,Urine Moderate (Negative); Color,Urine Colorless; Glucose,Urine (UA) Negative (Negative); Ketones,Urine Negative (Negative); Leukocyte Esterase,Urine Negative (Negative); Mucus,Urine Rare /hpf; Nitrite,Urine Negative (Negative); Protein,Urine Negative (Negative); RBC,Urine 4 /hpf (0-5); Specific Gravity,Urine 1.009 (1.001-1.035); Squamous Epithelial Cell,Urine 15 /hpf (0-4); Urobilinogen,Urine <2.0 mg/dL (<2.0); WBC,Urine 1 /hpf (0-5)
[2024-02-06 15:10] LABS: Partial Thromboplastin Time 26.3 sec (22.0-30.0); Prothrombin Time 10.7 sec (10.0-12.5)
[2024-02-06 15:21] LABS: ALT 15 U/L (4-34); AST 24 U/L (14-36); African American GFR (CKD) >90 (>60 ml/min/1.73 sqM); Albumin 4.6 g/dL (3.5-5.0); Alkaline Phosphatase 51 U/L (38-126); Anion Gap 7 mmol/L; Blood Urea Nitrogen 8 mg/dL (7-17); Calcium 9.3 mg/dL (8.4-10.2); Carbon Dioxide 24 mmol/L (22-30); Chloride 107 mmol/L (98-107); Glucose 78 mg/dL (74-99); Non-African American GFR(CKD) >90 (>60 ml/min/1.73 sqM); Potassium 4.3 mmol/L (3.5-5.1); Sodium 138 mmol/L (137-145); Total Bilirubin 0.4 mg/dL (0.2-1.3); Total Protein 7.2 g/dL (6.3-8.2)
[2024-02-06 15:28] LABS: NT-Pro-B-Type Natriuretic Pept 407 pg/mL
--- NOTE | 2024-02-06 15:54 | CT ---
EXAMINATION TYPE: CT chest angio for PE DATE OF EXAM: 02/06/2024 COMPARISON: 12/19/2023 CLINICAL INDICATION: Female, 38 years old with history of elevated d-dimer; PHH, elevated d-dimer, ch est pain, SOB or PAIN TECHNIQUE: Ct angiogram of the chest performed with with IV Contrast, patient injected with 100 mL of Isovue 370 . MIP images are created and reviewed. CT DLP: 235.[address] CTDI: mGy Automated exposure control for dose reduction was used. FINDINGS: LUNGS: The lungs are grossly clear, there is no concerning parenchymal mass or nodule identified. T here is no pleural effusion or pneumothorax seen. The tracheobronchial tree is patent. MEDIASTINUM: There is satisfactory enhancement of the pulmonary artery and its branches, there is no CT evidence for pulmonary embolism. There are no greater than 1 cm hilar or mediastinal lymph nodes. No pericardial effusion is seen. OTHER: No additional significant abnormality is seen. IMPRESSION: 1. No acute pulmonary disease. 2. No acute cardiopulmonary disease 3. No interval change. Follow-up recommendations for incidental pulmonary nodules are per [employer] or [employer]. [facility], , 02/06/2024 3:51 PM
[2024-02-06 17:13] VITALS: BP 138/82; PULSE 50; RESP 19
== END 2024-02-06 17:09 | disposition home or self-care (01) ==
LOC: EC 13:27
DX: R05.9 Cough, unspecified (principal); R60.0 Localized edema; R79.1 Abnormal coagulation profile; R00.1 Bradycardia, unspecified; F17.290 Nicotine dependence, other tobacco product, uncomplicated; Z88.2 Allergy status to sulfonamides; Z88.5 Allergy status to narcotic agent; Z88.8 Allergy status to other drugs, medicaments and biological substances
CPT/HCPCS: 99284; 36415; 93005; 83880; 80053; 83605; 84484; 85025; 85610; 85730; 81001; 81025; 87636; 71275; Q9967

== ENCOUNTER 2024-05-07 18:15 | Emergency (ER) | payer OTHER ==
[2024-05-07 18:43] VITALS: RESP 20
[2024-05-07 20:21] LABS: Influenza A Detected (Not Detectd); Influenza B Not Detected (Not Detectd); RSV Not Detected (Not Detectd)
[2024-05-07 21:18] LABS: Basophils % (A) 0 %; Eosinophils # (A) 0.1 k/uL (0-0.7); Eosinophils % (A) 2 %; HCT 36.7 % (34.0-46.0); HGB 11.9 gm/dL (11.4-16.0); Lymphocytes # (A) 0.4 k/uL (1.0-4.8); Lymphocytes % (A) 9 %; MCH 29.8 pg (25.0-35.0); MCHC 32.3 g/dL (31.0-37.0); MCV 92.3 fL (80.0-100.0); Mean Platelet Volume 8.5; Monocytes # (A) 0.3 k/uL (0-1.0); Monocytes % (A) 6 %; Neutrophils # (A) 3.6 k/uL (1.3-7.7); Neutrophils % (A) 81 %; Platelet Count 162 k/uL (150-450); RBC 3.98 m/uL (3.80-5.40); RDW 13.4 % (11.5-15.5); WBC 4.4 k/uL (3.8-10.6)
[2024-05-07 21:22] LABS: Appearance,Urine Clear (Clear); Bacteria,Urine Rare /hpf; Bilirubin,Urine Negative (Negative); Blood,Urine Large (Negative); Color,Urine Light Yellow; Glucose,Urine (UA) Negative (Negative); Ketones,Urine 1+ (Negative); Leukocyte Esterase,Urine Negative (Negative); Mucus,Urine Rare /hpf; Nitrite,Urine Negative (Negative); Protein,Urine Trace (Negative); RBC,Urine 53 /hpf (0-5); Specific Gravity,Urine 1.013 (1.001-1.035); Squamous Epithelial Cell,Urine 6 /hpf (0-4); Urobilinogen,Urine <2.0 mg/dL (<2.0); WBC,Urine 2 /hpf (0-5)
--- NOTE | 2024-05-07 21:27 | ED ---
Seizure HPI - General Chief Complaint: Seizure Stated Complaint: fever body pains chills Time Seen by Provider: 05/07/24 18:45 Source: patient, family Limitations: no limitations - History of Present Illness Initial Comments: 38-year-old female with past medical history of seizure disorder presents emergency department with cough, congestion and shortness of breath. Symptoms started yesterday. Patient has felt weak, tired with muscle aches. She has also been having fevers. Reports that she took Tylenol approximately 4 hours ago. She denies any sick contacts with similar symptoms. Reports that she had a seizure. Denies any injury during the seizure. States that she does have breakthrough seizures and reports that she is currently not on any medications for seizure disorder. Reports that she is supposed to be seeing a neurologist next month. She denies concern for . No vomiting. Does admit to some diarrhea. No dysuria, hematuria or difficulty voiding. No chest pain. No history of asthma. No other alleviating, precipitating or modifying factors - Related Data Home Medications Medication Instructions Recorded Confirmed Desvenlafaxine [Pristiq ER] 100 mg PO DAILY 12/14/23 01/01/24 [place] Carbonate ER [Lithobid] 450 mg PO HS 12/14/23 01/01/24 Lurasidone [Latuda] 20 mg PO DAILY 12/14/23 01/01/24 diazePAM [Valium] 2 mg PO DAILY PRN 12/14/23 01/01/24 Previous Rx's Medication Instructions Recorded Albuterol Inhaler [Ventolin Hfa 2 puff INHALATION QID #8 gm 02/06/24 Inhaler] Albuterol Nebulized [Ventolin 2.5 mg INHALATION Q4H PRN #75 ml 02/06/24 Nebulized] methylPREDNISolone Dose Pack 4 mg PO DIRECTED #21 tab 02/06/24 [Medrol Dose Pack] Albuterol Inhaler [Ventolin Hfa 2 puff INHALATION TID #8 gm 05/07/24 Inhaler] Benzonatate [Tessalon Perles] 100 mg PO TID PRN #30 capsule 05/07/24 Oseltamivir [Tamiflu] 75 mg PO Q12HR #10 cap 05/07/24 Allergies Allergy/AdvReac Type Severity Reaction Status Date / Time morphine Allergy Swelling Verified 02/06/24 13:40 phenytoin [From Dilantin] Allergy Rash/Hives Verified 02/06/24 13:40 Sulfa (Sulfonamide Allergy Swelling Verified 02/06/24 13:40 Antibiotics) Review of Systems ROS Statement: Those systems with pertinent positive or pertinent negative responses have been documented in the HPI. ROS Other: All systems not noted in ROS Statement are negative. Past Medical History Past Medical History: Cancer, GERD/Reflux, Seizure Disorder Additional Past Medical History / Comment(s): cervical cancer. History of Any Multi-Drug Resistant Organisms: None Reported Past Surgical History: Hysterectomy, Orthopedic Surgery, Uterine Ablation Additional Past Surgical History / Comment(s): colonoscopy, EGD. cyst removal on uterus and neck surgery, LEEP Past Psychological History: Anxiety, Depression Smoking Status: Vaper Past Alcohol Use History: Occasional Past Drug Use History: Marijuana General Exam Limitations: no limitations General appearance: alert, in no apparent distress Head exam: Present: atraumatic, normocephalic, normal inspection Eye exam: Present: normal appearance, PERRL, EOMI. Absent: scleral icterus, c onjunctival injection, periorbital swelling ENT exam: Present: normal exam, mucous membranes moist Neck exam: Present: normal inspection. Absent: tenderness, meningismus, lymphadenopathy Respiratory exam: Present: wheezes. Absent: respiratory distress, rales, rhonchi, stridor Cardiovascular Exam: Present: normal rhythm, tachycardia, normal heart sounds. Absent: systolic murmur, diastolic murmur, rubs, gallop, clicks GI/Abdominal exam: Present: soft, normal bowel sounds. Absent: distended, tenderness, guarding, rebound, rigid Extremities exam: Present: normal inspection, full ROM, normal capillary refill. Absent: tenderness, pedal edema, joint swelling, calf tenderness Back exam: Present: normal inspection Neurological exam: Present: alert, oriented X3, CN II-XII intact Psychiatric exam: Present: normal affect, normal mood Skin exam: Present: warm, dry, intact, normal color. Absent: rash Course Vital Signs 05/07/24 05/07/24 05/07/24 18:41 21:25 22:09 Temperature 101.3 F H 102.1 F H Pulse Rate 105 H 60 76 Respiratory 20 20 Rate Blood Pressure 144/84 120/64 O2 Sat by Pulse 97 98 Oximetry 05/07/24 05/07/24 22:23 23:08 Temperature 98.3 F Pulse Rate 80 82 Respiratory 20 Rate Blood Pressure 103/68 O2 Sat by Pulse 99 Oximetry Medical Decision Making - Medical Decision Making Was pt. sent in by a medical professional or institution (, PA, HOG DRIVER, urgent care, hospital, or alf...) When possible be specific @ -No Did you speak to anyone other than the patient for history (EMS, parent, family, police, friend...)? What history was obtained from this source @ -No Did you review nursing and triage notes (agree or disagree)? Why? @ -I reviewed and agree with nursing and triage notes Were old charts reviewed (outside hosp., previous admission, EMS record, old E KG, old radiological studies, urgent care reports/EKG's, alf records)? Report findings @ -No old charts were reviewed Differential Diagnosis (chest pain, altered mental status, abdominal pain women, abdominal pain men, vaginal bleeding, weakness, fever, dyspnea, syncope, headache, dizziness, GI bleed, back pain, seizure, CVA, palpatations, mental health, musculoskeletal)? @ -Differential Fever: Pneumonia, viral URI, endocarditis, myocarditis, pericarditis, otitis, sinusitis, peritonsillar Abscess, retropharyngeal Abscess, epiglottitis, peritonitis, appendicitis, Rosario cystitis, diverticulitis, hepatitis, colitis, UTI, PID, TOA, pyelonephritis, prostatitis, epididymitis, meningitis, encephalitis, pulmonary embolism, CVA, thyroid storm, pancreatitis, adrenal crisis, cavernous sinus thrombosis, this is not meant to be an all-inclusive list. EKG interpreted by me (3pts min.). @ -yes and demonstrates sinus bradycardia with a rate of 59. SC interval 104. QRS 85. QTc of 403. No acute ST segment elevations or depressions X-rays interpreted by me (1pt min.). @ -Yes which demonstrates slightly hazy opacity to the right midlung CT interpreted by me (1pt min.). @ -None done U/S interpreted by me (1pt. min.). @ -None done What testing was considered but not performed or refused? (CT, X-rays, U/S, labs)? Why? @ -None What meds were considered but not given or refused? Why? @ -None Did you discuss the management of the patient with other professionals (professionals i.e. , PA, HOG DRIVER, lab, RT, psych nurse, director social, river captain, teacher, privacy officer, case packer and sealer)? Give summary @ -No Was smoking cessation discussed for >3mins.? @ -No Was critical care preformed (if so, how long)? @ -No Were there social determinants of health that impacted care today? How? (Homelessness, low income, unemployed, alcoholism, drug addiction, transportation, low edu. Level, literacy, decrease access to med. care, intermediate, rehab)? @ -No Was there de-escalation of care discussed even if they declined (Discuss DNR or withdrawal of care, Hospice)? DNR status @ -No What co-morbidities impacted this encounter? (DM, HTN, Smoking, COPD, CAD, Cancer, CVA, ARF, Chemo, Hep., AIDS, mental health diagnosis, sleep apnea, morbid obesity)? @ -Seizure disorder Was patient admitted / discharged? Hospital course, mention meds given and route, prescriptions, significant lab abnormalities, going to OR and other pertinent info. @ -Upon arrival patient seen and evaluated in bed 2. Thorough history and physical exam was performed. Patient was given Motrin for fever control. Laboratory studies are conducted. Chest x-ray was performed. Patient tested positive for influenza. She was given a breathing treatment. I did speak with her about Tamiflu and the patient does not try this medication. The risks and benefits are discussed with the patient. Patient will alternate Motrin with Tylenol every 4 hours for fever control. I will prescribe an inhaler and Tessalon Perles. She is to follow-up with her primary care doctor in 2 to 4 days and return for any new or worsening symptoms. Patient agreeable plan was discharged in stable condition Undiagnosed new problem with uncertain prognosis? @ -No Drug Therapy requiring intensive monitoring for toxicity (Heparin, Nitro, Insulin, Cardizem)? @ -No Were any procedures done? @ -No Diagnosis/symptom? @ -Acute cough, acute fever, influenza A, breakthrough seizure with history of seizure disorder Acute, or Chronic, or Acute on Chronic? @ -Acute Uncomplicated (without systemic symptoms) or Complicated (systemic symptoms)? @ -Complicated Side effects of treatment? @ -No Exacerbation, Progression, or Severe Exacerbation? @ -No Poses a threat to life or bodily function? How? (Chest pain, [place], [place], pneumonia, PE, COPD, DKA, ARF, appy, cholecystitis, CVA, Diverticulitis, Homicidal, Suicidal, threat to staff... and all critical care pts) @ -No - Lab Data Result diagrams: 05/07/24 21:11 05/07/24 21:11 Lab Results 05/07/24 05/07/24 05/07/24 Range/Units 19:29 21:11 21:11 WBC 4.4 (3.8-10.6) k/uL RBC 3.98 (3.80-5.40) m/uL Hgb 11.9 (11.4-16.0) gm/dL Hct 36.7 (34.0-46.0) % MCV 92.3 (80.0-100.0) fL MCH 29.8 (25.0-35.0) pg MCHC 32.3 (31.0-37.0) g/dL RDW 13.4 (11.5-15.5) % Plt Count 162 (150-450) k/uL MPV 8.5 Neutrophils % 81 % Lymphocytes % 9 % Monocytes % 6 % Eosinophils % 2 % Basophils % 0 % Neutrophils # 3.6 (1.3-7.7) k/uL Lymphocytes # 0.4 L (1.0-4.8) k/uL Monocytes # 0.3 (0-1.0) k/uL Eosinophils # 0.1 (0-0.7) k/uL Basophils # 0.0 (0-0.2) k/uL Sodium (137-145) mmol/L Potassium (3.5-5.1) mmol/L Chloride (98-107) mmol/L Carbon Dioxide (22-30) mmol/L Anion Gap mmol/L BUN (7-17) mg/dL Creatinine (0.52-1.04) mg/dL Est GFR (CKD-EPI)AfAm (>60 ml/min/1.73 sqM) Est GFR (CKD-EPI)NonAf (>60 ml/min/1.73 sqM) Glucose (74-99) mg/dL Plasma Lactic Acid Raghu (0.7-2.0) mmol/L Calcium (8.4-10.2) mg/dL Total Bilirubin (0.2-1.3) mg/dL AST (14-36) U/L ALT (4-34) U/L Alkaline Phosphatase (38-126) U/L Total Protein (6.3-8.2) g/dL Albumin (3.5-5.0) g/dL Urine Color Light Yellow Urine Appearance Clear (Clear) Urine pH 6.0 (5.0-8.0) Ur Specific [place] 1.013 (1.001-1.035) Urine Protein Trace H (Negative) Urine Glucose (UA) Negative (Negative) Urine Ketones 1+ H (Negative) Urine Blood Large H (Negative) Urine Nitrite Negative (Negative) Urine Bilirubin Negative (Negative) Urine Urobilinogen <2.0 (<2.0) mg/dL Ur Leukocyte Esterase Negative (Negative) Urine RBC 53 H (0-5) /hpf Urine WBC 2 (0-5) /hpf Ur Squamous Epith Cells 6 H (0-4) /hpf Urine Bacteria Rare H (None) /hpf Urine Mucus Rare H (None) /hpf Urine HCG, Qual (Not Detectd) Influenza Type A (PCR) Detected A (Not Detectd) Influenza Type B (PCR) Not Detected (Not Detectd) RSV (PCR) Not Detected (Not Detectd) SARS-CoV-2 (PCR) Not Detected (Not Detectd) 05/07/24 05/07/24 05/07/24 Range/Units 21:11 21:11 21:11 WBC (3.8-10.6) k/uL RBC (3.80-5.40) m/uL Hgb (11.4-16.0) gm/dL Hct (34.0-46.0) % MCV (80.0-100.0) fL MCH (25.0-35.0) pg MCHC (31.0-37.0) g/dL RDW (11.5-15.5) % Plt Count (150-450) k/uL MPV Neutrophils % % Lymphocytes % % Monocytes % % Eosinophils % % Basophils % % Neutrophils # (1.3-7.7) k/uL Lymphocytes # (1.0-4.8) k/uL Monocytes # (0-1.0) k/uL Eosinophils # (0-0.7) k/uL Basophils # (0-0.2) k/uL Sodium 131 L (137-145) mmol/L Potassium 3.7 (3.5-5.1) mmol/L Chloride 100 (98-107) mmol/L Carbon Dioxide 23 (22-30) mmol/L Anion Gap 8 mmol/L BUN 8 (7-17) mg/dL Creatinine 0.65 (0.52-1.04) mg/dL Est GFR (CKD-EPI)AfAm >90 (>60 ml/min/1.73 sqM) Est GFR (CKD-EPI)NonAf >90 (>60 ml/min/1.73 sqM) Glucose 81 (74-99) mg/dL Plasma Lactic Acid Raghu 0.6 L (0.7-2.0) mmol/L Calcium 8.8 (8.4-10.2) mg/dL Total Bilirubin 0.5 (0.2-1.3) mg/dL AST 25 (14-36) U/L ALT 17 (4-34) U/L Alkaline Phosphatase 41 (38-126) U/L Total Protein 6.7 (6.3-8.2) g/dL Albumin 4.2 (3.5-5.0) g/dL Urine Color Urine Appearance (Clear) Urine pH (5.0-8.0) Ur Specific [place] (1.001-1.035) Urine Protein (Negative) Urine Glucose (UA) (Negative) Urine Ketones (Negative) Urine Blood (Negative) Urine Nitrite (Negative) Urine Bilirubin (Negative) Urine Urobilinogen (<2.0) mg/dL Ur Leukocyte Esterase (Negative) Urine RBC (0-5) /hpf Urine WBC (0-5) /hpf Ur Squamous Epith Cells (0-4) /hpf Urine Bacteria (None) /hpf Urine Mucus (None) /hpf Urine HCG, Qual Not Detected (Not Detectd) Influenza Type A (PCR) (Not Detectd) Influenza Type B (PCR) (Not Detectd) RSV (PCR) (Not Detectd) SARS-CoV-2 (PCR) (Not Detectd) Disposition Clinical Impression: Influenza A Disposition: HOME SELF-CARE Condition: Stable Instructions (If sedation given, give patient instructions): Influenza (ED) Additional Instructions: Take the Tamiflu every 12 hours. If you start having vomiting, stop this medication. I recommend you use the inhaler every 4 hours. Alternate taking Motrin 600 mg (3 tablets of over the counter motrin) with Tylenol 650 mg every 4 hours. Take the cough suppressant when needed. Follow-up with your doctor in 2 to 4 days. Return for any new or worsening symptoms Prescriptions: Oseltamivir [Tamiflu] 75 mg PO Q12HR #10 cap Benzonatate [Tessalon Perles] 100 mg PO TID PRN #30 capsule PRN Reason: Cough Albuterol Inhaler [Ventolin Hfa Inhaler] 2 puff INHALATION TID #8 gm Is patient prescribed a controlled substance at d/c from ED?: No Referrals: Favian Felix III, MD [Primary Care Provider] - 1-2 days Time of Disposition: 22:21
[2024-05-07 21:34] LABS: ALT 17 U/L (4-34); AST 25 U/L (14-36); African American GFR (CKD) >90 (>60 ml/min/1.73 sqM); Albumin 4.2 g/dL (3.5-5.0); Alkaline Phosphatase 41 U/L (38-126); Anion Gap 8 mmol/L; Blood Urea Nitrogen 8 mg/dL (7-17); Calcium 8.8 mg/dL (8.4-10.2); Carbon Dioxide 23 mmol/L (22-30); Chloride 100 mmol/L (98-107); Glucose 81 mg/dL (74-99); Non-African American GFR(CKD) >90 (>60 ml/min/1.73 sqM); Potassium 3.7 mmol/L (3.5-5.1); Sodium 131 mmol/L (137-145); Total Bilirubin 0.5 mg/dL (0.2-1.3); Total Protein 6.7 g/dL (6.3-8.2)
[2024-05-07] MEDS: SODIUM CHLORIDE 0.9% 1,000 ML IV STA (21:38)
[2024-05-07] MEDS: IBUPROFEN 600 MG TAB PO STA (21:39)
[2024-05-07] MEDS: KETOROLAC 15 MG/ML 1 ML VIAL IVP STA (21:39)
[2024-05-07] MEDS: IPRATROPIUM-ALBUTEROL 3 ML NEB INHALATION STA (22:09)
[2024-05-07] MEDS: methylPREDNISolone SOD SUCCI 125 MG/2 ML VIAL IV STA (22:53)
[2024-05-07] MEDS: guaiFENesin-Coden 100-10MG/5ML 10 ML CUP PO STA (22:55)
[2024-05-07 23:14] VITALS: BP 103/68; PULSE 82; TEMP 98.3
--- NOTE | 2024-05-07 23:36 | XR ---
EXAMINATION TYPE: XR chest 2V DATE OF EXAM: 05/07/2024 9:52 PM CLINICAL INDICATION:Female, 38 years old with history of Weakness; [facility] COMPARISON: Chest radiograph 01/01/2024 TECHNIQUE: XR chest 2V Frontal view of the chest. FINDINGS: Lungs/Pleura: Subtle right medial lung zone hazy airspace opacity. No pneumothorax. Pulmonary vascularity: Mild pulmonary vascular congestion. Heart/mediastinum: Cardiomediastinal silhouette is unremarkable. Musculoskeletal: No acute osseous pathology. Other findings: None IMPRESSION: Right medial lung zone hazy airspace disease. Mild pulmonary vascular congestion suggested. [facility], , 05/07/2024 11:34 PM
== END 2024-05-07 23:14 | disposition home or self-care (01) ==
LOC: EC 18:15
DX: G40.909 Epilepsy, unspecified, not intractable, without status epilepticus (principal); J10.1 Influenza due to other identified influenza virus with other respiratory manifestations; R00.1 Bradycardia, unspecified; F17.290 Nicotine dependence, other tobacco product, uncomplicated; Z88.2 Allergy status to sulfonamides; Z88.5 Allergy status to narcotic agent; Z88.8 Allergy status to other drugs, medicaments and biological substances
CPT/HCPCS: 36415; 94640; 93005; 80053; 83605; 85025; 81001; 81025; 87636; 71046; 99284; 96374; 96375; 96361; J1885; J2919

== ENCOUNTER → 2024-07-26 | Outpatient (CLI) | payer OTHER ==
--- NOTE | 2024-07-27 17:56 | MR ---
INDICATION: Patient age:Female; 38 years old; Reason for study: G40.909; [facility]. COMPARISON: CT brain C-spine 12/14/2023, MR brain 12/15/2022, CT brain 12/14/2022, CTA head and neck 12/14/2022. TECHNIQUE: Multi planar, multi sequence imaging was performed through the brain without administratio n of intravenous contrast. FINDINGS: The crespo-white junctions, ventricular system, basal cisterns appear unremarkable. Age-appropriate cer ebral parenchymal volume. Diffusion-weighted imaging shows no evidence of restricted diffusion to sug gest acute/subacute infarct. Intracranial arterial flow voids are maintained. Midline structures show no abnormality. No FLAIR signal abnormalities. The mesial temporal lobes are symmetric and unremarka ble. The susceptibility weighted images do not reveal any evidence for micro-hemorrhage. The bone marrow signal is within normal limits. The globes are unremarkable. Mild mucosal thickening of the ethmoid sinuses and right maxillary sinus. Minimal mucosal thickening in the inferior left ma xillary sinus. IMPRESSION: No evidence of intracranial mass or acute/subacute infarct. No significant change from prior MR. [facility], , 07/27/2024 5:54 PM
== END | disposition home or self-care (01) ==
LOC: RADMRIMAIN 19:26
PROVIDERS: ATTEND Psychiatry & Neurology Neurology
DX: G40.909 Epilepsy, unspecified, not intractable, without status epilepticus (principal)
CPT/HCPCS: 70551